=== PATIENT | female | born 1950 | race Caucasian/White ===

== ENCOUNTER 2021-12-13 21:08 | Inpatient (IN) | payer OTHER, MEDICARE, SELFPAY ==
[2021-12-13 21:09] VITALS: BP 164/67; PULSE 117; RESP 18; TEMP 37.2; O2SAT 86; BMI 24.5
--- NOTE | 2021-12-13 21:17 | EKG12_ITS ---
Test Reason : DYSRHYTHMIA Blood Pressure : / mmHG Vent. Rate : 117 BPM Atrial Rate : 117 BPM P-R Int : 158 ms QRS Dur : 088 ms QT Int : 328 ms P-R-T Axes : 016 066 080 degrees QTc Int : 457 ms Sinus tachycardia Nonspecific ST abnormality Abnormal ECG Confirmed by GERSON MORRIS, HAYLEE ([id number]), purchase request editor KALYAN MATHEW ([id number]) on 12/16/2021 1:06:00 PM Referred By: VERNA Confirmed By:HAYLEE NIETO MD
--- NOTE | 2021-12-13 21:21 | EDS_ITS ---
HPI History of Present Illness Chief Complaint: Shortness of Breath Detail of Chief Complaint: Shortness of breath the past several days with productive cough Informant: patient and spouse/S.O. Onset/Context/Timing Onset: Days Context: gradual Timing: Continuous and Waxes and wanes Quality: Positive for Dyspnea on exertion and Wheezing; Negative for Orthopnea and PND Current Severity: Moderate Maximum Severity: Severe Worsened by: Exertion and Coughing Relieved by: Nothing Associated Symptoms cough, post nasal drip, yellow sputum and green sputum; Negative for ear pain, fever, sore throat, subjective, chills or sweats Chest Pain: Positive for None Narrative Narrative: Patient is a 71-year-old unvaccinated elderly woman with history of COPD. She smokes 1/2 to 1 pack/day. She smokes since she was a teenager. She denies history of pneumonia. She denies fever or chills. She denies headache. She denies ocular, visual or auditory symptoms. She states she has chronic nasal congestion. She denies sore throat. Denies change in voice. She denies difficulty swallowing or problems with speech. She denies chest discomfort. She states she has shortness of breath walking across the room, which is new the past 24 to 48 hours. She denies history of VTE. She has no risk factors for VTE. She denies leg pain, swelling or discoloration. She denies GI symptoms. She denies symptoms. PE Risk Factors: Negative for Cancer, OCP + Smoking + > 35, Prior DVT or PE, Recent immobilization, Recent surgery and Recent travel Prior similar symptoms: No Recent Illness/Hospitalization: No PFSH PFSH Medical History no medical history Home Medications NK 12/13/21 [History Last Taken Unknown] Allergy/AdvReac Type Severity Reaction Status Date / Time nitrofurantoin Allergy PT UNSURE Verified 12/13/21 21:14 [From Macrodantin] OF REACTION Surgical History no surgical history Social History (Updated 12/13/21 @ 21:[address] Angel León MD) household members: spouse Smoking Status: Heavy Smoker (>10/day) substance use type: does not use ROS ROS ED Constitutional Constitutional ED: Denies chills, fever(s), sweats or weight loss Eyes Eyes: Denies blurry vision, change in vision or diplopia ENT ENT ED: Denies ear pain, rhinorrhea or sore throat Cardiovascular Cardiovascular: Reports racing heartbeat; Denies chest pain, orthopnea, palpitations or paroxysmal nocturnal dyspnea Respiratory/Chest Respiratory/Chest: Reports cough, dyspnea, dyspnea on exertion and sputum; Denies orthopnea or paroxysmal nocturnal dyspnea Gastrointestinal Gastrointestinal: Denies abdominal pain, constipation, diarrhea, melena, nausea or vomiting Genitourinary Genitourinary ED: Denies dysuria, hematuria or urinary frequency Musculoskeletal Musculoskeletal: Denies arthralgias, back pain, myalgias or neck pain Integumentary Denies Abrasions or rash Neurologic Neurologic: Denies headache(s), paresthesias or weakness Psychiatric Psychiatric: Reports anxiety; Denies depression or suicidal thoughts Endocrine Endocrinology: Denies polydipsia, polyphagia or polyuria Hematologic/Lymphatic Hematologic/Lymphatic: Denies anemia, easy bleeding or easy bruising EXAM Physical Exam Const Vital Signs: 12/13/21 21:09 12/13/21 21:22 12/13/21 21:24 Temperature 99.0 F Temperature Source Temporal Pulse Rate 117 H 115 H Respiratory Rate 18 28 H Respiratory Effort Short of Breath Labored Respiratory Depth Shallow Respiratory Pattern Tachypnea Blood Pressure 164/67 H Blood Pressure Mean 99 Pulse Ox 86 90 95 Oxygen Delivery Method Room Air Nasal Cannula Nasal Cannula Oxygen Flow Rate (L/min) 2 3 Positive well nourished, well developed and cachectic General Appearance ED: well developed, cachectic and other Patient is in respiratory distress with use of accessory muscles and mild retractions. She is able to say 1 word before gasping for breath. ; Negative for NAD Nutritional Appearance: cachectic HEENT Reports TM's clear and moist mucous membranes HEENT Narrative: Nares patent. Ears normal. Posterior pharynx out erythema or exudate. atraumatic; Negative for trauma or tenderness Tympanic Membrane ED: Yes TM's clear Eyes PERRL and EOMs intact bilaterally General Eye ED: Negative for pale conjunctiva or scleral icterus Neck no lymphadenopathy, supple, no meningeal signs and no JVD Neck Narrative: Trachea is midline. There is no inspiratory or expiratory wheezing/stridor noted. Resp No normal respiratory effort and No clear to auscultation bilaterally Effort and Inspection: Negative for pain with movement Auscultation: wheezes expiratory wheezes and scattered wheezes and diminished lung sounds Cardio regular rhythm, S1 normal heart sound, S2 normal heart sound and no murmurs Rate: tachycardic GI non-tender, non-distended and no masses Auscultation: normoactive bowel sounds Palpation: soft Back/Spine no CVA tenderness and normal to inspection Extremity normal to inspection Extremity Narrative: There is no asymmetry, swelling, discoloration, leg vein distention, palpable cords or tenderness along the distribution of the deep venous system. General Extremety ED: Negative for edema or tenderness General Extremity: Negative for edema Neuro oriented x3, CN's II-XII intact bilaterally and no sensory deficits noted Koppel Coma Scale: document GCS findings Spontaneous Obeys Commands Oriented 15 Sensorium / Orientation: alert Motor Exam: strength 5/5 throughout Psych mental status grossly normal Thought Process: normal thought process Skin no wounds and skin turgor normal Lesions: no lesions Rashes: no rashes Trauma: other Acrocyanosis MDM MDM MDM Narrative Medical decision making narrative: Pain sent during exam coughed thick green- yellow sputum. She has scattered wheezing and abnormal breath sounds bilateral but diminished breath sounds. Concerned she has pneumonia versus exacerbation of COPD. She was treated with DuoNeb and albuterol. Will receive dose of Solu- Medrol as well as antibiotics. Chest x-ray was obtained to evaluate for pneu monia. EKG to rule out cardiac ischemia. Appropriate blood work to assess white count, evaluate for anemia, evidence of endorgan dysfunction as well as renal status. I did review radiology report and radiologist raises concern for bilateral lower pneumonia. ABG reveals a normal pH and CO2 however patient is tachypneic and would indicate that patient has chronic CO2 retention. Lab Data Attestation: I reviewed the patient's lab results. Lab results narrative: Lactate is normal. Labs: Laboratory Results - last 24 hr 12/13/21 12/13/21 12/13/21 21:22 21:22 21:22 WBC 16.1 H RBC 5.38 Hgb 14.7 Hct 47.0 MCV 87.4 MCH 27.3 MCHC 31.3 L RDW Std Deviation 43.9 RDW Coeff of Mariama 13.7 Plt Count 278 MPV 10.8 Immature Gran % (Auto) 0.400 Neut % (Auto) 82.8 H Lymph % (Auto) 10.3 L [place] % (Auto) 6.3 Eos % (Auto) 0.0 Baso % (Auto) 0.2 Absolute Neuts (auto) 13.4 H Absolute Lymphs (auto) 1.66 Nucleated RBC % 0 Sodium 135 L Potassium 3.6 Chloride 102 Carbon Dioxide 25.0 Anion Gap 8 BUN 16 Creatinine 0.95 Estim Creat Clear Calc 40.99 Est GFR (MDRD) Af Amer 75 Est GFR (MDRD) Non-Af 62 BUN/Creatinine Ratio 16.8 Glucose 206 H Lactic Acid 1.3 Calcium 9.6 Total Bilirubin 0.70 AST 25 ALT 25 Alkaline Phosphatase 118 H Total Protein 8.2 Albumin 3.6 Globulin 4.6 H Albumin/Globulin Ratio 0.8 L ABG Data ABG results: ABG 12/13/21 21:48 Specimen Type ART Sample Site L Radial pH 7.41 Bicarbonate Actual 25.5 Total CO2 27 Base Excess 1 O2 Saturation 96 ABG pCO2 40.1 ABG pO2 78 Rajesh Test Positive O2 Delivery Device Cannula Liter Flow 3.0 Radiography Chest X-Ray - ED: 1 View, Read by ED Physician (View portable chest x-ray is independently interpreted by ia at 2147 as negative for any acute pathology. There is minor chronic changes. Cardiac silhouette and size normal. Perihilar regions unremarkable. Osseous structures are unremarkable.) and - (Reviewing chest x-ray on monitor versus the portable machine reveals increased interstitial markings right lower lobe which may represent an early infiltrate.) Diagnostic Testing: Clinical Impression(s) from Imaging Studies Chest X-Ray 12/13/21 21:43 IMPRESSION: Subtle ill-defined heterogeneous opacities involving the lower lungs bilaterally. Consider pneumonia in the appropriate clinical setting. Electronically Signed: Jacinto Conley MD at 22:00 EDT , EKG Initial EKG: Attestation: I personally reviewed and interpreted this EKG as follows: Interpretation: Sinus Tachycardia (Sinus tachycardia with a ventricular rate of 117. ND interval 258 ms. QS duration 88 ms. QT duration 228 ms. Maria Stein is normal. There is artifact which computer is reading is nonspecific ST-T wave changes.) Discharge Plan Dx/Rx/DC Orders Clinical Impression: Acute respiratory failure with hypoxia, Pneumonia of both lower lobes, Acute exacerbation of chronic obstructive pulmonary disease, Sinus tachycardia Disposition Disposition: Acute Care Hospital [facility]
[2021-12-13 21:22] VITALS: O2SAT 90
[2021-12-13 21:24] VITALS: PULSE 115; RESP 24; RESP 28; O2SAT 95
[2021-12-13] MEDS: Ipratropium/Albuterol Sulfate 3 ML AMPUL.NEB INHALATION (21:24)
[2021-12-13 21:42] LABS: Absolute Lymphocyte Count 1.66 X10^3/uL (0.83-4.51); Absolute Neutrophil Count 13.4 X10^3/uL (2.0-7.7); Basophil# 0.03 X10^3/uL; Basophil% 0.2 % (0-1); Hemoglobin 14.7 g/dL (12.0-15.0); Lymphocyte # 1.66 X10^3/ul (0.83-4.51); Lymphocyte % 10.3 % (19-41); Mean Corp Hgb Conc 31.3 g/dL (32-36); Mean Corpuscular Hgb 27.3 pg (27.0-32.0); Mean Corpuscular Volume 87.4 fL (81-99); Mean Platelet Vol. 10.8 fl (6.2-12.0); Monocyte# 1.01 X10^3/uL; Monocyte% 6.3 % (0-10); NRBC Flagged by Analyzer 0 % (0-5); Neutrophil # 13.35 X10^3/uL (2.7-7.7); Neutrophil % 82.8 % (47-70); Platelet Count 278 K/mm3 (150-450); RBC Distribution Width CV 13.7 % (11.6-14.6); RBC Distribution Width SD 43.9 fl (35.1-43.9); Red Blood Count 5.38 M/mm3 (4.2-5.4); White Blood Count 16.1 K/mm3 (4.4-11.0)
--- NOTE | 2021-12-13 21:43 | RAD_ITS ---
EXAM: XR CHEST, 1 VIEW CLINICAL INDICATION: Dyspnea, GONCALVES, productive cough TECHNIQUE: Frontal view of the chest. This report was created using [employer] report generation technology. COMPARISON: None. FINDINGS: LUNGS AND PLEURAL SPACES: Emphysema suspected at the upper lobes where there is oligemia and increased lucency. Small right pleural effusion. Interstitial thickening involving the mid to lower lungs. Differential may include interstitial pulmonary edema. Subtle ill-defined heterogeneous opacities involving the lower lungs bilaterally. No pneumothorax. HEART: Unremarkable. Cardiac silhouette not enlarged. MEDIASTINUM: Central airways and mediastinal contour are unremarkable. BONES/JOINTS: Degenerative changes of the spine and acromioclavicular joints. SOFT TISSUES: Unremarkable. RAD/Chest 1 View (Portable) IMPRESSION: Subtle ill-defined heterogeneous opacities involving the lower lungs bilaterally. Consider pneumonia in the appropriate clinical setting. Electronically Signed: Jacinto Conley MD at 22:00 EDT ,
[2021-12-13] MEDS: MethylPREDNISolone 125 MG/2 ML Vial 60 MG IV (21:49)
[2021-12-13] MEDS: 0.9% Normal Saline 1,000 ML 150 ML IV (21:50)
[2021-12-13] MEDS: levoFLOXacin IV 750 MG/150 ML BAG 100 MG IV (21:53)
[2021-12-13 21:55] LABS: Allen Test Positive; Base Excess 1 mmol/L (-2 to +2); Bicarbonate 25.5 mmol/L (22-26); Blood Gas Specimen Type ART; O2 Delivery Device Cannula; PO2 78 mmHG (75-100); SITE L Radial; SO2 96 % (95-99); Total Carbon Dioxide 27 mmol/L; pCO2 40.1 mmHg (35-45); pH 7.41 (7.35-7.45)
[2021-12-13 22:00] LABS: ALB/GLOB Ratio 0.8 RATIO (0.9-2.4); AST(SGOT) 25 U/L (15-37); Alanine Aminotransfer ALT/SGPT 25 U/L (13-56); Albumin, Serum 3.6 g/dL (3.2-5.0); Alkaline Phosphatase 118 U/L (45-117); Anion Gap 8 (5-15); BUN 16 mg/dL (7-18); BUN/Creat Ratio 16.8 RATIO (10-20); Calcium,Total 9.6 mg/dL (8.5-10.1); Chloride 102 mmol/L (98-107); Creatinine, Serum 0.95 mg/dL (0.55-1.02); EST Glomerular Filtration Rate 62 mL/min (>60); Est Glom Filt Rate - Afr Amer 75 mL/min (>60); Estimated Creatinine Clearance 40.99 ml/min; Globulin 4.6 g/dL (2.2-4.2); Glucose 206 mg/dL (74-106); Potassium 3.6 mmol/L (3.5-5.1); Protein, Total 8.2 g/dL (6.4-8.2); Sodium Level 135 mmol/L (136-145)
[2021-12-13 22:09] LABS: Lactic Acid 1.3 mmol/L (0.4-1.9)
--- NOTE | 2021-12-13 22:29 | HP.PCM.HOS_ITS ---
HPI - General General Date of Admission: 12/13/21 Date of Service: 12/13/21 Chief Complaint: Dyspnea, productive cough. HPI Narrative The patient is a 71 y/o F w/ PMHx: COPD, Tobacco use on no current treatments who presents to the [facility] ED on 12/13/21 with history of 2 days of significantly worsening fatigue, malaise, productive cough of green thick sputum as well as significant cough that is been intractable with wheezing not improving with rest with no specific fevers or chills prompting ED evaluation. Patient has not seen a vocational aide nor has she ever had any pulmonary function testing performed. She has continued to smoke 2 pack/day since she was in her early teens. In the ED she does note some mild improvement following aerosol treatments. Work-up in the ED included T 99, heart rate initially 117, BP 164/67, respiratory rate 18, 86% on room air with improvement to 95% on 3 L nasal cannula however patient had significant work of breathing accessory muscle usage per discussion with ED physician and upon evaluation initially, CBC with WC 16.1, hemoglobin 14.7, platelet 278 with left shift, ABG not marked appearing, CMP with sodium 135, glucose 206, lactic acid 1.3, alk phos 118 otherwise not marked appearing, chest x-ray with subtle ill-defined heterogeneous opacities in both bilateral lungs concerning for pneumonia, blood culture x2 pending per ED, pending COVID rapid antigen per ED. In the ED patient ministered Solu-Medrol, Levaquin, DuoNeb therapy and normal saline. [facility] Medical History COPD (chronic obstructive pulmonary disease) Smoker Medical History no medical history Home Medications NK 12/13/21 [History Last Taken Unknown] Allergy/AdvReac Type Severity Reaction Status Date / Time nitrofurantoin Allergy PT UNSURE Verified 12/13/21 21:14 [From Macrodantin] OF REACTION Family History (Updated 12/13/21 @ 23:[address] Freida Dior MD) Mother Heart disease Dementia Father Lung cancer Underlying tobacco use history concurrently. Surgical History (Updated 12/13/21 @ 23:[address] Freida Dior MD) History of bilateral tubal ligation Hx of hernia repair Surgical History no surgical history Social History (Updated 12/13/21 @ 23:[address] Freida Dior MD) household members: spouse Smoking Status: Current every day smoker tobacco type: cigarettes Smoking packs per day: 2 Smoking cigarettes per day: 40.0 Years smoked: 55 Smoking pack-years: 110.00 alcohol intake: never substance use type: does not use ROS ROS Narrative Admission Review of Systems: CONSTITUTIONAL: No weight loss, fever, chills, + weakness or fatigue. HEENT: Eyes: No visual loss, blurred vision, double vision or yellow sclerae. Ears, Nose, Throat: No hearing loss, sneezing, congestion, runny nose or sore throat. SKIN: No rash or itching, lesions, wounds. CARDIOVASCULAR: No chest pain, chest pressure or chest discomfort, palpitations, edema, orthopnea, syncopal events. RESPIRATORY: + Shortness of breath, cough with productive sputum, wheezing, No hemoptysis. GASTROINTESTINAL: No anorexia, nausea, vomiting or diarrhea, abdominal pain, melena, BRBPR. GENITOURINARY: No dysuria, frequency, urgency or retention. NEUROLOGICAL: No headache, dizziness, syncope, paralysis, ataxia, numbness or tingling in the extremities, focal weakness, change in bowel or bladder control, seizure. MUSCULOSKELETAL: + muscle, back pain, joint pain or stiffness. HEMATOLOGIC: No anemia, bleeding or bruising. LYMPHATICS: No enlarged nodes. No history of splenectomy. PSYCHIATRIC: No history of depression or anxiety. ENDOCRINOLOGIC: No reports of sweating, cold or heat intolerance. No polyuria or polydipsia. ALLERGIES: + rhinitis. Vital Signs Vital Signs Vital Signs: 12/13/21 21:09 12/13/21 21:22 12/13/21 21:24 Temperature 99.0 F Temperature Source Temporal Pulse Rate 117 H 115 H Respiratory Rate 18 28 H Respiratory Effort Short of Breath Labored Respiratory Depth Shallow Respiratory Pattern Tachypnea Blood Pressure 164/67 H Blood Pressure Mean 99 Pulse Ox 86 90 95 Oxygen Delivery Method Room Air Nasal Cannula Nasal Cannula Oxygen Flow Rate (L/min) 2 3 Weight Weight: 130 lb Body Mass Index (BMI) 24.5 Physical Exam Narrative Physical Examination: General: Awake, alert, oriented x 3 and cooperative, seated upright in the ED bed, fatigued, increased work of breathing and some accessory muscle usage, improved significantly since initial ED presentation. Skin: Normal color, normal turgor, no icterus, no cyanosis. HEENT: AT/NC, EOMI, PERRLA, mildly dry MM, no carotid bruits or JVD noted. Lungs: Diffusely diminished, greater bases, extremely tight, currently no wheezi ng but not moving air well, increased work of breathing accessory muscle usage although improved since initial ED presentation, respiratory distress is lessening. Heart: Mildly tachycardic with regular rhythm; no gallop, rub audible. Abdomen: Soft, NTTP, ND, distant normal BS, no HSM. Extremities: No cyanosis, clubbing, or edema. Neurological: Patient awake, alert, oriented as noted, cognitive function appears baseline intact; pupils equally reactive to light and accommodation, cranial nerves II-XII grossly normal, moving all 4 extremities, no focal deficits, strength severely globally Lara secondary to acute presentation. Psychiatric: Affect appears fatigued, respiratory distress is improving, no acute evidence of depressive or anxiety feelings. Results Lab / Micro Data Result Diagrams: 12/13/21 21:22 12/13/21 21:22 Labs: Laboratory Results - last 24 hr 12/13/21 21:22: WBC 16.1 H, RBC 5.38, Hgb 14.7, Hct 47.0, MCV 87.4, MCH 27.3, MCHC 31.3 L, RDW Std Deviation 43.9, RDW Coeff of Mariama 13.7, Plt Count 278, MPV 10.8, Immature Gran % (Auto) 0.400, Neut % (Auto) 82.8 H, Lymph % (Auto) 10.3 L, [place] % (Auto) 6.3, Eos % (Auto) 0.0, Baso % (Auto) 0.2, Absolute Neuts (auto) 13.4 H, Absolute Lymphs (auto) 1.66, Nucleated RBC % 0 12/13/21 21:22: Sodium 135 L, Potassium 3.6, Chloride 102, Carbon Dioxide 25.0, Anion Gap 8, BUN 16, Creatinine 0.95, Estim Creat Clear Calc 40.99, Est GFR (MDRD) Af Amer 75, Est GFR (MDRD) Non-Af 62, BUN/Creatinine Ratio 16.8, Glucose 206 H, Calcium 9.6, Total Bilirubin 0.70, AST 25, ALT 25, Alkaline Phosphatase 118 H, Total Protein 8.2, Albumin 3.6, Globulin 4.6 H, Albumin/Globulin Ratio 0.8 L 12/13/21 21:22: Lactic Acid 1.3 ABG Data ABG results: ABG 12/13/21 21:48 Specimen Type ART Sample Site L Radial pH 7.41 Bicarbonate Actual 25.5 Total CO2 27 Base Excess 1 O2 Saturation 96 ABG pCO2 40.1 ABG pO2 78 Rajesh Test Positive O2 Delivery Device Cannula Liter Flow 3.0 Radiology Impression Chest X-Ray 12/13/21 21:43 IMPRESSION: Subtle ill-defined heterogeneous opacities involving the lower lungs bilaterally. Consider pneumonia in the appropriate clinical setting. Electronically Signed: Jacinto Conley MD at 22:00 EDT , Assessment & Plan Assessment/Plan (1) COPD (chronic obstructive pulmonary disease): QUALIFIERS: COPD type: COPD with acute exacerbation Qualified Code(s): J44.1 - Chronic obstructive pulmonary disease with (acute) exacerbation (2) Pneumonia of both lower lobes: QUALIFIERS: Pneumonia type: due to unspecified organism Qualified Code(s): J18.9 - Pneumonia, unspecified organism (3) Acute respiratory failure with hypoxia: PLAN: The patient is a 71 y/o F w/ PMHx: COPD, Tobacco use on no current treatments who presents to the [facility] ED on 12/13/21 with history of 2 days of significantly worsening fatigue, malaise, productive cough of green thick sputum as well as significant cough that is been intractable with wheezing not improving with rest with no specific fevers or chills prompting ED evaluation. #1. Acute Hypoxic Respiratory Failure secondary to Acute COPD Exacerbation and CAP Pneumonia: Will admit to [facility] given patient's clinically improved since initial ED presentation, respiratory distress is lessening, maintain on oxygen with wean as tolerated to room air, continue ATC duonebs, PRN albuterol, maintained on IV Rocephin and Azithromycin, HOB, IS parameters w/ pending sputum cultures, respiratory viral panel and urine antigens. Bld cx x 2 obtained in the ED. strongly encouraged following completion of this therapy and discharge the patient would benefit from follow-up with pulmonary medicine, pulmonary function testing and potentially imaging given the fact that she is smoked nearly 2 pack/day for 55 years. #2. Elevated BP without hypertensive diagnosis: Certainly could be secondary to #1, continue to closely monitor and add regimen orally if appropriate, as needed IV hydralazine in interim. #3. Hyperglycemia: Possibly stress response, admission glucose 206, hemoglobin A1c has been requested and if consistent with diabetes with transition to ADA diet with Accu-Cheks with insulin sliding scale and nutrition consultation for education and teaching. #4. Tobacco Abuse: Encouraged cessation, inpatient consultation per RT, NR if desired. #5. DVT prophylaxis: SCDs, Lovenox Charges/Coding Visit Charges Inpatient E&M: 01924 Init Hosp L3
[2021-12-13 23:00] VITALS: RESP 17
[2021-12-13] MEDS: LORazepam 0.5 MG Tablet PO (23:00)
[2021-12-13 23:01] VITALS: BP 151/85; PULSE 85; RESP 15; TEMP 37.2; O2SAT 98
[2021-12-13 23:29] VITALS: BMI 25.6
[2021-12-13 23:34] VITALS: BP 144/79; PULSE 104; RESP 24; TEMP 37.1; O2SAT 95
[2021-12-14] VITALS (10 sets, daily range): BP systolic 107–146; BP diastolic 63–86; PULSE 89–100; RESP 18–20; TEMP 36.6–36.8; O2SAT 92–97
--- NOTE | 2021-12-14 00:16 | NURSING ---
pt refusing scd's
--- NOTE | 2021-12-14 00:21 | NURSING ---
Patient very reluctant to care on admission. Refusing iv fluids through the night as patient is tired of pump beeping. Also does not want woke up through the shift. Dr. Dior aware that patient is refusing vitals being taken as the VSA recommends.
--- NOTE | 2021-12-14 00:25 | NURSING ---
pt refusing fluids. pt vsa q 1-2 hr vitals. pt states you are not going to wake me up. pt requesting that she not be woken up until 9am. notifyuliet
[2021-12-14] MEDS: 0.9% Saline Lock 10 ML Syringe IV ×2 (06:05→21:16)
--- NOTE | 2021-12-14 07:02 | PCM.PN.HOSP ---
Subjective Subjective Patient is a 71-year-old female with history of COPD, tobacco dependence presented with progressive shortness of breath. Checks x-ray obtained in the ED demonstrated ill-defined heterogeneous opacities involving the lower lungs bilaterally. Admitted to regular nursing floor for further management Objective Data Objective Data Vital Signs: Vital Signs Temp Pulse Resp BP Pulse Ox 98.3 F 92 20 H 146/63 H 92 12/14/21 06:08 12/14/21 06:08 12/14/21 06:08 12/14/21 06:08 12/14/21 06:08 Oxygen Flow Rate (L/min) 2 Oxygen Delivery Method Nasal Cannula Weight: 63.4 kg Body Mass Index (BMI) 25.6 Intake & Output: Intake and Output for Last 24 Hours 12/12/21 12/13/21 12/14/21 23:59 23:59 23:59 Intake Total 427.5 / 427.5 271.67 / 271.67 Balance 427.5 / 427.5 271.67 / 271.67 Lab / Micro Data Result Diagrams: 12/13/21 21:22 12/13/21 21:22 Labs: Laboratory Results - last 24 hr 12/13/21 21:22: WBC 16.1 H, RBC 5.38, Hgb 14.7, Hct 47.0, MCV 87.4, MCH 27.3, MCHC 31.3 L, RDW Std Deviation 43.9, RDW Coeff of Mariama 13.7, Plt Count 278, MPV 10.8, Immature Gran % (Auto) 0.400, Neut % (Auto) 82.8 H, Lymph % (Auto) 10.3 L, [place] % (Auto) 6.3, Eos % (Auto) 0.0, Baso % (Auto) 0.2, Absolute Neuts (auto) 13.4 H, Absolute Lymphs (auto) 1.66, Nucleated RBC % 0 12/13/21 21:22: Sodium 135 L, Potassium 3.6, Chloride 102, Carbon Dioxide 25.0, Anion Gap 8, BUN 16, Creatinine 0.95, Estim Creat Clear Calc 40.99, Est GFR (MDRD) Af Amer 75, Est GFR (MDRD) Non-Af 62, BUN/Creatinine Ratio 16.8, Glucose 206 H, Calcium 9.6, Total Bilirubin 0.70, AST 25, ALT 25, Alkaline Phosphatase 118 H, Total Protein 8.2, Albumin 3.6, Globulin 4.6 H, Albumin/Globulin Ratio 0.8 L 12/13/21 21:22: Lactic Acid 1.3 Micro: Microbiology 12/13/21 23:35 Mucosa - Nasopharyngeal Respiratory Panel (PCR) - Final 12/13/21 21:22 Nasal Secretion SARS-CoV-2 & FLU Antigen (Rapid) - Final ABG Data ABG results: ABG 12/13/21 21:48 Specimen Type ART Sample Site L Radial pH 7.41 Bicarbonate Actual 25.5 Total CO2 27 Base Excess 1 O2 Saturation 96 ABG pCO2 40.1 ABG pO2 78 Rajesh Test Positive O2 Delivery Device Cannula Liter Flow 3.0 Radiography Diagnostic Testing: Radiology Impression Chest X-Ray 12/13/21 21:43 IMPRESSION: Subtle ill-defined heterogeneous opacities involving the lower lungs bilaterally. Consider pneumonia in the appropriate clinical setting. Electronically Signed: Jacinto Conley MD at 22:00 EDT , Physical Exam Narrative GENERAL: cooperative HEENT: Atraumatic; EYES; Anicteric, Normal Conjunctiva NECK; supple, normal thyroid, RESPIRATORY: Diminished to auscultation CARDIOVASCULAR: Regular S1 S2, GI: soft, normoactive bowel sounds, : No Renal angle tenderness; EXTREMITIES: No edema, no clubbing, MUSCULOSKELETAL: no muscle wasting NEURO: Awake; no lateralizing signs. SKIN: No Rash PSYCH; Flat affect Assessment & Plan Assessment/Plan (1) COPD (chronic obstructive pulmonary disease): QUALIFIERS: COPD type: COPD with acute exacerbation Qualified Code(s): J44.1 - Chronic obstructive pulmonary disease with (acute) exacerbation (2) Pneumonia of both lower lobes: QUALIFIERS: Pneumonia type: due to unspecified organism Qualified Code(s): J18.9 - Pneumonia, unspecified organism PLAN: Patient is a 71-year-old female with history of COPD, tobacco dependence presented with progressive shortness of breath. Checks x-ray obtained in the ED demonstrated ill-defined heterogeneous opacities involving the lower lungs bilaterally. Admitted to regular nursing floor for further management 1. Acute hypoxic respiratory failure ruled out 2. Pneumonia - Suspected to be secondary to streptococcal pneumonia, Blood and sputum cultures sent. Patient placed on Rocephin and Zithromax and placed on oxygen titrated to keep Pulse Ox greater than 90 3. COPD with acute exacerbation ? Managed with bronchodilator regimen systemic steroids and antibiotics 4. Elevated blood pressure ? Monitoring with every shift vital 5. Elevated glucose levels ? Hemoglobin A1c ordered to rule out diabetes 6. Tobacco dependence - Counseled on cessation, offered nicotine patch for tobacco cravings 7. DVT prophylaxis ? Lovenox Charges/Coding Visit Charges Inpatient E&M: 24710 Subs Hosp L2
[2021-12-14] MEDS: Albuterol 2.5 MG/3 ML VIAL.NEB. INHALATION ×2 (08:24→20:16)
[2021-12-14 09:17] LABS: Absolute Lymphocyte Count 1.09 X10^3/uL (0.83-4.51); Absolute Neutrophil Count 9.6 X10^3/uL (2.0-7.7); Basophil# 0.01 X10^3/uL; Basophil% 0.1 % (0-1); Hematocrit 45.7 % (37-47); Hemoglobin 13.9 g/dL (12.0-15.0); Lymphocyte # 1.09 X10^3/ul (0.83-4.51); Lymphocyte % 10.1 % (19-41); Mean Corp Hgb Conc 30.4 g/dL (32-36); Mean Corpuscular Hgb 26.6 pg (27.0-32.0); Mean Corpuscular Volume 87.5 fL (81-99); Monocyte# 0.09 X10^3/uL; Monocyte% 0.8 % (0-10); NRBC Flagged by Analyzer 0 % (0-5); Neutrophil # 9.55 X10^3/uL (2.7-7.7); Neutrophil % 88.8 % (47-70); Platelet Count 296 K/mm3 (150-450); RBC Distribution Width CV 13.4 % (11.6-14.6); RBC Distribution Width SD 43.4 fl (35.1-43.9); Red Blood Count 5.22 M/mm3 (4.2-5.4); White Blood Count 10.8 K/mm3 (4.4-11.0)
[2021-12-14 09:37] LABS: ALB/GLOB Ratio 0.8 RATIO (0.9-2.4); AST(SGOT) 22 U/L (15-37); Alanine Aminotransfer ALT/SGPT 25 U/L (13-56); Albumin, Serum 3.3 g/dL (3.2-5.0); Alkaline Phosphatase 115 U/L (45-117); Anion Gap 8 (5-15); BUN 18 mg/dL (7-18); BUN/Creat Ratio 19.3 RATIO (10-20); Calcium,Total 9.4 mg/dL (8.5-10.1); Chloride 100 mmol/L (98-107); Creatinine, Serum 0.93 mg/dL (0.55-1.02); EST Glomerular Filtration Rate 63 mL/min (>60); Est Glom Filt Rate - Afr Amer 76 mL/min (>60); Estimated Creatinine Clearance 41.87 ml/min; Globulin 4.4 g/dL (2.2-4.2); Glucose 177 mg/dL (74-106); Potassium 3.2 mmol/L (3.5-5.1); Protein, Total 7.7 g/dL (6.4-8.2); Sodium Level 137 mmol/L (136-145)
[2021-12-14] MEDS: Ceftriaxone 1 GM/50 ML BAG IV (09:43)
[2021-12-14] MEDS: Enoxaparin 40 MG/0.4 ML Syringe SC (09:44)
[2021-12-14 09:47] LABS: Hemoglobin A1c 6.1 % (3.8-5.6)
--- NOTE | 2021-12-14 11:20 | CASEMGMT ---
ROLA PAINTER assessment: Face to Face with patient for initial transition planning/care coordination assessment. ROLA PAINTER introduced self and role at [facility], pt voices understanding and consents to assessment. Pt is sitting up on side of bed on 2L nc in no distress. Pt is A/Ox4 and answers all questions appropriately, but is very short and annoyed with questions being asked. Pt is also upset that she can't just ambulate freely around room and pt's RN updated. Pt's daughter is at bedside during assessment. Care providers, pharmacy, and demographics verified. Presentation: Pt c/o SOB that started yesterday and is getting worse Admitting dx: Resp failure, COPD exac, pna PCP: Pt states no current PCP Specialists: None [facility]erred [facility]acy: [facility] Insurance: Cigna/MCR A Prescription Benefit: Yes Living Will/HPOA: Pt does not have LW/HPOA and declines AD info. LNOK: Christos Vasquez, Living Arrangements: Pt lives with in mobile home with railed steps in and states no concerns at home. Pt is independent with ADL's. Transportation: Pt drives and states no transportation concerns. DME/HHC: Pt states no current DME or need for any DME. Pt states she would absolutely not be going home with oxygen at discharge. Pt states no hx of HHC or SNF. Pt states no concerns with going home at time of discharge. Pt is retired. Pt states smokes 1.5 pack/day but does not drink ETOH. Pt voices no further concerns/needs. CM to follow for any further discharge planning/needs. Advised pt to ask for CM if any further questions/concerns/needs arise, voices understanding. Pt Goal: Home Plan[place] [facility]
[2021-12-14] MEDS: Ipratropium/Albuterol Sulfate 3 ML AMPUL.NEB INHALATION (15:02)
[2021-12-14] MEDS: Sodium Chloride 0.65% 1 SPRAY SPRAY.BTL NASAL (21:17)
[2021-12-15] VITALS (10 sets, daily range): BP systolic 128–145; BP diastolic 62–79; PULSE 76–95; RESP 18–20; TEMP 36.4–36.7; O2SAT 84–96
[2021-12-15] MEDS: 0.9% Saline Lock 10 ML Syringe IV ×2 (05:37→21:27)
[2021-12-15 05:54] LABS: Absolute Lymphocyte Count 1.26 X10^3/uL (0.83-4.51); Basophil# 0.02 X10^3/uL; Basophil% 0.1 % (0-1); Hematocrit 43.9 % (37-47); Hemoglobin 13.4 g/dL (12.0-15.0); Lymphocyte # 1.26 X10^3/ul (0.83-4.51); Lymphocyte % 9.2 % (19-41); Mean Corp Hgb Conc 30.5 g/dL (32-36); Mean Corpuscular Hgb 27.1 pg (27.0-32.0); Mean Corpuscular Volume 88.9 fL (81-99); Mean Platelet Vol. 10.4 fl (6.2-12.0); Monocyte# 0.42 X10^3/uL; Monocyte% 3.1 % (0-10); NRBC Flagged by Analyzer 0 % (0-5); Neutrophil # 11.99 X10^3/uL (2.7-7.7); Neutrophil % 87.2 % (47-70); Platelet Count 341 K/mm3 (150-450); RBC Distribution Width CV 13.4 % (11.6-14.6); RBC Distribution Width SD 43.9 fl (35.1-43.9); Red Blood Count 4.94 M/mm3 (4.2-5.4); White Blood Count 13.8 K/mm3 (4.4-11.0)
[2021-12-15 06:55] LABS: Anion Gap 5 (5-15); BUN 23 mg/dL (7-18); BUN/Creat Ratio 25.1 RATIO (10-20); Calcium,Total 9.4 mg/dL (8.5-10.1); Chloride 101 mmol/L (98-107); Creatinine, Serum 0.92 mg/dL (0.55-1.02); EST Glomerular Filtration Rate 64 mL/min (>60); Est Glom Filt Rate - Afr Amer 78 mL/min (>60); Estimated Creatinine Clearance 42.32 ml/min; Glucose 155 mg/dL (74-106); Magnesium 2.6 mg/dL (1.6-2.6); Potassium 3.6 mmol/L (3.5-5.1); Sodium Level 137 mmol/L (136-145)
[2021-12-15] MEDS: Ipratropium/Albuterol Sulfate 3 ML AMPUL.NEB INHALATION ×3 (07:25→19:22)
--- NOTE | 2021-12-15 07:27 | PCM.PN.HOSP ---
Subjective Subjective Seen complains of persistent cough which is productive. Per nursing staff she desaturated easily once oxygen is weaned off. She was apparently reluctant to be discharged home on oxygen she did states she will consider it if needed Objective Data Objective Data Vital Signs: Vital Signs Temp Pulse Resp BP Pulse Ox 97.6 F L 83 18 139/62 H 96 12/15/21 06:04 12/15/21 06:04 12/15/21 06:04 12/15/21 06:04 12/15/21 06:04 Oxygen Flow Rate (L/min) 2 Oxygen Delivery Method Nasal Cannula Weight: 63 kg Body Mass Index (BMI) 25.6 Intake & Output: Intake and Output for Last 24 Hours 12/13/21 12/14/21 12/15/21 23:59 23:59 23:59 Intake Total 427.5 / 427.5 1659.67 / 1659.67 Balance 427.5 / 427.5 1659.67 / 1659.67 Lab / Micro Data Result Diagrams: 12/15/21 05:19 12/15/21 05:19 Labs: Laboratory Results - last 24 hr 12/14/21 09:06: WBC 10.8, RBC 5.22, Hgb 13.9, Hct 45.7, MCV 87.5, MCH 26.6 L, MCHC 30.4 L, RDW Std Deviation 43.4, RDW Coeff of Mariama 13.4, Plt Count 296, MPV 10.0, Immature Gran % (Auto) 0.200, Neut % (Auto) 88.8 H, Lymph % (Auto) 10.1 L, [place] % (Auto) 0.8, Eos % (Auto) 0.0, Baso % (Auto) 0.1, Absolute Neuts (auto) 9.6 H, Absolute Lymphs (auto) 1.09, Nucleated RBC % 0 12/14/21 09:06: Sodium 137, Potassium 3.2 L, Chloride 100, Carbon Dioxide 29.0, Anion Gap 8, BUN 18, Creatinine 0.93, Estim Creat Clear Calc 41.87, Est GFR (MDRD) Af Amer 76, Est GFR (MDRD) Non-Af 63, BUN/Creatinine Ratio 19.3, Glucose 177 H, Calcium 9.4, Total Bilirubin 0.40, AST 22, ALT 25, Alkaline Phosphatase 115, Total Protein 7.7, Albumin 3.3, Globulin 4.4 H, Albumin/Globulin Ratio 0.8 L 12/14/21 09:06: Hemoglobin A1c 6.1 H 12/15/21 05:19: WBC 13.8 H, RBC 4.94, Hgb 13.4, Hct 43.9, MCV 88.9, MCH 27.1, MCHC 30.5 L, RDW Std Deviation 43.9, RDW Coeff of Mariama 13.4, Plt Count 341, MPV 10.4, Immature Gran % (Auto) 0.400, Neut % (Auto) 87.2 H, Lymph % (Auto) 9.2 L, [place] % (Auto) 3.1, Eos % (Auto) 0.0, Baso % (Auto) 0.1, Absolute Neuts (auto) 12.0 H, Absolute Lymphs (auto) 1.26, Nucleated RBC % 0 12/15/21 05:19: Sodium 137, Potassium 3.6, Chloride 101, Carbon Dioxide 31.0, Anion Gap 5, BUN 23 H, Creatinine 0.92, Estim Creat Clear Calc 42.32, Est GFR (MDRD) Af Amer 78, Est GFR (MDRD) Non-Af 64, BUN/Creatinine Ratio 25.1 H, Glucose 155 H, Calcium 9.4, Magnesium 2.6 Micro: Microbiology 12/14/21 08:25 Sputum, Expectorated/Coughed Gram Stain - Final 12/14/21 06:45 Urine, Clean Catch Legionella Antigen - Final 12/14/21 06:45 Urine, Random Streptococcus pneumoniae Antigen (M - Final 12/13/21 23:35 Mucosa - Nasopharyngeal Respiratory Panel (PCR) - Final 12/13/21 21:22 Nasal Secretion SARS-CoV-2 & FLU Antigen (Rapid) - Final Physical Exam Narrative GENERAL: cooperative HEENT: Atraumatic; EYES; Anicteric, Normal Conjunctiva NECK; supple, normal thyroid, RESPIRATORY: Diminished to auscultation CARDIOVASCULAR: Regular S1 S2, GI: soft, normoactive bowel sounds, : No Renal angle tenderness; EXTREMITIES: No edema, no clubbing, MUSCULOSKELETAL: no muscle wasting NEURO: Awake; no lateralizing signs. SKIN: No Rash PSYCH; Flat affect Assessment & Plan Assessment/Plan (1) COPD (chronic obstructive pulmonary disease): QUALIFIERS: COPD type: COPD with acute exacerbation Qualified Code(s): J44.1 - Chronic obstructive pulmonary disease with (acute) exacerbation (2) Pneumonia of both lower lobes: QUALIFIERS: Pneumonia type: due to unspecified organism Qualified Code(s): J18.9 - Pneumonia, unspecified organism PLAN: Patient is a 71-year-old female with history of COPD, tobacco dependence presented with progressive shortness of breath. Chest x-ray obtained in the ED demonstrated ill-defined heterogeneous opacities involving the lower lungs bilaterally. Admitted to regular nursing floor for further management 1. Acute hypoxic respiratory failure ruled out 2. Pneumonia - Suspected to be secondary to streptococcal pneumonia, Blood and sputum cultures sent. Patient placed on Rocephin and Zithromax and placed on oxygen titrated to keep Pulse Ox greater than 90 ? 12/15/2021; patient still has productive cough and remains on supplemental oxygen 3. COPD with acute exacerbation ? Managed with bronchodilator regimen systemic steroids and antibiotics 4. Elevated blood pressure ? Monitoring with every shift vital 5. Elevated glucose levels ? Hemoglobin A1c ordered to rule out diabetes 6. Tobacco dependence - Counseled on cessation, offered nicotine patch for tobacco cravings 7. DVT prophylaxis ? Lovenox Charges/Coding Visit Charges Inpatient E&M: 81709 Subs Hosp L2
[2021-12-15] MEDS: Ceftriaxone 1 GM/50 ML BAG IV (09:29)
[2021-12-15] MEDS: Mag Hydrox/Al Hydrox/Simeth 30 ML UDC PO (21:32)
[2021-12-16] MEDS: 0.9% Saline Lock 10 ML Syringe IV (06:09)
[2021-12-16 06:11] LABS: Absolute Neutrophil Count 11.1 X10^3/uL (2.0-7.7); Basophil# 0.01 X10^3/uL; Basophil% 0.1 % (0-1); Hematocrit 42.2 % (37-47); Hemoglobin 12.9 g/dL (12.0-15.0); Lymphocyte % 9.4 % (19-41); Mean Corp Hgb Conc 30.6 g/dL (32-36); Mean Corpuscular Hgb 26.9 pg (27.0-32.0); Mean Corpuscular Volume 87.9 fL (81-99); Mean Platelet Vol. 10.1 fl (6.2-12.0); Monocyte# 0.33 X10^3/uL; Monocyte% 2.6 % (0-10); NRBC Flagged by Analyzer 0 % (0-5); Neutrophil # 11.13 X10^3/uL (2.7-7.7); Neutrophil % 87.2 % (47-70); Platelet Count 343 K/mm3 (150-450); RBC Distribution Width CV 13.4 % (11.6-14.6); RBC Distribution Width SD 43.9 fl (35.1-43.9); White Blood Count 12.8 K/mm3 (4.4-11.0)
[2021-12-16 06:42] LABS: Anion Gap 3 (5-15); BUN 26 mg/dL (7-18); BUN/Creat Ratio 34.5 RATIO (10-20); Calcium,Total 8.9 mg/dL (8.5-10.1); Chloride 104 mmol/L (98-107); Creatinine, Serum 0.75 mg/dL (0.55-1.02); EST Glomerular Filtration Rate 81 mL/min (>60); Est Glom Filt Rate - Afr Amer 98 mL/min (>60); Estimated Creatinine Clearance 38.94 ml/min; Glucose 185 mg/dL (74-106); Sodium Level 140 mmol/L (136-145)
[2021-12-16 07:39] VITALS: PULSE 88; RESP 18; O2SAT 92
[2021-12-16] MEDS: Ipratropium/Albuterol Sulfate 3 ML AMPUL.NEB INHALATION ×2 (07:39→11:44)
--- NOTE | 2021-12-16 08:17 | PN.HOSP_ITS ---
Subjective Subjective b reathing better.wants to go home. Objective Data Objective Data Vital Signs: Vital Signs Temp Pulse Resp BP Pulse Ox 36.5 C L 94 18 145/77 H 95 12/15/21 20:42 12/15/21 20:42 12/15/21 20:42 12/15/21 20:42 12/15/21 20:42 Oxygen Flow Rate (L/min) [ 2 AMBULATING with Oxygen #1] Oxygen Flow Rate (L/min) 2 Oxygen Delivery Method Nasal Cannula Weight: 62.8 kg Body Mass Index (BMI) 25.6 Intake & Output: Intake and Output for Last 24 Hours 12/14/21 12/15/21 12/16/21 23:59 23:59 23:59 Intake Total 1659.67 / 1659.67 1255 / 1255 Balance 1659.67 / 1659.67 1255 / 1255 Lab / Micro Data Result Diagrams: 12/16/21 05:26 12/16/21 05:26 Labs: Laboratory Results - last 24 hr 12/16/21 05:26: WBC 12.8 H, RBC 4.80, Hgb 12.9, Hct 42.2, MCV 87.9, MCH 26.9 L, MCHC 30.6 L, RDW Std Deviation 43.9, RDW Coeff of Mariama 13.4, Plt Count 343, MPV 10.1, Immature Gran % (Auto) 0.700, Neut % (Auto) 87.2 H, Lymph % (Auto) 9.4 L, [place] % (Auto) 2.6, Eos % (Auto) 0.0, Baso % (Auto) 0.1, Absolute Neuts (auto) 11.1 H, Absolute Lymphs (auto) 1.20, Nucleated RBC % 0 12/16/21 05:26: Sodium 140, Potassium 4.0, Chloride 104, Carbon Dioxide 33.0 H, Anion Gap 3 L, BUN 26 H, Creatinine 0.75, Estim Creat Clear Calc 38.94, Est GFR (MDRD) Af Amer 98, Est GFR (MDRD) Non-Af 81, BUN/Creatinine Ratio 34.5 H, Glucose 185 H, Calcium 8.9 Micro: Microbiology 12/14/21 08:25 Sputum, Expectorated/Coughed Gram Stain - Final 12/14/21 08:25 Sputum, Expectorated/Coughed Respiratory Culture - Preliminary Appears to be normal respiratory [place]. Further studies to follow. 12/14/21 06:45 Urine, Clean Catch Legionella Antigen - Final 12/14/21 06:45 Urine, Random Streptococcus pneumoniae Antigen (M - Final 12/13/21 23:35 Mucosa - Nasopharyngeal Respiratory Panel (PCR) - Final 12/13/21 21:22 Nasal Secretion SARS-CoV-2 & FLU Antigen (Rapid) - Final Physical Exam Const Constitutional Narrative: anxious Resp normal respiratory effort, no retractions, no use of accessory muscles and clear to auscultation bilaterally Cardio regular rate, regular rhythm, S1 normal heart sound and S2 normal heart sound GI normal to inspection, nondistended, normoactive bowel sounds, soft to palpation, non-tender and non-distended Assessment & Plan Assessment/Plan (1) COPD (chronic obstructive pulmonary disease): QUALIFIERS: COPD type: COPD with acute exacerbation Qualified Code(s): J44.1 - Chronic obstructive pulmonary disease with (acute) exacerbation (2) Pneumonia of both lower lobes: QUALIFIERS: Pneumonia type: due to unspecified organism Qualified Code(s): J18.9 - Pneumonia, unspecified organism PLAN: 1. Acute hypoxic respiratory failure ruled out 2. Pneumonia * Suspected to be secondary to streptococcal pneumonia * Patient placed on Rocephin and Zithromax and placed on oxygen titrated to keep Pulse Ox greater than 90 * SCX thus far negative. Strep and Legionella antigen negative. No clear infiltrate on CXR, * 12/15/2021; patient still has productive cough and remains on supplemental oxy gen * 12/16: infectious work up negative. dc with Augmentin for 3 more days 3. COPD with acute exacerbation * Managed with bronchodilator regimen systemic steroids and antibiotics * prednisone * follow up w pulm as outpt 4. Elevated blood pressure * Monitoring with every shift vital 5. Elevated glucose levels * Hemoglobin A1c 6.1 * exacerbated by steroids 6. Tobacco dependence * Counseled on cessation, offered nicotine patch for tobacco cravings 7. DVT prophylaxis * Lovenox 8. Anxiety * complicates care and recovery.
[2021-12-16 09:15] VITALS: BP 157/69; PULSE 84; RESP 18; TEMP 36.8; O2SAT 95
[2021-12-16] MEDS: Ceftriaxone 1 GM/50 ML BAG IV (09:24)
[2021-12-16 09:30] VITALS: RESP 18
[2021-12-16 10:31] VITALS: O2SAT 85; O2SAT 92; O2SAT 93
[2021-12-16 11:45] VITALS: PULSE 86; RESP 20
--- NOTE | 2021-12-16 12:49 | DCINST_ITS ---
Discharge Instructions Diet Discharge Diet: No restrictions Activity Discharge Activity: Return to Normal Activity Dressing / Incision Call your doctor if you observe: Shortness of breath Follow Up Care Test Results: Test results from this visit will be discussed in further detail at your follow-up appointment, if applicable. Discharge Plan Admission Admit Date/Time: 12/13/21 22:45 Primary Reason for Your Visit: COPD exacerbation. Pneumonia Attending Provider: Ace Biggs Primary Care Provider: Care Physician,No Primary Consulting Providers: Freida Dior ; Dixon Avila Discharge Orders/Prescriptions Prescriptions: New prednisone 20 mg tablet 40 mg PO DAILY 5 Days Qty: 10 RF: 0 albuterol sulfate 90 mcg/actuation HFA aerosol inhaler 2 puff inhalation Q6H PRN (Reason: shortness of breath or wheezing) Qty: 8.5 RF: 0 amoxicillin-pot clavulanate 875-125 mg tablet 1 tab PO Q12H Qty: 6 RF: 0 No Action NK RF: 0 Referrals / Follow Up: [facility] [Provider Group] - Within 1 Month Care Physician,No Primary [Primary Care Provider] - Within 2 Weeks (establish with a PCP) Disposition Disposition (needs filled in before D/C Order can be placed): Home, Self Care
--- NOTE | 2021-12-16 12:53 | PCM.DC.SUM ---
Providers Date of Admission: 12/13/21 Primary Care Physician: No Primary Care Phys Reason For Visit: RESP FAILURE, COPD EXAC, PNA Diagnosis Discharge Diagnosis (1) COPD (chronic obstructive pulmonary disease): Status: Chronic Code(s): J44.9 - Chronic obstructive pulmonary disease, unspecified Qualifiers: COPD type: COPD with acute exacerbation Qualified Code(s): J44.1 - Chronic obstructive pulmonary disease with (acute) exacerbation (2) Pneumonia of both lower lobes: Status: Acute Code(s): J18.9 - Pneumonia, unspecified organism Qualifiers: Pneumonia type: due to unspecified organism Qualified Code(s): J18.9 - Pneumonia, unspecified organism Medications at Discharge Home Medications NK 12/13/21 albuterol sulfate 2 puff INHALATION Q6H PRN #8.5 g 12/16/21 amoxicillin-pot clavulanate 1 tab PO Q12H #6 tab 12/16/21 prednisone 40 mg PO DAILY 5 Days #10 tab 12/16/21 Hospital Course Operations None Procedures None Summary of Care Provided Minutes Spent on Discharge: 35 Hospital Course: This is a 71-year-old female presents with 2-day history of worsening fatigue, malaise, productive cough and shortness of breath. Patient diagnosed with acute exacerbation of COPD as well as possible pneumonia. Patient underwent infectious work-up for pneumonia which came back not showing any acute process but there was some subtle changes on the chest x-rays and patient will continue with antibiotics upon discharge. For antibiotic while she is in the hospital she was on ceftriaxone as well as azithromycin, on discharge, patient will be on Augmentin. Saw the patient today for the first time myself and patient was very anxious kept on asking when she was going home. I told her I could not give her specific time and that she would assess in questioning and told her a few hours which she asked me again and continue to radiate a few hours. Then she jumped to conclusion that she is staying here till tomorrow but I clearly told her that she was being discharged today. Patient became very tearful. Patient did apologize afterwards but told her that we would need to get her oxygen set up. Patient will need to have oxygen with activity. Patient require 2 L of oxygen with activity but she is 92% on room air at rest and therefore will not require oxygen at rest. Patient did initially state that she was not going to use the oxygen. I told her if that is the case then there is no point in getting the insurance to cover it. She then stated that I will tell you that I will use it. This provider is uncertain if the patient will actually use the oxygen or not. Though I did tell her I do anticipate that she will be able to come off of oxygen hopefully in the next 1 to 2 weeks. Weight / BMI Weight Weight: 62.8 kg Body Mass Index (BMI) 25.6 ABG / Lab / Microbiology Data Result Diagrams: 12/16/21 05:26 12/16/21 05:26 Laboratory: Laboratory Results - last 24 hr 12/16/21 05:26: WBC 12.8 H, RBC 4.80, Hgb 12.9, Hct 42.2, MCV 87.9, MCH 26.9 L, MCHC 30.6 L, RDW Std Deviation 43.9, RDW Coeff of Mariama 13.4, Plt Count 343, MPV 10.1, Immature Gran % (Auto) 0.700, Neut % (Auto) 87.2 H, Lymph % (Auto) 9.4 L, [place] % (Auto) 2.6, Eos % (Auto) 0.0, Baso % (Auto) 0.1, Absolute Neuts (auto) 11.1 H, Absolute Lymphs (auto) 1.20, Nucleated RBC % 0 12/16/21 05:26: Sodium 140, Potassium 4.0, Chloride 104, Carbon Dioxide 33.0 H, Anion Gap 3 L, BUN 26 H, Creatinine 0.75, Estim Creat Clear Calc 38.94, Est GFR (MDRD) Af Amer 98, Est GFR (MDRD) Non-Af 81, BUN/Creatinine Ratio 34.5 H, Glucose 185 H, Calcium 8.9 Microbiology: Microbiology 12/13/21 21:55 Blood Culture (Wb) - Anticubital Right Blood Culture - Preliminary No growth in 48 hours. 12/13/21 21:22 Blood Culture (Wb) - Anticubital Left Blood Culture - Preliminary No growth in 48 hours. 12/14/21 08:25 Sputum, Expectorated/Coughed Gram Stain - Final 12/14/21 08:25 Sputum, Expectorated/Coughed Respiratory Culture - Final 12/14/21 06:45 Urine, Clean Catch Legionella Antigen - Final 12/14/21 06:45 Urine, Random Streptococcus pneumoniae Antigen (M - Final 12/13/21 23:35 Mucosa - Nasopharyngeal Respiratory Panel (PCR) - Final 12/13/21 21:22 Nasal Secretion SARS-CoV-2 & FLU Antigen (Rapid) - Final D/C Instructions Discharge Diet: No restrictions Call your doctor if you observe: Shortness of breath Meaningful Use Info Meaningful Use Diagnoses (Choose all that apply): None applicable Discharge Plan Admission Admit Date/Time: 12/13/21 22:45 Primary Reason for Your Visit: COPD exacerbation. Pneumonia Attending Provider: Ace Biggs Primary Care Provider: Care Physician,No Primary Consulting Providers: Freida Dior ; Dixon Avila Discharge Orders/Prescriptions Prescriptions: New prednisone 20 mg tablet 40 mg PO DAILY 5 Days Qty: 10 RF: 0 albuterol sulfate 90 mcg/actuation HFA aerosol inhaler 2 puff inhalation Q6H PRN (Reason: shortness of breath or wheezing) Qty: 8.5 RF: 0 amoxicillin-pot clavulanate 875-125 mg tablet 1 tab PO Q12H Qty: 6 RF: 0 No Action NK RF: 0 Referrals / Follow Up: [facility] [Provider Group] - Within 1 Month Care Physician,No Primary [Primary Care Provider] - Within 2 Weeks (establish with a PCP) Disposition Disposition (needs filled in before D/C Order can be placed): Home, Self Care Charges/Coding Visit Charges Inpatient E&M: 83165 Disch Hosp
--- NOTE | 2021-12-16 12:57 | CASEMGMT ---
RN MADINA updated that patient will need home oxygen at discharge. Script received. RN CM in to discuss with patient, list of DME provided and patient agreeable to [employer]. ROLA PAINTER called and faxed referral to [employer]. Portable tank provided to nurse to educate patient. Patient had no further questions or concerns at this time.
[2021-12-16 13:25] VITALS: BP 153/82; PULSE 95; RESP 18; TEMP 37.2; O2SAT 92
== END 2021-12-16 13:53 | disposition home or self-care (01) | DRG 190 ==
LOC: ED 22:10 → MS3 23:03
PROVIDERS: Internal Medicine; Admitting Provider Family Medicine; Emergency Provider Emergency Medicine
DX: J44.1 Chronic obstructive pulmonary disease with (acute) exacerbation (principal); J15.4 Pneumonia due to other streptococci; J44.0 Chronic obstructive pulmonary disease with (acute) lower respiratory infection; F17.210 Nicotine dependence, cigarettes, uncomplicated; Z20.822 Contact with and (suspected) exposure to COVID-19; R03.0 Elevated blood-pressure reading, without diagnosis of hypertension; R73.9 Hyperglycemia, unspecified
CPT/HCPCS: 36415; 36600; 71045; 80048; 80053; 82803; 83036; 83605; 83735; 85025; 87040; 87070; 87205; 87428; 87449; 87633; 93005; 94640; 99251; 99285; J7030; A4216; G0463

== ENCOUNTER 2023-07-15 17:48 | Emergency (ER) | payer OTHER, SELFPAY ==
[2023-07-15 17:49] VITALS: BP 198/72; PULSE 98; RESP 22; TEMP 37.1; O2SAT 86; BMI 28.5
[2023-07-15 17:57] VITALS: O2SAT 95
[2023-07-15] MEDS: predniSONE 20 MG Tablet 60 MG PO (18:37)
[2023-07-15 18:45] VITALS: PULSE 98; RESP 20
[2023-07-15] MEDS: Ipratropium/Albuterol Sulfate 3 ML AMPUL.NEB INHALATION (18:47)
[2023-07-15 18:52] LABS: Absolute Lymphocyte Count 1.65 X10^3/uL (0.83-4.51); Absolute Neutrophil Count 10.4 X10^3/uL (2.0-7.7); Basophil# 0.03 X10^3/uL; Basophil% 0.2 % (0-1); Eosinophil# 0.02 X10^3/uL; Eosinophils% 0.2 % (0-5); Hematocrit 46.6 % (37-47); Hemoglobin 14.4 g/dL (12.0-15.0); Lymphocyte # 1.65 X10^3/ul (0.83-4.51); Lymphocyte % 12.8 % (19-41); Mean Corp Hgb Conc 30.9 g/dL (32-36); Mean Corpuscular Hgb 27.3 pg (27.0-32.0); Mean Corpuscular Volume 88.4 fL (81-99); Mean Platelet Vol. 10.4 fl (6.2-12.0); Monocyte# 0.75 X10^3/uL; Monocyte% 5.8 % (0-10); NRBC Flagged by Analyzer 0 % (0-5); Neutrophil % 80.4 % (47-70); Platelet Count 209 K/mm3 (150-450); RBC Distribution Width CV 13.8 % (11.6-14.6); RBC Distribution Width SD 44.8 fl (35.1-43.9); Red Blood Count 5.27 M/mm3 (4.2-5.4); White Blood Count 12.9 K/mm3 (4.4-11.0)
[2023-07-15] MEDS: Albuterol 2.5 MG/3 ML VIAL.NEB. INHALATION ×3 (19:01)
[2023-07-15 19:06] LABS: Anion Gap 3 (5-15); BUN 10 mg/dL (7-18); BUN/Creat Ratio 15.3 RATIO (10-20); Calcium,Total 9.2 mg/dL (8.5-10.1); Chloride 103 mmol/L (98-107); Creatinine, Serum 0.66 mg/dL (0.55-1.02); EST Glomerular Filtration Rate 94 mL/min (>60); Est Glom Filt Rate - Afr Amer 114 mL/min (>60); Estimated Creatinine Clearance 38.37 ml/min; Glucose 138 mg/dL (74-106); Potassium 3.4 mmol/L (3.5-5.1); Sodium Level 137 mmol/L (136-145)
--- NOTE | 2023-07-15 19:20 | RAD_ITS ---
INDICATION: Productive cough, bilateral wheezing, rales right EXAMINATION/TECHNIQUE: X-RAY - XR Chest 2 Views COMPARISON: 12/13/2021 FINDINGS: LIFE-SUPPORT AND LINES: 1. None HEART AND VESSELS: The cardiac silhouette, pulmonary vasculature have normal appearance. No evidence of congestive failure. LUNGS AND PLEURAL SPACES: Subtle interstitial infiltrate lung bases with mild worsening particularly at the RIGHT lung base. No consolidation, no effusion. No pulmonary mass is noted. MEDIASTINUM AND HILAR REGIONS: No masses adenopathy noted. No areas of calcification. Visualized upper airway is normal in position. BONY ELEMENTS: No acute bony changes noted. RAD/Chest PA and Lateral IMPRESSION: 1. Persistent bibasilar interstitial prominence/infiltrate greater on the RIGHT than LEFT. There has been mild worsening at the RIGHT base. 2. No congestive failure. No consolidation Electronically Signed: Christos Salas MD at 19:42 EST ,
--- NOTE | 2023-07-15 20:03 | EX.ED.VIS.UR ---
HPI HPI - URI History of Present Illness Chief Complaint: Shortness of Breath Detail of Chief Complaint: Shortness of breath, cough, dyspnea, wheezing. As needed use of O2. Informant: patient and spouse/S.O. Onset/Context/Timing Onset: Days (Onset of illness approximately 5 to 7 days ago.) Context: Sudden Onset Timing: Continuous Quality: Dyspnea, [place] exertion, cough and wheezing. Current Severity: Mild Maximum Severity: Moderate Worsened by: - (Dyspnea on exertion); Not Worsened By Swallowing, Eating Solids or Drinking Liquids Relieved by: Not Relieved By Tylenol or NSAIDs Associated Symptoms Associated Symptoms: Positive for Nasal Congestion, Myalgias, Nausea, Shortness of Breath and Productive Cough; Negative for Headache, Sinus Pressure, Vomiting, Diarrhea, Chest Pain or Nonproductive cough Narrative Narrative: Patient is a 72-year-old woman with history of lung disease on oxygen as needed. She has been wearing oxygen for the last 3 days. She does have a cough. The cough is productive of colored sputum. She states she normally does not produce sputum. She denies fever or chills. She denies night sweats. She does endorse congestion and slight sore throat. She also endorses myalgias. She reports nausea without vomiting or diarrhea. She denies history of PE or DVT. She denies leg pain, swelling or discoloration. She states her voice is hoarse.'s been hoarse for the past 3 days. Prior similar symptoms: No Recent Illness/Hospitalization: No ROS ROS ED Constitutional Constitutional ED: Denies chills, fever(s) or sweats Eyes Eyes: Denies blurry vision or change in vision ENT ENT ED: Reports rhinorrhea; Denies ear pain Cardiovascular Cardiovascular: Denies chest pain, orthopnea, palpitations or paroxysmal nocturnal dyspnea Respiratory/Chest Respiratory/Chest: Reports cough, dyspnea, dyspnea on exertion and sputum; Denies orthopnea or paroxysmal nocturnal dyspnea Gastrointestinal Gastrointestinal: Denies abdominal pain, nausea or vomiting Genitourinary Genitourinary ED: Denies dysuria, hematuria or urinary frequency Musculoskeletal Musculoskeletal: Reports arthralgias and myalgias; Denies back pain or neck pain Integumentary Denies rash Neurologic Neurologic: Reports weakness; Denies headache(s) or paresthesias Psychiatric Psychiatric: Denies anxiety Endocrine Endocrinology: Denies cold intolerance or heat intolerance Hematologic/Lymphatic Hematologic/Lymphatic: Denies easy bleeding or easy bruising PFSH PFSH Medical History COPD (chronic obstructive pulmonary disease) COPD (chronic obstructive pulmonary disease) Smoker Home Medications NK 12/13/21 [History Last Taken Unknown] albuterol sulfate 90 mcg/actuation aerosol inhaler 2 puff inhalation Q6H PRN shortness of breath or wheezing #8.5 grams 12/16/21 [Rx Last Taken Unknown] amoxicillin 875 mg-potassium clavulanate 125 mg tablet 1 tab PO Q12H #6 tabs 12/16/21 [Rx Last Taken Unknown] prednisone 20 mg tablet 40 mg (2 x 20 mg) PO DAILY 5 days #10 tabs 12/16/21 [Rx Last Taken Unknown] albuterol sulfate 2.5 mg/3 mL (0.083 %) solution for nebulization 2.5 mg (3 mL) inhalation Q4H PRN #25 vials 07/15/23 [Rx Last Taken Unknown] doxycycline monohydrate 100 mg capsule 100 mg PO BID #10 CAPSULES 07/15/23 [Rx Last Taken Unknown] prednisone 20 mg tablet 60 mg (3 x 20 mg) PO DAILY #12 TABLETS 07/15/23 [Rx Last Taken Unknown] Allergy/AdvReac Type Severity Reaction Status Date / Time nitrofurantoin Allergy PT UNSURE Verified 07/15/23 17:49 [From Macrodantin] OF REACTION Family History Mother Heart disease Dementia Father Lung cancer Underlying tobacco use history concurrently. Surgical History History of bilateral tubal ligation Hx of hernia repair Social History household members: spouse Smoking Status: Heavy Smoker (>10/day) alcohol intake: never substance use type: does not use EXAM Physical Exam Const Vital Signs: 07/15/23 17:49 07/15/23 17:57 07/15/23 18:00 Temperature 98.7 F Temperature Source Oral Pulse Rate 98 Respiratory Rate 22 H Respiratory Effort Short of Breath Respiratory Pattern Tachypnea Blood Pressure 198/72 H Blood Pressure Mean 114 Pulse Ox 86 95 Oxygen Delivery Method Room Air Nasal Cannula Nasal Cannula Oxygen Flow Rate (L/min) 2 07/15/23 18:45 Temperature Temperature Source Pulse Rate 98 Respiratory Rate 20 H Respiratory Effort Respiratory Pattern Blood Pressure Blood Pressure Mean Pulse Ox Oxygen Delivery Method Oxygen Flow Rate (L/min) Positive well nourished, well developed and obese Constitutional Narrative: Patient's voice is hoarse. She was hypoxic on room air. She is not hypoxic on oxygen. General Appearance ED: well developed and NAD; Negative for cyanotic, diaphoretic or pallor Nutritional Appearance: obese HEENT Reports moist mucous membranes normocephalic and atraumatic Face and Sinus: Negative for sinus tenderness Throat: posterior oropharynx normal Eyes PERRL and EOMs intact bilaterally Neck no lymphadenopathy, supple and no meningeal signs Neck Narrative: Trachea is midline. There is no inspiratory expiratory stridor. Resp normal respiratory effort and No clear to auscultation bilaterally Auscultation: rales bilateral base and wheezes expiratory wheezes, scattered wheezes and throughout Cardio S1 normal heart sound, S2 normal heart sound and no murmurs Rate: regular rate GI non-tender, non-distended and no masses Auscultation: normoactive bowel sounds Palpation: soft Back/Spine no CVA tenderness Extremity normal to inspection and full ROM Extremity Narrative: There is no clubbing. General Extremety ED: Negative for cyanosis or tenderness General Extremity: Negative for cyanosis Neuro oriented x3, CN's II-XII intact bilaterally and no sensory deficits noted Sensorium / Orientation: alert Motor Exam: strength 5/5 throughout Psych mental status grossly normal Skin General Skin Exam: Negative for jaundice or pallor Lesions: no lesions Rashes: no rashes MDM MDM MDM Narrative Medical decision making narrative: Differential diagnosis is pneumonia versus viral upper respiratory infection. With patient complaint of myalgias arthralgias cough concerned she may have influenza. Respiratory panel for RSV, influenza COVID were ordered. She has been with her grandkids as past holiday and many of them had viral-like symptoms. Chest x-rays obtained to assess for pneumonia. CBC was obtained to assess white count as well as rule out anemia. BMP to assess renal function and electrolytes. Also to assess for endorgan dysfunction in the event that the chest x-ray reveals evidence of pneumonia. Lab Data Attestation: I reviewed the patient's lab results. Lab results narrative: White count is slightly elevated with shift. There is no bandemia. H&H is normal. Basic metabolic panel reveals a glucose of 138 with a normal CO2 and anion gap. Labs: Laboratory Results - last 24 hr 07/15/23 18:17 WBC 12.9 H RBC 5.27 Hgb 14.4 Hct 46.6 MCV 88.4 MCH 27.3 MCHC 30.9 L RDW Std Deviation 44.8 H RDW Coeff of Mariama 13.8 Plt Count 209 MPV 10.4 Immature Gran % (Auto) 0.600 Neut % (Auto) 80.4 H Lymph % (Auto) 12.8 L [place] % (Auto) 5.8 Eos % (Auto) 0.2 Baso % (Auto) 0.2 Absolute Neuts (auto) 10.4 H Absolute Lymphs (auto) 1.65 Nucleated RBC % 0 Sodium 137 Potassium 3.4 L Chloride 103 Carbon Dioxide 31.0 Anion Gap 3 L BUN 10 Creatinine 0.66 Estim Creat Clear Calc 38.37 Est GFR (MDRD) Af Amer 114 Est GFR (MDRD) Non-Af 94 BUN/Creatinine Ratio 15.3 Glucose 138 H Calcium 9.2 Radiography Chest X-Ray - ED: Read by ED Physician (Patient has abnormal interstitial changes noted that are greater on the right than left. This was noted on prior chest x-ray 1 year ago. There is no cardiomegaly. There is no cephalization or curly B-lines noted. There is no evidence of pneumothorax. Osseous structures are unremarkable. This w) Diagnostic Testing: Clinical Impression(s) from Imaging Studies Chest X-Ray 07/15/23 19:20 IMPRESSION: 1. Persistent bibasilar interstitial prominence/infiltrate greater on the RIGHT than LEFT. There has been mild worsening at the RIGHT base. 2. No congestive failure. No consolidation Electronically Signed: Christos Salas MD at 19:42 EST , Treatment and Re-Evaluation Narrative: Patient was treated with albuterol and DuoNeb as well as p.o. prednisone. Patient has a nebulizer at home. She states she needs more solution. She also was given a prescription for prednisone and doxycycline. Discharge Plan Triage Chief Complaint: Shortness of Breath ED Provider: Angel León Dx/Rx/DC Orders Clinical Impression: Type B influenza, Acute bronchospasm, Hypoxia, Acute exacerbation of chronic obstructive pulmonary disease Instructions: ED COPD Flare, ED Influenza (Adult) Prescriptions: New prednisone 20 mg tablet 60 mg PO DAILY Qty: 12 0RF doxycycline monohydrate 100 mg capsule 100 mg PO BID Qty: 10 0RF albuterol sulfate 2.5 mg /3 mL (0.083 %) solution for nebulization 2.5 mg inhalation Q4H PRN Qty: 25 0RF Rx Instructions: Use q4 hours and PRN for wheezing No Action NK prednisone 20 mg tablet 40 mg PO DAILY 5 Days Qty: 10 0RF albuterol sulfate 90 mcg/actuation HFA aerosol inhaler 2 puff inhalation Q6H PRN (Reason: shortness of breath or wheezing) Qty: 8.5 0RF amoxicillin-pot clavulanate 875-125 mg tablet 1 tab PO Q12H Qty: 6 0RF Primary Care Provider: Care Physician,No Primary Referrals: Salvatore Booker MD [Med Staff - Active Staff] - 5-7 Days Care Physician,No Primary [Primary Care Provider] - Disposition Disposition: Home, Self Care
[2023-07-15 20:27] VITALS: RESP 22
--- OUTSIDE RECORDS SUMMARY | 2023-07-15 21:51 | XMS RPT_ITS | CCD ---
Author Name Unknown Address [address] [place] [address] Organization [facility] Results Test Name Value Interpretation Reference Range Facil ity Summary Purpose Family History No Family History Records Found Advance Directives No Advanced Directives Records Found Additional Source Comments INFORMATION SOURCE (unrecogn ized section and content) FOR RECORDS PERTAINING TO PATIENTS WHO ARE OR HAVE BEEN ENROLLED IN A CHEMICAL DEPENDENCY/SUBSTANCEABUSE PROGRAM, SOME INFORMATION MAY BE OMITTED. This clinical summary was aggregated from multiple sources. Caution should be exercised in using it in the provision of clinical care. This summary normalizes information from multiple sources, and as a consequence, information in this document may materially change the coding, format and clinical context of patient data. In addition, data may be omitted in some cases. CLINICAL DECISIONS SHOULD BE BASED ON THE PRIMARY CLINICAL RECORDS. [facility]. provides no warranty or guarantee of the accuracy or completeness of information in this document.
== END 2023-07-15 20:28 | disposition home or self-care (01) ==
PROVIDERS: Emergency Provider Emergency Medicine; Visit Provider Emergency Medicine
DX: J10.1 Influenza due to other identified influenza virus with other respiratory manifestations (principal); J44.1 Chronic obstructive pulmonary disease with (acute) exacerbation; F17.200 Nicotine dependence, unspecified, uncomplicated; J98.01 Acute bronchospasm; R09.02 Hypoxemia; Z98.51 Tubal ligation status
CPT/HCPCS: 71046; 80048; 85025; 87631; 94640; 99284

== ENCOUNTER 2023-08-19 13:04 | Inpatient (IN) | payer OTHER, MEDICARE, SELFPAY ==
[2023-08-19] VITALS (12 sets, daily range): BP systolic 97–188; BP diastolic 56–114; PULSE 90–110; RESP 16–27; TEMP 36–36.9; O2SAT 87–97; BMI 26.9; BMI 23.9
--- NOTE | 2023-08-19 13:29 | RAD_ITS ---
INDICATION: Shortness of breath EXAMINATION/TECHNIQUE: X-RAY - XR Chest 1 View COMPARISON: Prior study dated: 07/15/2023 FINDINGS: LINES/DEVICES: None. LUNGS: No consolidation, edema or effusion. No pneumothorax. MEDIASTINUM AND CARDIOVASCULAR STRUCTURES: Cardiac silhouette not enlarged. Central airways and mediastinal contour are unremarkable. BONES AND SOFT TISSUES: Unchanged. RAD/Chest 1 View (Portable) IMPRESSION: No radiographic evidence of acute cardiopulmonary disease. Electronically Signed: Jeffery Boyd MD at 13:47 EST ,
[2023-08-19 13:35] LABS: Absolute Neutrophil Count 18.4 X10^3/uL (2.0-7.7); Basophil# 0.05 X10^3/uL; Basophil% 0.2 % (0-1); Hematocrit 46.9 % (37-47); Hemoglobin 14.6 g/dL (12.0-15.0); Lymphocyte % 6.2 % (19-41); Mean Corp Hgb Conc 31.1 g/dL (32-36); Mean Corpuscular Hgb 26.6 pg (27.0-32.0); Mean Corpuscular Volume 85.6 fL (81-99); Mean Platelet Vol. 10.1 fl (6.2-12.0); Monocyte# 1.25 X10^3/uL; Monocyte% 5.9 % (0-10); NRBC Flagged by Analyzer 0 % (0-5); Neutrophil # 18.42 X10^3/uL (2.7-7.7); Neutrophil % 87.2 % (47-70); Platelet Count 224 K/mm3 (150-450); RBC Distribution Width CV 14.1 % (11.6-14.6); RBC Distribution Width SD 44.2 fl (35.1-43.9); Red Blood Count 5.48 M/mm3 (4.2-5.4); White Blood Count 21.1 K/mm3 (4.4-11.0)
[2023-08-19] MEDS: MethylPREDNISolone 125 MG/2 ML Vial IV (13:36)
[2023-08-19 13:39] LABS: International Normalized Ratio 1.1; Prothrombin Time (Protime)PT. 13.8 SECONDS (11.7-14.9)
[2023-08-19 13:40] LABS: Partial Thromboplast Time 29.6 Seconds (24.1-36.2)
[2023-08-19] MEDS: Albuterol 2.5 MG/3 ML VIAL.NEB. INHALATION ×3 (13:41)
[2023-08-19 13:57] LABS: ALB/GLOB Ratio 0.8 RATIO (0.9-2.4); AST(SGOT) 14 U/L (15-37); Alanine Aminotransfer ALT/SGPT 16 U/L (13-56); Albumin, Serum 3.2 g/dL (3.2-5.0); Alkaline Phosphatase 99 U/L (45-117); Anion Gap 5 (5-15); BUN 14 mg/dL (7-18); BUN/Creat Ratio 13.6 RATIO (10-20); Calcium,Total 9.2 mg/dL (8.5-10.1); Chloride 98 mmol/L (98-107); Creatinine, Serum 1.03 mg/dL (0.55-1.02); EST Glomerular Filtration Rate 56 mL/min (>60); Est Glom Filt Rate - Afr Amer 68 mL/min (>60); Estimated Creatinine Clearance 42.52 ml/min; Globulin 3.9 g/dL (2.2-4.2); Glucose 185 mg/dL (74-106); Potassium 3.8 mmol/L (3.5-5.1); Protein, Total 7.1 g/dL (6.4-8.2); Sodium Level 131 mmol/L (136-145); Troponin-I HS 12 pg/mL (3.0-54.0)
[2023-08-19 13:58] LABS: Lactic Acid 1.5 mmol/L (0.4-1.9)
--- NOTE | 2023-08-19 14:01 | ED.RN ---
RN talked with pt daughter, Alis, with pt permission, informed RN of past medical history. Daughter states pt is poor historian and does not seek medical care for anything. Daughter informed with plan of care.
[2023-08-19 14:17] LABS: Blood Gas Specimen Type VEN; O2 Delivery Device Not entered; SITE Not entered; VBG BASE EXCESS 1 mmol/L (-1.0-3.5); VBG Bicarbonate 25 mmol/L (22-26); VBG PO2 54 mmHg (25-40); VBG SO2 88 % (50-70); VBG TCO2 26 mmol/L (23-33); VBG pCO2 38.3 mmHg (41-51); VBG pH 7.43 (7.32-7.42)
[2023-08-19 15:11] LABS: Mucous, Urine 0 SEEN /hpf (<or=2+); Squamous Epithelial Cells - UA 0 SEEN /hpf (5-10)
--- NOTE | 2023-08-19 15:17 | EX.ED.DYSGE1 ---
HPI <Elizabeth Kearns RN - Last Filed: 08/19/23 16:04> History of Present Illness Chief Complaint: Shortness of Breath Onset/Context/Timing Onset: Days (2) Context: Sudden Onset Timing: Continuous Current Severity: Moderate Maximum Severity: Moderate Associated Symptoms Associated Symptoms: Increase shortness of breath Narrative Narrative: Patient to ED for nausea, vomiting, and diarrhea x 2 days. Patient also with increased shortness of breath. Patient reports unable to take p.o. x 2 days. O2 sats 87% on room air upon arrival to ED. Patient dusky with cyanosis noted to lips and fingers. Prior similar symptoms: Yes Recent Illness/Hospitalization: No PFSH <Elizabeth Kearns RN - Last Filed: 08/19/23 16:04> PFSH Medical History COPD (chronic obstructive pulmonary disease) COPD (chronic obstructive pulmonary disease) Smoker Home Medications [id number]-qacrjpnabvfju-[id number] 250 mg-250 mg-65 mg tablet (Excedrin Migraine) 1 tab PO DAILY PRN headache 08/19/23 [History Last Taken 08/18/23] ibuprofen 200 mg capsule 600 mg PO TID PRN pain 08/19/23 [History Last Taken 08/18/23] Allergy/AdvReac Type Severity Reaction Status Date / Time nitrofurantoin Allergy PT UNSURE Verified 08/19/23 13:10 [From Macrodantin] OF REACTION Family History Mother Heart disease Dementia Father Lung cancer Underlying tobacco use history concurrently. Surgical History History of bilateral tubal ligation Hx of hernia repair Social History household members: spouse Smoking Status: Heavy Smoker (>10/day) alcohol intake: never substance use type: does not use ROS <Elizabeth Kearns RN - Last Filed: 08/19/23 16:04> ROS ED Constitutional Constitutional ED: Denies chills, fever(s), sweats or weight loss ENT ENT ED: Denies ear pain, rhinorrhea or sore throat Cardiovascular Cardiovascular: Denies chest pain Respiratory/Chest Respiratory/Chest: Reports cough and dyspnea Gastrointestinal Gastrointestinal: Reports diarrhea, nausea and vomiting; Denies abdominal pain Genitourinary Genitourinary ED: Denies dysuria or hematuria Musculoskeletal Musculoskeletal: Denies arthralgias or myalgias Integumentary Denies rash Neurologic Neurologic: Reports weakness; Denies headache(s) Psychiatric Psychiatric: Denies anxiety EXAM <Elizabeth Kearns RN - Last Filed: 08/19/23 16:04> Physical Exam Const Vital Signs: 08/19/23 13:05 08/19/23 13:08 08/19/23 13:08 Temperature 98.4 F 98.4 F 98.4 F Temperature Source Oral Oral Oral Pulse Rate 107 H 101 H 103 H Respiratory Rate 20 H 24 H 24 H Respiratory Effort Respiratory Depth Respiratory Pattern Blood Pressure 188/74 H 188/74 H 188/74 H Blood Pressure Mean 112 112 112 Pulse Ox 87 93 93 Oxygen Delivery Method Room Air Nasal Cannula Nasal Cannula Oxygen Flow Rate (L/min) 3 3 08/19/23 13:12 08/19/23 13:31 08/19/23 13:44 Temperature Temperature Source Pulse Rate 110 H Respiratory Rate 24 H Respiratory Effort Short of Breath Respiratory Depth Shallow Respiratory Pattern Tachypnea Tachypnea Blood Pressure Blood Pressure Mean Pulse Ox 92 Oxygen Delivery Method Nasal Cannula Room Air Oxygen Flow Rate (L/min) 3 08/19/23 13:44 08/19/23 14:01 Temperature Temperature Source Pulse Rate 106 H Respiratory Rate 27 H Respiratory Effort Respiratory Depth Respiratory Pattern Blood Pressure 149/71 H Blood Pressure Mean 97 Pulse Ox 94 93 Oxygen Delivery Method Nasal Cannula Nasal Cannula Oxygen Flow Rate (L/min) 3 3 Positive well nourished and well developed Constitutional Narrative: Cyanosis noted to lips and fingers General Appearance ED: well developed and cyanotic HEENT Reports dry mucous membranes Mouth ED: Yes dry mucous membranes Mouth: dry mucous membranes Eyes PERRL Neck no lymphadenopathy Chest Wall inspection of chest normal and palpation of chest normal Resp normal respiratory effort Resp Narrative: Lungs diminished throughout. Auscultation: diminished lung sounds Cardio regular rhythm, S1 normal heart sound and S2 normal heart sound Rate: tachycardic GI normal to inspection, nondistended, normoactive bowel sounds and non-tender Palpation: soft Back/Spine no CVA tenderness Extremity Extremity Narrative: Cyanosis to fingers General Extremety ED: Negative for edema General Extremity: Negative for edema Neuro oriented x3 Sensorium / Orientation: alert Motor Exam: general weakness Psych mental status grossly normal Skin no rashes or lesions noted <Dr. Angel León MD - Last Filed: 08/19/23 17:04> Physical Exam Const Vital Signs: 08/19/23 13:05 08/19/23 13:08 08/19/23 13:08 Temperature 98.4 F 98.4 F 98.4 F Temperature Source Oral Oral Oral Pulse Rate 107 H 101 H 103 H Respiratory Rate 20 H 24 H 24 H Respiratory Effort Respiratory Depth Respiratory Pattern Blood Pressure 188/74 H 188/74 H 188/74 H Blood Pressure Mean 112 112 112 Pulse Ox 87 93 93 Oxygen Delivery Method Room Air Nasal Cannula Nasal Cannula Oxygen Flow Rate (L/min) 3 3 08/19/23 13:12 08/19/23 13:31 08/19/23 13:44 Temperature Temperature Source Pulse Rate 110 H Respiratory Rate 24 H Respiratory Effort Short of Breath Respiratory Depth Shallow Respiratory Pattern Tachypnea Tachypnea Blood Pressure Blood Pressure Mean Pulse Ox 92 Oxygen Delivery Method Nasal Cannula Room Air Oxygen Flow Rate (L/min) 3 08/19/23 13:44 08/19/23 14:01 Temperature Temperature Source Pulse Rate 106 H Respiratory Rate 27 H Respiratory Effort Respiratory Depth Respiratory Pattern Blood Pressure 149/71 H Blood Pressure Mean 97 Pulse Ox 94 93 Oxygen Delivery Method Nasal Cannula Nasal Cannula Oxygen Flow Rate (L/min) 3 3 MDM <Elizabeth Kearns RN - Last Filed: 08/19/23 16:04> MDM MDM Narrative Medical decision making narrative: Patient placed on court recording monitor. IV line initiated. Labwork obtained to evaluate for leukocytosis, anemia, and electrolyte derangement. Chest x-ray obtained to evaluate for acute lung pathology, cardiac size, or mediastinal abnormality. EKG obtained to evaluate for cardiac arrhythmia/ischemia. History & Record Review Discussion w/independent historian: Patient and Family Lab Data Attestation: I reviewed the patient's lab results. Labs: Laboratory Results - last 24 hr 08/19/23 08/19/23 13:17 15:01 WBC 21.1 H RBC 5.48 H Hgb 14.6 Hct 46.9 MCV 85.6 MCH 26.6 L MCHC 31.1 L RDW Std Deviation 44.2 H RDW Coeff of Mariama 14.1 Plt Count 224 MPV 10.1 Immature Gran % (Auto) 0.500 Neut % (Auto) 87.2 H Lymph % (Auto) 6.2 L [place] % (Auto) 5.9 Eos % (Auto) 0.0 Baso % (Auto) 0.2 Absolute Neuts (auto) 18.4 H Absolute Lymphs (auto) 1.30 Nucleated RBC % 0 PT 13.8 INR 1.1 APTT 29.6 Sodium 131 L Potassium 3.8 Chloride 98 Carbon Dioxide 28.0 Anion Gap 5 BUN 14 Creatinine 1.03 H Estim Creat Clear Calc 42.52 Est GFR (MDRD) Af Amer 68 Est GFR (MDRD) Non-Af 56 L BUN/Creatinine Ratio 13.6 Glucose 185 H Lactic Acid 1.5 Calcium 9.2 Total Bilirubin 1.30 H AST 14 L ALT 16 Alkaline Phosphatase 99 Troponin I High Sens 12 Total Protein 7.1 Albumin 3.2 Globulin 3.9 Albumin/Globulin Ratio 0.8 L Urine Color Yellow Urine Clarity Cloudy Urine pH 6.0 Ur Specific [place] 1.015 Urine Protein 100 H Urine Glucose (UA) Normal Urine Ketones 15 H Urine Occult Blood 150 H Urine Nitrite Negative Urine Bilirubin Negative Urine Urobilinogen 1 H Ur Leukocyte Esterase 500 H Urine RBC 10-25 SEEN Urine WBC >100 SEEN Ur Squamous Epith Cells 0 SEEN Urine Bacteria 4+ Urine Mucus 0 SEEN ABG Data ABG results: ABG 08/19/23 14:13 Specimen Type GENA Sample Site Not entered VBG pH 7.43 H VBG pO2 54 H VBG HCO3 25 VBG Total CO2 26 VBG O2 Sat (Calc) 88 H VBG Base Excess 1 POC Mix VBG pCO2 Pt Tmp 38.3 L O2 Delivery Device Not entered Radiography Chest X-Ray - ED: 1 View Diagnostic Testing: Clinical Impression(s) from Imaging Studies Chest X-Ray 08/19/23 13:29 IMPRESSION: No radiographic evidence of acute cardiopulmonary disease. Electronically Signed: Jeffery Boyd MD at 13:47 EST , EKG Initial EKG: Attestation: I personally reviewed and interpreted this EKG as follows: Interpretation: Sinus Rhythm Comments: Reviewed with Dr. León. Prior EKG tracings: not available for review Differential Diagnosis Chest pain/SOB: pulmonary embolism, ACS and pneumonia Abdominal Pain: Bowel obstruction Management Discussion w/another healthcare provider: Other (Dr León, ED provider) Treatment and Re-Evaluation :: CBC showed an elevated white blood cell count of 21.1 with neutrophils 87.2 for which patient will receive doxycycline p.o. Venous blood gas revealed a pH 7.43 O2 of 54 and CO2 of 38.3 all within normal limits. Chemistries revealed slightly decreased sodium at 131. Glucose elevated at 185. Total bilirubin elevated at 1.3. Troponin negative. Urine positive for protein of 100, ketones 15, occult blood. Patient to be admitted for COPD exacerbation. plan discussed with patient. Patient agreeable <Dr. Angel León MD - Last Filed: 08/19/23 17:04> [facility] MDM Narrative Medical decision making narrative: Patient placed on court recording monitor. IV line initiated. Labwork obtained to evaluate for leukocytosis, anemia, and electrolyte derangement. Chest x-ray obtained to evaluate for acute lung pathology, cardiac size, or mediastinal abnormality. EKG obtained to evaluate for cardiac arrhythmia/ischemia. I have personally performed a face to face assessment of the patient and have reviewed the NIRMALA Note. I performed a substantive portion of the visit including all aspects of the following. My bo findings include: History is remarkable for nausea, vomiting diarrhea and respiratory symptoms. Patient does have a cough. Her cough is slightly productive. She denies hemoptysis. Denies pleuritic chest pain. She denies rhinorrhea, congestion postnasal drainage. She denies auditory symptoms. She denies cardiac symptoms. Denies orthopnea or PND. She denies symptoms. She does report nausea, vomit diarrhea. Denies hematemesis or melena. She denies hematochezia. Exam is patient is in respiratory distress with use of accessory muscles. She is cyanotic. She is on oxygen which she is chronically on. She initially said she is not on oxygen. This raises concern for hypercapnia. HEENT exam is unremarkable. Patient has minimal air movement. With forced expiration there are is minimal high-pitched wheezing noted throughout. Heart is rapid and regular. There is no murmur, gallop or rub abdomen soft nontender. Patient has minimal edema of the lower extremities. Cranials 2 through 12 intact. Motor or sensory intact. Medical Decision Making patient may have a viral infection and with diarrhea respiratory symptoms this may represent COVID. Will obtain rapid antigen. Chest x-ray to rule out pneumonia. This may also be exacerbation of COPD from 1 of numerous viral infections. CBC was obtained to assess white count as well as rule out anemia. Blood work is as far as [facility]ass metabolic panel and lactate were obtained to assess for endorgan dysfunction. Other additions or changes: [None] Lab Data Lab results narrative: White count is elevated with shift. Basic metabolic panel is slight elevation of creatinine of 1.03. Total bili slightly up to 1.30. Creatinine is elevated for patient. Urinalysis reveals evidence of urinary tract infection. This was not back at the time of admission. She will require treatment. Labs: Laboratory Results - last 24 hr 08/19/23 08/19/23 13:17 15:01 WBC 21.1 H RBC 5.48 H Hgb 14.6 Hct 46.9 MCV 85.6 MCH 26.6 L MCHC 31.1 L RDW Std Deviation 44.2 H RDW Coeff of Mariama 14.1 Plt Count 224 MPV 10.1 Immature Gran % (Auto) 0.500 Neut % (Auto) 87.2 H Lymph % (Auto) 6.2 L [place] % (Auto) 5.9 Eos % (Auto) 0.0 Baso % (Auto) 0.2 Absolute Neuts (auto) 18.4 H Absolute Lymphs (auto) 1.30 Nucleated RBC % 0 PT 13.8 INR 1.1 APTT 29.6 Sodium 131 L Potassium 3.8 Chloride 98 Carbon Dioxide 28.0 Anion Gap 5 BUN 14 Creatinine 1.03 H Estim Creat Clear Calc 42.52 Est GFR (MDRD) Af Amer 68 Est GFR (MDRD) Non-Af 56 L BUN/Creatinine Ratio 13.6 Glucose 185 H Lactic Acid 1.5 Calcium 9.2 Total Bilirubin 1.30 H AST 14 L ALT 16 Alkaline Phosphatase 99 Troponin I High Sens 12 Total Protein 7.1 Albumin 3.2 Globulin 3.9 Albumin/Globulin Ratio 0.8 L Urine Color Yellow Urine Clarity Cloudy Urine pH 6.0 Ur Specific [place] 1.015 Urine Protein 100 H Urine Glucose (UA) Normal Urine Ketones 15 H Urine Occult Blood 150 H Urine Nitrite Negative Urine Bilirubin Negative Urine Urobilinogen 1 H Ur Leukocyte Esterase 500 H Urine RBC 10-25 SEEN Urine WBC >100 SEEN Ur Squamous Epith Cells 0 SEEN Urine Bacteria 4+ Urine Mucus 0 SEEN ABG Data ABG results: ABG 08/19/23 14:13 Specimen Type GENA Sample Site Not entered VBG pH 7.43 H VBG pO2 54 H VBG HCO3 25 VBG Total CO2 26 VBG O2 Sat (Calc) 88 H VBG Base Excess 1 POC Mix VBG pCO2 Pt Tmp 38.3 L O2 Delivery Device Not entered Radiography Diagnostic Testing: Clinical Impression(s) from Imaging Studies Chest X-Ray 08/19/23 13:29 IMPRESSION: No radiographic evidence of acute cardiopulmonary disease. Electronically Signed: Jeffery Boyd MD at 13:47 EST , Management Discussion w/another healthcare provider: Hospitalist (Informed hospitalist that she was here for GI symptoms and respiratory symptoms. She was told she was given doxycycline for exacerbation COPD. Her white count is probably due to her UTI and will need antibiotics for UTI.) Discharge Plan Dx/Rx/DC Orders Clinical Impression: Diarrhea, Acute exacerbation of chronic obstructive pulmonary disease (COPD), Nausea & vomiting, Urinary tract infection, Acute and chronic respiratory failure with hypoxia, SIRS (systemic inflammatory response syndrome) Disposition Disposition: Acute Care Hospital [facility] Discharge Date/Time: 08/19/23 16:06
[2023-08-19 15:21] LABS: Color, Urine Yellow (Yellow); Glucose, Dipstick Normal (Normal); Ketone-Dipstick 15 mg/dl (Negative); Leukocyte Esterase-Dipstick 500 /ul (Negative); Nitrite-Dipstick Negative (Negative); Occult Blood-Urine 150 /ul (Negative); Protein-Dipstick 100 mg/dl (Negative); Specific Gravity, Urine 1.015 (1.002-1.030); Urine Bilirubin Dipstick Negative (Negative); Urine Clarity Cloudy (Clear); Urine Urobilinogen 1 mg/dl (Normal)
[2023-08-19 15:31] LABS: Bacteria 4+ /hpf (None Seen); White Blood Cells >100 SEEN /hpf (0-5)
[2023-08-19 15:32] LABS: Red Blood Cells-Urine 10-25 SEEN /hpf (0-5)
--- NOTE | 2023-08-19 15:39 | HP.PCM.HOS_ITS ---
HPI - General General Date of Admission: 08/19/23 Date of Service: 08/19/23 Chief Complaint: SOB, n/d HPI Narrative SHILA NICOLE, is a 72-year-old female history of COPD and tobacco use presented to [facility] ED 08/19/2023 for shortness of breath, nausea, vomiting, diarrhea for several days. Patient was 86% on room air for squad. Patient found to have white blood cell count of 21.1, creatinine 1.03 with baseline 0.6-0.7 and sodium of 131. Additionally 87% on room air on arrival with sats in low 90s on 3 L of O2 and patient tachypneic. Chest x-ray no evidence of acute disease. Patient given albuterol, Doxy, Methylpred and hospitalist contacted for admission for COPD exacerbation as patient still tachypneic and tachycardic with increased respiratory distress. Patient seen in ED with at bedside, patient very uncooperative and upset about having answer any questions, ultimately sounds as though patient had some nausea and diarrhea over the weekend and on Thursday also began to have some shortness of annika ath with cough. Does endorse some pain with urination and increased frequency as well as chills and has been concerned she had a UTI and thinks that is why she has had the nausea and diarrhea. Patient denies any swelling or other complaints. PFSH Medical History COPD (chronic obstructive pulmonary disease) COPD (chronic obstructive pulmonary disease) Smoker Home Medications gdwqcpk-abkeffkpzihwj-wefjfwur 250 mg-250 mg-65 mg tablet (Excedrin Migraine) 1 tab PO DAILY PRN headache 08/19/23 [History Last Taken 08/18/23] ibuprofen 200 mg capsule 600 mg PO TID PRN pain 08/19/23 [History Last Taken 08/18/23] Allergy/AdvReac Type Severity Reaction Status Date / Time nitrofurantoin Allergy PT UNSURE Verified 08/19/23 13:10 [From Macrodantin] OF REACTION Family History Mother Heart disease Dementia Father Lung cancer Underlying tobacco use history concurrently. Surgical History History of bilateral tubal ligation Hx of hernia repair Social History household members: spouse Smoking Status: Heavy Smoker (>10/day) alcohol intake: never substance use type: does not use ROS ROS Narrative General: Reports some chills HENT: Denies headache, denies stuffy nose, denies sore throat EYES: Denies changes in vision Resp: Has some cough and increased shortness of breath Cardiac: Denies chest pain GI: Denies abdominal pain, nausea with no vomiting, diarrhea with no blood : Pain on urination and urinary frequency Extremity: Denies swelling MSK: Denies weakness Neuro: Denies any numbness/tingling Heme: Denies any bleeding or bruising Skin: Denies rashes Psychiatric: No complaints voiced Vital Signs Vital Signs Vital Signs: 08/19/23 13:05 08/19/23 13:08 08/19/23 13:08 Temperature 98.4 F 98.4 F 98.4 F Temperature Source Oral Oral Oral Pulse Rate 107 H 101 H 103 H Respiratory Rate 20 H 24 H 24 H Respiratory Effort Respiratory Depth Respiratory Pattern Blood Pressure 188/74 H 188/74 H 188/74 H Blood Pressure Mean 112 112 112 Pulse Ox 87 93 93 Oxygen Delivery Method Room Air Nasal Cannula Nasal Cannula Oxygen Flow Rate (L/min) 3 3 08/19/23 13:12 08/19/23 13:31 08/19/23 13:44 Temperature Temperature Source Pulse Rate 110 H Respiratory Rate 24 H Respiratory Effort Short of Breath Respiratory Depth Shallow Respiratory Pattern Tachypnea Tachypnea Blood Pressure Blood Pressure Mean Pulse Ox 92 Oxygen Delivery Method Nasal Cannula Room Air Oxygen Flow Rate (L/min) 3 08/19/23 13:44 08/19/23 14:01 Temperature Temperature Source Pulse Rate 106 H Respiratory Rate 27 H Respiratory Effort Respiratory Depth Respiratory Pattern Blood Pressure 149/71 H Blood Pressure Mean 97 Pulse Ox 94 93 Oxygen Delivery Method Nasal Cannula Nasal Cannula Oxygen Flow Rate (L/min) 3 3 Weight Weight: 64.7 kg Body Mass Index (BMI) 26.9 Physical Exam Narrative General: Alert, oriented HEENT: Atraumatic, normocephalic Eyes: Anicteric, normal conjunctiva, extraocular movements grossly intact Neck: Supple Respiratory: Increased respiratory effort and diminished breath sounds bilaterally/poor air movement Cardiovascular: Mildly tachycardic GI: Soft, nontender, nondistended Extremities: No edema Musculoskeletal: Moving all extremities Neuro: No overt focal neurological deficits Skin: No rashes appreciated Psych: Patient irritable and reluctant to cooperate Results Lab / Micro Data 08/19/23 13:17 08/19/23 13:17 Labs: Laboratory Results - last 24 hr 08/19/23 13:17: WBC 21.1 H, RBC 5.48 H, Hgb 14.6, Hct 46.9, MCV 85.6, MCH 26.6 L , MCHC 31.1 L, RDW Std Deviation 44.2 H, RDW Coeff of Mariama 14.1, Plt Count 224, MPV 10.1, Immature Gran % (Auto) 0.500, Neut % (Auto) 87.2 H, Lymph % (Auto) 6.2 L, [place] % (Auto) 5.9, Eos % (Auto) 0.0, Baso % (Auto) 0.2, Absolute Neuts (auto) 18.4 H, Absolute Lymphs (auto) 1.30, Nucleated RBC % 0, PT 13.8, INR 1.1, APTT 29.6, Sodium 131 L, Potassium 3.8, Chloride 98, Carbon Dioxide 28.0, Anion Gap 5, BUN 14, Creatinine 1.03 H, Estim Creat Clear Calc 42.52, Est GFR (MDRD) Af Amer 68, Est GFR (MDRD) Non-Af 56 L, BUN/Creatinine Ratio 13.6, Glucose 185 H, Lactic Acid 1.5, Calcium 9.2, Total Bilirubin 1.30 H, AST 14 L, ALT 16, Alkaline Phosphatase 99, Troponin I High Sens 12, Total Protein 7.1, Albumin 3.2, Globulin 3.9, Albumin/Globulin Ratio 0.8 L 08/19/23 15:01: Urine Color Yellow, Urine Clarity Cloudy, Urine pH 6.0, Ur Spe cific [place] 1.015, Urine Protein 100 H, Urine Glucose (UA) Normal, Urine Ketones 15 H, Urine Occult Blood 150 H, Urine Nitrite Negative, Urine Bilirubin Negative, Urine Urobilinogen 1 H, Ur Leukocyte Esterase 500 H, Urine RBC 10-25 SEEN, Urine WBC >100 SEEN, Ur Squamous Epith Cells 0 SEEN, Urine Bacteria 4+, Urine Mucus 0 SEEN Micro: Microbiology 08/19/23 13:25 Mucosa - Nose SARS-CoV-2, Influenza & RSV (PCR) - Final ABG Data ABG results: ABG 08/19/23 14:13 Specimen Type GENA Sample Site Not entered VBG pH 7.43 H VBG pO2 54 H VBG HCO3 25 VBG Total CO2 26 VBG O2 Sat (Calc) 88 H VBG Base Excess 1 POC Mix VBG pCO2 Pt Tmp 38.3 L O2 Delivery Device Not entered Imaging Radiology Impression Chest X-Ray 08/19/23 13:29 IMPRESSION: No radiographic evidence of acute cardiopulmonary disease. Electronically Signed: Jeffery Boyd MD at 13:47 EST , Assessment & Plan Assessment/Plan (1) Acute exacerbation of chronic obstructive pulmonary disease (COPD): (2) UTI (urinary tract infection): PLAN: Plan #Acute hypoxia secondary to acute exacerbation of chronic COPD -87% on room air on arrival -Admit to floor, continuous O2 monitoring -Given steroids, nebs, placed on O2 -Chest x-ray no evidence of acute disease -Blood culture sent, ucx -Does have elevated WBC count but no infiltrate, suspect increase wbc d/t UTI -Influenza, COVID, RSV negative -We will obtain respiratory panel, sputum culture if able -O2 in place, wean as tolerated -IV methylprednisone -Scheduled DuoNebs -Antibiotics: levaquin as it covers both respiratory and urinary sources -Incentive spirometer -Mucinex #UTI -Urinary symptoms and UA suggestive of UTI -Urine culture ordered and pending -Patient on Levaquin as this covers respiratory and urinary source #N/D -Will check resp panel -Check stool studies -IVF # KARLY -Likely 2/2 poor PO and n/v/d -IVF -If not improving with fluids can consider further workup # Hyponatremia -Sodium 131, baseline appears to be within normal limits -Likely secondary to volume depletion -Will give IVF -If not improving or worsening can obtain further studies #Tobacco use -Advise cessation -Nicotine replacement available if desired #DVT ppx: heparin subq Rosalind August MD Time spent in the patient's overall evaluation,decision-making process, review of diagnostic data, adjustment of management, discussion with other providers, nursing nursing and ancillary staff involved in patient's care documentation, 55 Minutes Charges/Coding Visit Charges Inpatient E&M: 81554 Init Hosp L2
[2023-08-19] MEDS: Doxycycline 100 MG CAPSULE PO (15:56)
[2023-08-19] MEDS: 0.9% Normal Saline (1000mL) 1,000 ML 75 ML IV (16:58)
[2023-08-19] MEDS: levoFLOXacin 750 MG Tablet PO (18:03)
--- OUTSIDE RECORDS SUMMARY | 2023-08-19 18:11 | XMS RPT_ITS | CCD ---
Author Name Unknown Address [address] [place] [address] Organization [facility] Results Test Name Value Interpretation [...] BE BASED ON THE PRIMARY CLINICAL RECORDS. [facility]. provides no warranty or guarantee of the accuracy or completeness of information in this document.
--- OUTSIDE RECORDS SUMMARY | 2023-08-19 19:12 | XMS RPT_ITS | CCD ---
Author Name Unknown Address [address] [place] [address] Organization [facility] Results Test Name Value Interpretation [...] CLINICAL RECORDS. [facility]. provides no warranty or guarantee of the accuracy or completeness of information in this document.
[2023-08-19] MEDS: Ipratropium/Albuterol Sulfate 3 ML AMPUL.NEB INHALATION (19:19)
--- NOTE | 2023-08-19 19:22 | CPS ---
Pt was not attentive and wanted to make a phone call. Tx stopped. RN aware
[2023-08-19] MEDS: Pantoprazole Sodium 40 MG Tablet PO (20:29)
[2023-08-19] MEDS: 0.9% Saline Lock 10 ML Syringe IV (20:33)
--- NOTE | 2023-08-19 23:20 | CPS ---
Pt did not want woke up for aerosol txs. RN aware.
[2023-08-20] VITALS (8 sets, daily range): BP systolic 100–152; BP diastolic 49–60; PULSE 77–88; RESP 16–22; TEMP 36.2–37.1; O2SAT 94–98
[2023-08-20] MEDS: metroNIDAZOLE 500 MG Tablet PO ×4 (02:00→21:49)
--- NOTE | 2023-08-20 07:57 | PN.HOSP_ITS ---
Reason for Visit Reason for Visit: Diagnoses Chronic obstructive pulmonary disease with (acute) exacerbation (08/19/23) Urinary tract infection, site not specified (08/19/23) Subjective Subjective Patient is a 72-year-old F admitted with progressive shortness of breath and assessment of COPD with acute exacerbation made admitted to regular nursing floor for further management Objective Data Objective Data Vital Signs: Vital Signs Temp Pulse Resp BP Pulse Ox O2 Del Method O2 Flow Rate 97.7 F L 82 16 120/60 96 Nasal Cannula 3 08/20/23 02:05 08/20/23 02:05 08/20/23 02:05 08/20/23 02:05 08/20/23 02:05 08/20/23 02:32 08/20/23 02:32 Oxygen Flow Rate (L/min) 3 Oxygen Delivery Method Nasal Cannula Weight: 57.5 kg Body Mass Index (BMI) 23.9 Intake & Output: Intake and Output for Last 24 Hours 08/18/23 08/19/23 08/20/23 23:59 23:59 23:59 Intake Total 1000 / 1000 Balance 1000 / 1000 Lab / Micro Data 08/20/23 07:25 08/20/23 10:42 Labs: Laboratory Results - last 24 hr 08/19/23 13:17: WBC 21.1 H, RBC 5.48 H, Hgb 14.6, Hct 46.9, MCV 85.6, MCH 26.6 L , MCHC 31.1 L, RDW Std Deviation 44.2 H, RDW Coeff of Mariama 14.1, Plt Count 224, MPV 10.1, Immature Gran % (Auto) 0.500, Neut % (Auto) 87.2 H, Lymph % (Auto) 6.2 L, [place] % (Auto) 5.9, Eos % (Auto) 0.0, Baso % (Auto) 0.2, Absolute Neuts (auto) 18.4 H, Absolute Lymphs (auto) 1.30, Nucleated RBC % 0, PT 13.8, INR 1.1, APTT 29.6, Sodium 131 L, Potassium 3.8, Chloride 98, Carbon Dioxide 28.0, Anion Gap 5, BUN 14, Creatinine 1.03 H, Estim Creat Clear Calc 42.52, Est GFR (MDRD) Af Amer 68, Est GFR (MDRD) Non-Af 56 L, BUN/Creatinine Ratio 13.6, Glucose 185 H, Lactic Acid 1.5, Calcium 9.2, Total Bilirubin 1.30 H, AST 14 L, ALT 16, Alkaline Phosphatase 99, Troponin I High Sens 12, Total Protein 7.1, Albumin 3.2, Globulin 3.9, Albumin/Globulin Ratio 0.8 L 08/19/23 15:01: Urine Color Yellow, Urine Clarity Cloudy, Urine pH 6.0, Ur Specific [place] 1.015, Urine Protein 100 H, Urine Glucose (UA) Normal, Urine Ketones 15 H, Urine Occult Blood 150 H, Urine Nitrite Negative, Urine Bilirubin Negative, Urine Urobilinogen 1 H, Ur Leukocyte Esterase 500 H, Urine RBC 10-25 SEEN, Urine WBC >100 SEEN, Ur Squamous Epith Cells 0 SEEN, Urine Bacteria 4+, Urine Mucus 0 SEEN Micro: Microbiology 08/19/23 13:17 Blood Culture (Wb) - Anticubital Right Blood Culture - Preliminary 08/19/23 13:46 Blood Culture (Wb) - Venous Blood Culture - Preliminary 08/19/23 20:20 Stool Enteric Bacteriology - Final 08/19/23 20:20 Stool Clostridioides difficile (PCR) - Final 08/19/23 16:40 Mucosa - Nose Respiratory Panel (PCR) - Final 08/19/23 13:25 Mucosa - Nose SARS-CoV-2, Influenza & RSV (PCR) - Final ABG Data ABG results: ABG 08/19/23 14:13 Specimen Type GENA Sample Site Not entered VBG pH 7.43 H VBG pO2 54 H VBG HCO3 25 VBG Total CO2 26 VBG O2 Sat (Calc) 88 H VBG Base Excess 1 POC Mix VBG pCO2 Pt Tmp 38.3 L O2 Delivery Device Not entered Radiography Diagnostic Testing: Radiology Impression Chest X-Ray 08/19/23 13:29 IMPRESSION: No radiographic evidence of acute cardiopulmonary disease. Electronically Signed: Jeffery Boyd MD at 13:47 EST , Physical Exam Narrative GENERAL: cooperative but appears dyspneic at rest HEENT: Atraumatic; normocephalic EYES; Anicteric, Normal Conjunctiva NECK; supple, normal thyroid, RESPIRATORY: Diminished to auscultation CARDIOVASCULAR: Regular S1 S2, GI: soft, normoactive bowel sounds, : No Renal angle tenderness; EXTREMITIES: No edema, no clubbing, MUSCULOSKELETAL: no muscle wasting NEURO: Awake; no lateralizing signs. SKIN: No Rash PSYCH; Flat affect Assessment & Plan Assessment/Plan (1) Acute exacerbation of chronic obstructive pulmonary disease (COPD): (2) UTI (urinary tract infection): PLAN: Plan Patient is a 72-year-old F admitted with progressive shortness of breath and assessment of COPD with acute exacerbation made admitted to regular nursing floor for further management 1. Acute hypoxia ? Secondary to COPD with acute exacerbation. Initial viral respiratory panel came back negative. Admitted to regular nursing floor managed with systemic steroid antibiotic therapy bronchodilator treatment and supplemental oxygen titrated to keep saturation greater than 90 2. Acute kidney injury ? Suspected to be secondary to dehydration baseline creatinine 0.66 creatinine as of 08/20/2023 was 1.33 discontinued IV fluid with subsequent monitoring of electrolyte 3. Acute cystitis ? Patient is on antibiotic therapy pending culture result 4. Hyponatremia ? Secondary to hypovolemic hyponatremia on saline with subsequent monitoring of electrolyte 5. Tobacco dependence - Counseled on cessation, offered nicotine patch for tobacco cravings 6. DVT prophylaxis - On heparin Time spent in the patient's overall evaluation,decision-making process, review of diagnostic data, adjustment of management, discussion with other providers, nursing nursing and ancillary staff involved in patient's care documentation, 50 Minutes Charges/Coding Visit Charges Inpatient E&M: 71230 [facility] L3
[2023-08-20 08:15] LABS: Absolute Lymphocyte Count 0.79 X10^3/uL (0.83-4.51); Absolute Neutrophil Count 21.7 X10^3/uL (2.0-7.7); Basophil# 0.08 X10^3/uL; Basophil% 0.3 % (0-1); Eosinophil# 0.13 X10^3/uL; Eosinophils% 0.6 % (0-5); Hematocrit 42.7 % (37-47); Hemoglobin 12.9 g/dL (12.0-15.0); Lymphocyte # 0.79 X10^3/ul (0.83-4.51); Lymphocyte % 3.4 % (19-41); Mean Corp Hgb Conc 30.2 g/dL (32-36); Mean Corpuscular Volume 89.3 fL (81-99); Mean Platelet Vol. 11.5 fl (6.2-12.0); Monocyte# 0.67 X10^3/uL; Monocyte% 2.8 % (0-10); NRBC Flagged by Analyzer 0 % (0-5); Neutrophil # 21.74 X10^3/uL (2.7-7.7); Neutrophil % 92.2 % (47-70); POSITIVE COUNT YES; POSITIVE DIFFERENTIAL YES; Platelet Count 142 K/mm3 (150-450); RBC Distribution Width CV 14.2 % (11.6-14.6); RBC Distribution Width SD 45.9 fl (35.1-43.9); Red Blood Count 4.78 M/mm3 (4.2-5.4); White Blood Count 23.6 K/mm3 (4.4-11.0)
[2023-08-20] MEDS: Pantoprazole Sodium 40 MG Tablet PO (09:36)
[2023-08-20 11:06] LABS: Differential Indicated SCAN CRITERIA MET
[2023-08-20] MEDS: Ipratropium/Albuterol Sulfate 3 ML AMPUL.NEB INHALATION (11:06)
[2023-08-20 11:30] LABS: ALB/GLOB Ratio 0.8 RATIO (0.9-2.4); AST(SGOT) 15 U/L (15-37); Alanine Aminotransfer ALT/SGPT 17 U/L (13-56); Albumin, Serum 2.7 g/dL (3.2-5.0); Alkaline Phosphatase 79 U/L (45-117); Anion Gap 4 (5-15); BUN 29 mg/dL (7-18); BUN/Creat Ratio 21.8 RATIO (10-20); Calcium,Total 9.2 mg/dL (8.5-10.1); Chloride 102 mmol/L (98-107); Creatinine, Serum 1.33 mg/dL (0.55-1.02); EST Glomerular Filtration Rate 42 mL/min (>60); Est Glom Filt Rate - Afr Amer 50 mL/min (>60); Estimated Creatinine Clearance 31.19 ml/min; Globulin 3.6 g/dL (2.2-4.2); Glucose 228 mg/dL (74-106); Potassium 4.2 mmol/L (3.5-5.1); Protein, Total 6.3 g/dL (6.4-8.2); Sodium Level 134 mmol/L (136-145); Thyroid Stim Hormone (TSH) 0.17 uIU/mL (0.358-3.74)
--- NOTE | 2023-08-20 12:15 | CASEMGMT ---
ROLA PAINTER DC Planning Assessment: Face to Face with patient for initial transition planning/care coordination assessment. ROLA PAINTER introduced self and role at [facility], pt voices understanding. Pt alert and expressed frustration with repeated visits and states she was unable to sleep well so c/o being very tired. Pt agreeable to answering this ROLA PAINTER's questions with daughter at bedside. Care providers, pharmacy, and demographics verified. Admitting Dx: COPD exac LACE Stratification: 2 PCP: Pt does not have a PCP. PCP list provided to pt and this ROLA PAINTER encouraged pt to establish with PCP for f/u post hospitalization. Specialists: none Preferred Pharmacy: [facility] Insurance: [employer], MCR A only Prescription Benefit: yes LNOK: spouse Christos Living Arrangements: Pt lives with her spouse in a mobile home. Pt states she is independent with ADLs and IADLs. Pt's spouse is able to assist if needed. Transportation: Pt's spouse drives DME: cane, walker, nebulizer w/medication, home O@ 2l/min PRN from [employer] w/portability. Discussed need for pt to have portable tank brought into the hospital to have O2 at DC. Pt states she only has 4 tanks at home and would prefer to be provided one from [facility]. Pt states she had a PO but it broke and she cannot afford to purchase a new one. Will provide pt a PO upon discharge. SNF/HHC: pt denies previous providers. Pt's goal/plan: Pt plans to return home with support of spouse and denies any DC needs at this time. Pt declines a need for HH at discharge. Will continue to monitor and assist with further DC as determined. Yolanda Wise RN ACM
[2023-08-20] MEDS: 0.9% Saline Lock 10 ML Syringe IV ×2 (14:11→21:49)
--- NOTE | 2023-08-20 22:14 | NURSING ---
pt frustrated and mad w/ RN being bothered with her watching live video. RN attempts to explain the routine of care, pt disagree and refused with POC. Pt noncompliant, RN encouraged pt to call for assistance if needed. Pt states that she is going home tomorrow and doesn't need to be bother anymore. Pt refused some meds, and requested to not be bothered at all anymore tonight.
[2023-08-21 05:14] VITALS: BP 148/60; PULSE 77; RESP 17; TEMP 36; O2SAT 97
[2023-08-21] MEDS: metroNIDAZOLE 500 MG Tablet PO (05:19)
[2023-08-21] MEDS: 0.9% Saline Lock 10 ML Syringe IV (05:19)
[2023-08-21] MEDS: levoFLOXacin 750 MG Tablet PO (05:50)
[2023-08-21 06:42] LABS: Absolute Lymphocyte Count 0.74 X10^3/uL (0.83-4.51); Absolute Neutrophil Count 17.9 X10^3/uL (2.0-7.7); Basophil# 0.02 X10^3/uL; Basophil% 0.1 % (0-1); Hematocrit 42.6 % (37-47); Hemoglobin 13.3 g/dL (12.0-15.0); Lymphocyte # 0.74 X10^3/ul (0.83-4.51); Lymphocyte % 3.9 % (19-41); Mean Corp Hgb Conc 31.2 g/dL (32-36); Mean Corpuscular Hgb 27.3 pg (27.0-32.0); Mean Corpuscular Volume 87.5 fL (81-99); Mean Platelet Vol. 10.1 fl (6.2-12.0); Monocyte# 0.49 X10^3/uL; Monocyte% 2.5 % (0-10); NRBC Flagged by Analyzer 0 % (0-5); Neutrophil # 17.88 X10^3/uL (2.7-7.7); Platelet Count 249 K/mm3 (150-450); RBC Distribution Width CV 13.8 % (11.6-14.6); RBC Distribution Width SD 44.6 fl (35.1-43.9); Red Blood Count 4.87 M/mm3 (4.2-5.4); White Blood Count 19.2 K/mm3 (4.4-11.0)
[2023-08-21 07:13] LABS: Anion Gap 4 (5-15); BUN 36 mg/dL (7-18); BUN/Creat Ratio 35.3 RATIO (10-20); Calcium,Total 9.3 mg/dL (8.5-10.1); Chloride 106 mmol/L (98-107); Creatinine, Serum 1.02 mg/dL (0.55-1.02); EST Glomerular Filtration Rate 57 mL/min (>60); Est Glom Filt Rate - Afr Amer 68 mL/min (>60); Estimated Creatinine Clearance 40.67 ml/min; Glucose 171 mg/dL (74-106); Magnesium 2.7 mg/dL (1.6-2.6); Potassium 4.4 mmol/L (3.5-5.1); Sodium Level 139 mmol/L (136-145)
--- NOTE | 2023-08-21 08:17 | PN.HOSP_ITS ---
Reason for Visit Reason for Visit: Diagnoses Chronic obstructive pulmonary disease with (acute) exacerbation (08/19/23) Urinary tract infection, site not specified (08/19/23) Subjective Subjective Patient seen clinical condition significantly improved Objective Data Objective Data Vital Signs: Vital Signs Temp Pulse Resp BP Pulse Ox O2 Del Method O2 Flow Rate 96.8 F L 77 17 148/60 H 97 Nasal Cannula 2 08/21/23 05:14 08/21/23 05:14 08/21/23 05:14 08/21/23 05:14 08/21/23 05:14 08/21/23 05:27 08/21/23 05:27 Oxygen Flow Rate (L/min) 2 Oxygen Delivery Method Nasal Cannula Weight: 57.5 kg Body Mass Index (BMI) 23.9 Intake & Output: Intake and Output for Last 24 Hours 08/19/23 08/20/23 08/21/23 23:59 23:59 23:59 Intake Total 1954 / 2174 220 / 220 Balance 1954 220 / 220 Lab / Micro Data 08/21/23 06:25 08/21/23 06:25 Labs: Laboratory Results - last 24 hr 08/20/23 07:25: WBC 23.6 H, RBC 4.78, Hgb 12.9, Hct 42.7, MCV 89.3, MCH 27.0, MCHC 30.2 L, RDW Std Deviation 45.9 H, RDW Coeff of Mariama 14.2, Plt Count 142 L, MPV 11.5, Immature Gran % (Auto) 0.700, Neut % (Auto) 92.2 H, Lymph % (Auto) 3.4 L, [place] % (Auto) 2.8, Eos % (Auto) 0.6, Baso % (Auto) 0.3, Absolute Neuts (auto) 21.7 H, Absolute Lymphs (auto) 0.79 L, Nucleated RBC % 0, Sodium Cancelled, Potassium Cancelled, Chloride Cancelled, Carbon Dioxide Cancelled, Anion Gap Cancelled, BUN Cancelled, Creatinine Cancelled, Estim Creat Clear Calc Cancelled, Est GFR (MDRD) Af Amer Cancelled, Est GFR (MDRD) Non-Af Cancelled, BUN/Creatinine Ratio Cancelled, Glucose Cancelled, Calcium Cancelled, Total Bilirubin Cancelled, AST Cancelled, ALT Cancelled, Alkaline Phosphatase Cancelled, Total Protein Cancelled, Albumin Cancelled, Globulin Cancelled, Albumin/Globulin Ratio Cancelled, TSH Cancelled 08/20/23 10:42: Sodium 134 L, Potassium 4.2, Chloride 102, Carbon Dioxide 28.0, Anion Gap 4 L, BUN 29 H, Creatinine 1.33 H, Estim Creat Clear Calc 31.19, Est GFR (MDRD) Af Amer 50 L, Est GFR (MDRD) Non-Af 42 L, BUN/Creatinine Ratio 21.8 H , Glucose 228 H, Calcium 9.2, Total Bilirubin 0.30, AST 15, ALT 17, Alkaline Phosphatase 79, Total Protein 6.3 L, Albumin 2.7 L, Globulin 3.6, Albumin/Globulin Ratio 0.8 L, TSH 0.17 L 08/21/23 06:25: WBC 19.2 H, RBC 4.87, Hgb 13.3, Hct 42.6, MCV 87.5, MCH 27.3, MCHC 31.2 L, RDW Std Deviation 44.6 H, RDW Coeff of Mariama 13.8, Plt Count 249, MPV 10.1, Immature Gran % (Auto) 0.500, Neut % (Auto) 93.0 H, Lymph % (Auto) 3.9 L, Leslie % (Auto) 2.5, Eos % (Auto) 0.0, Baso % (Auto) 0.1, Absolute Neuts (auto) 17.9 H, Absolute Lymphs (auto) 0.74 L, Nucleated RBC % 0, Sodium 139, Potassium 4.4, Chloride 106, Carbon Dioxide 29.0, Anion Gap 4 L, BUN 36 H, Creatinine 1.02, Estim Creat Clear Calc 40.67, Est GFR (MDRD) Af Amer 68, Est GFR (MDRD) Non-Af 57 L, BUN/Creatinine Ratio 35.3 H, Glucose 171 H, Calcium 9.3, Phosphorus 3.0, Magnesium 2.7 H Micro: Microbiology 08/19/23 13:46 Blood Culture (Wb) - Venous Blood Culture - Preliminary GNR lactose research and evaluation analyst 08/19/23 13:17 Blood Culture (Wb) - Anticubital Right Blood Culture - Preliminary GNR lactose research and evaluation analyst 08/19/23 15:01 Urine, Clean Catch Urine Culture - Preliminary Presumptive E. coli 08/19/23 20:20 Stool Enteric Bacteriology - Final 08/19/23 20:20 Stool Clostridioides difficile (PCR) - Final 08/19/23 16:40 Mucosa - Nose Respiratory Panel (PCR) - Final 08/19/23 13:25 Mucosa - Nose SARS-CoV-2, Influenza & RSV (PCR) - Final Physical Exam Narrative GENERAL: cooperative but appears dyspneic at rest HEENT: Atraumatic; normocephalic EYES; Anicteric, Normal Conjunctiva NECK; supple, normal thyroid, RESPIRATORY: Diminished to auscultation CARDIOVASCULAR: Regular S1 S2, GI: soft, normoactive bowel sounds, : No Renal angle tenderness; EXTREMITIES: No edema, no clubbing, MUSCULOSKELETAL: no muscle wasting NEURO: Awake; no lateralizing signs. SKIN: No Rash PSYCH; Flat affect Assessment & Plan Assessment/Plan (1) Acute exacerbation of chronic obstructive pulmonary disease (COPD): (2) UTI (urinary tract infection): PLAN: Plan Patient is a 72-year-old F admitted with progressive shortness of breath and assessment of COPD with acute exacerbation made admitted to regular nursing floor for further management 1. Acute hypoxia ? Secondary to COPD with acute exacerbation. Initial viral respiratory panel came back negative. Admitted to regular nursing floor managed with systemic steroid antibiotic therapy bronchodilator treatment and supplemental oxygen titrated to keep saturation greater than 90 ? 08/21/2019 patient clinical condition improved back to baseline plan is for patient to be discharged home 2. Acute kidney injury ? Suspected to be secondary to dehydration baseline creatinine 0.66 creatinine as of 08/20/2023 was 1.33 discontinued IV fluid with subsequent monitoring of electrolyte 3. Acute cystitis with E. coli ? Patient is on antibiotic therapy pending culture result ? Sensitivities reviewed patient will be discharged on cefdinir 4. Hyponatremia ? Secondary to hypovolemic hyponatremia on saline with subsequent monitoring of electrolyte 5. Tobacco dependence - Counseled on cessation, offered nicotine patch for tobacco cravings 6. DVT prophylaxis - On heparin Time spent in the patient's overall evaluation,decision-making process, review of diagnostic data, adjustment of management, discussion with other providers, nursing nursing and ancillary staff involved in patient's care documentation, 35 Minutes
[2023-08-21 10:00] VITALS: BP 148/65; PULSE 83; RESP 17; TEMP 36.6; O2SAT 95
--- NOTE | 2023-08-21 11:30 | CASEMGMT ---
Pt states that she has 3 portable O2 tanks at home and denies bringing a tank into the hospital prior to DC. TC to Celestina from [facility] and Celestina states that I can give the pt another Portable O2 tank prior to DC. Per the pt RN, pt is refusing an O2 qualification test. Portable O2 tank given to the pt at this time and pt denies needing education. Pt states that she feels safe going home today and denies further needs.
--- NOTE | 2023-08-21 11:30 | PCM.DC.SUM ---
Providers Date of Admission: 08/19/23 Date of Discharge: 08/21/23 Primary Care Physician: No Primary Care Phys Reason For Visit: EXACERBATION COPD/ACUTE BRONCHOSPASM Diagnosis Discharge Diagnosis (1) Acute exacerbation of chronic obstructive pulmonary disease (COPD): Status: Chronic Code(s): J44.1 - Chronic obstructive pulmonary disease with (acute) exacerbation (2) UTI (urinary tract infection): Status: Acute Code(s): N39.0 - Urinary tract infection, site not specified Plan Patient is a 72-year-old F admitted with progressive shortness of breath and assessment of COPD with acute exacerbation made admitted to regular nursing floor for further management 1. Acute hypoxia ? Secondary to COPD with acute exacerbation. Initial viral respiratory panel came back negative. Admitted to regular nursing floor managed with systemic steroid antibiotic therapy bronchodilator treatment and supplemental oxygen titrated to keep saturation greater than 90 ? 08/21/2019 patient clinical condition improved back to baseline plan is for patient to be discharged home 2. Acute kidney injury ? Suspected to be secondary to dehydration baseline creatinine 0.66 creatinine as of 08/20/2023 was 1.33 discontinued IV fluid with subsequent monitoring of electrolyte 3. Acute cystitis with E. coli ? Patient is on antibiotic therapy pending culture result ? Sensitivities reviewed patient will be discharged on cefdinir 4. Hyponatremia ? Secondary to hypovolemic hyponatremia on saline with subsequent monitoring of electrolyte 5. Tobacco dependence - Counseled on cessation, offered nicotine patch for tobacco cravings 6. DVT prophylaxis - On heparin Time spent in the patient's overall evaluation,decision-making process, review of diagnostic data, adjustment of management, discussion with other providers, nursing nursing and ancillary staff involved in patient's care documentation, 35 Minutes Medications at Discharge Home Medications xssywqy-vxznvlvxhitov-vohdczfz 250 mg-250 mg-65 mg tablet (Excedrin Migraine) 1 tab PO DAILY PRN headache 08/19/23 ibuprofen 200 mg capsule 600 mg PO TID PRN pain 08/19/23 albuterol sulfate 90 mcg/actuation aerosol inhaler 2 inh inhalation Q4H PRN shortness of breath or wheezing #8.5 grams 08/21/23 budesonide-formoterol HFA 80 mcg-4.5 mcg/actuation aerosol inhaler (Breyna) 1 inh inhalation BID #10.2 grams 08/21/23 cefdinir 300 mg capsule 300 mg PO BID #10 caps 08/21/23 prednisone 20 mg tablet 20 mg PO BID #10 tabs 08/21/23 Physical Exam Narrative GENERAL: cooperative HEENT: Atraumatic; normocephalic EYES; Anicteric, Normal Conjunctiva NECK; supple, normal thyroid, RESPIRATORY: Diminished to auscultation CARDIOVASCULAR: Regular S1 S2, GI: soft, normoactive bowel sounds, : No Renal angle tenderness; EXTREMITIES: No edema, no clubbing, MUSCULOSKELETAL: no muscle wasting NEURO: Awake; no lateralizing signs. SKIN: No Rash PSYCH; Flat affect Weight / BMI Weight Weight: 57.5 kg Body Mass Index (BMI) 23.9 ABG / Lab / Microbiology Data 08/21/23 06:25 08/21/23 06:25 Laboratory: Laboratory Results - last 24 hr 08/20/23 10:42: Sodium 134 L, Potassium 4.2, Chloride 102, Carbon Dioxide 28.0, Anion Gap 4 L, BUN 29 H, Creatinine 1.33 H, Estim Creat Clear Calc 31.19, Est GFR (MDRD) Af Amer 50 L, Est GFR (MDRD) Non-Af 42 L, BUN/Creatinine Ratio 21.8 H, Glucose 228 H, Calcium 9.2, Total Bilirubin 0.30, AST 15, ALT 17, Alkaline Phosphatase 79, Total Protein 6.3 L, Albumin 2.7 L, Globulin 3.6, Albumin/Globulin Ratio 0.8 L, TSH 0.17 L 08/21/23 06:25: WBC 19.2 H, RBC 4.87, Hgb 13.3, Hct 42.6, MCV 87.5, MCH 27.3, MCHC 31.2 L, RDW Std Deviation 44.6 H, RDW Coeff of Mariama 13.8, Plt Count 249, MPV 10.1, Immature Gran % (Auto) 0.500, Neut % (Auto) 93.0 H, Lymph % (Auto) 3.9 L, [place] % (Auto) 2.5, Eos % (Auto) 0.0, Baso % (Auto) 0.1, Absolute Neuts (auto) 17.9 H, Absolute Lymphs (auto) 0.74 L, Nucleated RBC % 0, Sodium 139, Potassium 4.4, Chloride 106, Carbon Dioxide 29.0, Anion Gap 4 L, BUN 36 H, Creatinine 1.02, Estim Creat Clear Calc 40.67, Est GFR (MDRD) Af Amer 68, Est GFR (MDRD) Non-Af 57 L, BUN/Creatinine Ratio 35.3 H, Glucose 171 H, Calcium 9.3, Phosphorus 3.0, Magnesium 2.7 H Microbiology: Microbiology 08/19/23 15:01 Urine, Clean Catch Urine Culture - Final Presumptive E. coli 08/19/23 13:46 Blood Culture (Wb) - Venous Blood Culture - Preliminary GNR lactose commercial credit reviewer 08/19/23 13:17 Blood Culture (Wb) - Anticubital Right Blood Culture - Preliminary GNR lactose commercial credit reviewer 08/19/23 20:20 Stool Enteric Bacteriology - Final 08/19/23 20:20 Stool Clostridioides difficile (PCR) - Final 08/19/23 16:40 Mucosa - Nose Respiratory Panel (PCR) - Final 08/19/23 13:25 Mucosa - Nose SARS-CoV-2, Influenza & RSV (PCR) - Final D/C Instructions Discharge Diet: No restrictions Discharge Activity: Return to Normal Activity Call your doctor if you observe: Fever of 101 or Higher, Shortness of breath, Fainting spells and Chest pain Meaningful Use Info Meaningful Use Diagnoses (Choose all that apply): None applicable Discharge Plan Admission Admit Date/Time: 08/19/23 15:42 Attending Provider: Dixon Avial Primary Care Provider: Care Physician,Florence Primary Consulting Providers: Rosalind August Discharge Orders/Prescriptions Prescriptions: New prednisone 20 mg tablet 20 mg PO BID Qty: 10 0RF cefdinir 300 mg capsule 300 mg PO BID Qty: 10 0RF albuterol sulfate 90 mcg/actuation HFA aerosol inhaler 2 inh inhalation Q4H PRN (Reason: shortness of breath or wheezing) Qty: 8.5 0RF budesonide-formoterol [Breyna] 80-4.5 mcg/actuation HFA aerosol inhaler 1 inh inhalation BID Qty: 10.2 0RF Continued Excedrin Migraine 250-250-65 mg tablet 1 tab PO DAILY PRN (Reason: headache) ibuprofen 200 mg capsule 600 mg PO TID PRN (Reason: pain) Referrals / Follow Up: Care Physician,No Primary [Primary Care Provider] - Disposition Disposition (needs filled in before D/C Order can be placed): Home, Self Care Charges/Coding Visit Charges Inpatient E&M: 91600 Disch Hosp >30min
--- NOTE | 2023-08-21 11:48 | NURSING ---
Pt refused home oxygen testing.
== END 2023-08-21 13:29 | disposition home or self-care (01) | DRG 191 ==
LOC: ED 15:18 → PCU 15:52
PROVIDERS: Admitting Provider Internal Medicine; Emergency Provider Emergency Medicine; Visit Provider Internal Medicine
DX: J44.1 Chronic obstructive pulmonary disease with (acute) exacerbation (principal); N17.9 Acute kidney failure, unspecified; E87.1 Hypo-osmolality and hyponatremia; N30.00 Acute cystitis without hematuria; R19.7 Diarrhea, unspecified; R11.2 Nausea with vomiting, unspecified; F17.200 Nicotine dependence, unspecified, uncomplicated; E86.0 Dehydration; B96.20 Unspecified Escherichia coli [E. coli] as the cause of diseases classified elsewhere; Z98.51 Tubal ligation status; R09.02 Hypoxemia
CPT/HCPCS: 36415; 71045; 80048; 80053; 81001; 82803; 83605; 83735; 84100; 84443; 84484; 85025; 85610; 85730; 87040; 87077; 87086; 87088; 87186; 87493; 87506; 87631; 87633; 93005; 94640; 97802; 99252; 99285; 99406; J7030; A4216; G0463

== ENCOUNTER 2023-09-12 20:41 | Emergency (ER) | payer OTHER, SELFPAY ==
[2023-09-12 20:46] VITALS: BP 170/105; PULSE 102; RESP 24; TEMP 36.4; O2SAT 93; BMI 26.6
[2023-09-12 20:49] VITALS: O2SAT 94
[2023-09-12 20:50] VITALS: O2SAT 93
--- NOTE | 2023-09-12 20:56 | EKG12_ITS ---
Test Reason : DYSRHYTHMIA Blood Pressure : / mmHG Vent. Rate : 102 BPM Atrial Rate : 102 BPM P-R Int : 154 ms QRS Dur : 088 ms QT Int : 366 ms P-R-T Axes : 051 021 087 degrees QTc Int : 477 ms Sinus tachycardia Possible Inferior infarct (cited on or before 19-AUG-2023) Abnormal ECG Confirmed by Koko Virea ([id number]), web editor [facility] ([id number]) on 09/14/2023 10:30:42 AM Referred By: Confirmed By:Koko Viera
--- NOTE | 2023-09-12 21:09 | EX.ED.DYSGE1 ---
HPI <ASHLEY Romero - Last Filed: 09/12/23 22:01> History of Present Illness Chief Complaint: Shortness of Breath Narrative Narrative: Patient is a 72-year-old female with history of COPD, hypertension, who still smokes 1 pack/day, has oxygen at home that she wears as needed. Patient presents to the emergency department for cough, worsening shortness of breath as well as nausea. Patient was recently admitted here 2 weeks ago, she had a UTI as well as a COPD exacerbation she is currently not on any antibiotics or prednisone. Today, she states that she felt more short of breath, she felt sick to her stomach and is here for reevaluation. PFSH <ASHLEY Romero - Last Filed: 09/12/23 22:01> PFSH Medical History COPD (chronic obstructive pulmonary disease) COPD (chronic obstructive pulmonary disease) Smoker Home Medications arhrtxf-xhcyvykqhxwlp-rylwdivn 250 mg-250 mg-65 mg tablet (Excedrin Migraine) 1 tab PO DAILY PRN headache 08/19/23 [History Last Taken 08/18/23] ibuprofen 200 mg capsule 600 mg PO TID PRN pain 08/19/23 [History Last Taken 08/18/23] albuterol sulfate 2.5 mg/0.5 mL solution for nebulization 2.5 mg (0.5 mL) inhalation Q4H PRN shortness of breath or wheezing #30 ea 08/21/23 [Rx Last Taken Unknown] budesonide-formoterol HFA 80 mcg-4.5 mcg/actuation aerosol inhaler (Breyna) 1 inh inhalation BID #10.2 grams 08/21/23 [Rx Last Taken Unknown] albuterol sulfate 2.5 mg/3 mL (0.083 %) solution for nebulization 2.5 mg (3 mL) inhalation Q4H PRN #25 vials 09/12/23 [Rx Last Taken Unknown] prednisone 20 mg tablet 40 mg (2 x 20 mg) PO DAILY 7 days #14 tabs 09/12/23 [Rx Last Taken Unknown] Allergy/AdvReac Type Severity Reaction Status Date / Time nitrofurantoin Allergy PT UNSURE Verified 09/12/23 20:45 [From Macrodantin] OF REACTION Family History Mother Heart disease Dementia Father Lung cancer Underlying tobacco use history concurrently. Surgical History History of bilateral tubal ligation Hx of hernia repair Social History household members: spouse Smoking Status: Heavy Smoker (>10/day) alcohol intake: never substance use type: does not use ROS <ASHLEY Romero - Last Filed: 09/12/23 22:01> ROS ED ROS Narrative Constitutional: Negative for fever, weight loss, weakness. Positive for chills Eyes: Negative for vision loss, vision change, double vision ENT: Negative for any sore throat, ear pain, congestion Cardiovascular: Negative for any chest pain, tightness, palpitations Respiratory: Negative for any sputum production, hemoptysis. Positive for cough dyspnea, dyspnea on exertion, orthopnea Gastrointestinal: Negative for any abdominal pain, vomiting, diarrhea, constipation, blood in stool, blood in vomit. Positive for nausea : Negative for any urinary frequency, dysuria, retention, blood in urine Muscle skeletal: Negative for any neck pain, back pain Neurological: Negative for any headache, syncope, dizziness Skin: Negative for any rashes, itching, abrasions, lacerations Psychiatric: Negative for any depression, anxiety, stress, suicidal ideation, homicidal ideation Hematologic: Negative for any excessive bruising, easy bleeding EXAM <ASHLEY Romero - Last Filed: 09/12/23 22:01> Physical Exam Narrative Exam Narrative: Vital signs reviewed. Patient is on 2 L nasal cannula with pulse oxygenation 97%. Patient is a low-grade temperature HEET: Head normocephalic atraumatic, TMs clear bilaterally. Posterior pharynx is clear, dry mucous membranes. Nares clear bilaterally. Neck: Supple with no lymphadenopathy or tenderness. No signs of meningismus. Cardiac: Regular rate and rhythm no murmurs gallops or rubs, equal peripheral pulses bilaterally. Respiratory: Patient has diminished lung sounds in the bases, slight expiratory wheezes to bilateral upper lungs. No chest tenderness. Abdomen: Soft, nontender, nondistended. No abdominal bruit or pulsatile masses. No hepatosplenomegaly Extremities: No peripheral edema, no signs of gross trauma or deformity. Active full range of motion of all extremities. Pain with flexion extension of the right hip Neuro: Cranial nerves II through XII intact, no focal neurological deficits. Skin: Clean dry and intact with no rash, purpura, petechiae, vesicles or pustules. Backs/flank: No CVA tenderness, no midline spinal tenderness, no deformity. Psych: Normal mood and affect. No SI, HI or acute psychosis. Const Vital Signs: 09/12/23 20:46 09/12/23 20:49 09/12/23 20:50 Temperature 97.5 F L Temperature Source Temporal Pulse Rate 102 H Respiratory Rate 24 H Respiratory Effort Short of Breath Labored Pursed Lip Respiratory Depth Normal Respiratory Pattern Normal Blood Pressure 170/105 H Blood Pressure Mean 126 Pulse Ox 93 94 Oxygen Delivery Method Nasal Cannula Nasal Cannula Nasal Cannula Oxygen Flow Rate (L/min) 2 2 09/12/23 21:15 09/12/23 21:49 Temperature 98.7 F Temperature Source Oral Pulse Rate 100 100 Respiratory Rate 20 H 21 H Respiratory Effort Respiratory Depth Respiratory Pattern Normal Blood Pressure 163/63 H Blood Pressure Mean 96 Pulse Ox 94 Oxygen Delivery Method Room Air Oxygen Flow Rate (L/min) <Dr. Estiven Graham MD - Last Filed: 09/12/23 22:47> Physical Exam Const Vital Signs: 09/12/23 20:46 09/12/23 20:49 09/12/23 20:50 Temperature 97.5 F L Temperature Source Temporal Pulse Rate 102 H Respiratory Rate 24 H Respiratory Effort Short of Breath Labored Pursed Lip Respiratory Depth Normal Respiratory Pattern Normal Blood Pressure 170/105 H Blood Pressure Mean 126 Pulse Ox 93 94 Oxygen Delivery Method Nasal Cannula Nasal Cannula Nasal Cannula Oxygen Flow Rate (L/min) 2 2 09/12/23 21:15 09/12/23 21:49 Temperature 98.7 F Temperature Source Oral Pulse Rate 100 100 Respiratory Rate 20 H 21 H Respiratory Effort Respiratory Depth Respiratory Pattern Normal Blood Pressure 163/63 H Blood Pressure Mean 96 Pulse Ox 94 Oxygen Delivery Method Room Air Oxygen Flow Rate (L/min) MDM <ASHLEY Romero - Last Filed: 09/12/23 22:01> MDM Lab Data Labs: Laboratory Results - last 24 hr 09/12/23 21:15 WBC 12.2 H RBC 5.27 Hgb 14.4 Hct 45.3 MCV 86.0 MCH 27.3 MCHC 31.8 L RDW Std Deviation 45.8 H RDW Coeff of Mariama 14.5 Plt Count 200 MPV 10.4 Immature Gran % (Auto) 0.400 Neut % (Auto) 85.2 H Lymph % (Auto) 9.2 L [place] % (Auto) 4.8 Eos % (Auto) 0.2 Baso % (Auto) 0.2 Absolute Neuts (auto) 10.4 H Absolute Lymphs (auto) 1.12 Nucleated RBC % 0 Sodium 137 Potassium 3.6 Chloride 103 Carbon Dioxide 28.0 Anion Gap 6 BUN 11 Creatinine 0.94 Estim Creat Clear Calc 46.39 Est GFR (MDRD) Af Amer 76 Est GFR (MDRD) Non-Af 62 BUN/Creatinine Ratio 11.8 Glucose 154 H Calcium 8.9 Total Bilirubin 0.60 AST 17 ALT 17 Alkaline Phosphatase 94 Troponin I High Sens 24 Total Protein 7.2 Albumin 3.5 Globulin 3.7 Albumin/Globulin Ratio 0.9 Lipase 36 Treatment and Re-Evaluation :: Differential diagnosis includes however is not limited to: COPD exacerbation, ACS, NE, community-acquired pneumonia, viral-like illness such as influenza, COVID-19, RSV. X-ray of the right hip may show possible fracture, stress fracture, pelvic fracture, arthritis. Patient appears to be in no obvious distress, patient does get irritated when asking questions regarding her care. Per the son, patient does have poor follow-up. Patient still continues to smoke 1/2 pack to 1 pack/day. Patient will receive a full workup including chest x-ray, viral panel. Patient was given breathing treatments, IV steroids as well as IV Zofran. All radiologic examinations were read, reviewed by the emergency department attending. From these reads, a plan of care will be put in place. Patient's laboratory values showed a leukocytosis with a white blood count of 12.2, this is an improvement, on 21 August, the white blood count was 19.2. Patient's chemistries were unremarkable, blood sugar was 254 which is baseline. Patient received x-rays of the chest as well as a hip x-ray. Patient does have some relief with treatments as well as IV Zofran. <Dr. Estiven Graham MD - Last Filed: 09/12/23 22:47> [facility] Narrative Medical decision making narrative: I have personally performed a face to face assessment of the patient and have reviewed the NIRMALA Note. I performed a substantive portion of the visit including all aspects of the following. My bo findings include: History is [72-year-old female history of COPD on home oxygen. Has a nebulizer. Complaining of shortness of breath and wheezing. Patient still smokes. She was admitted to the hospital about 3 to 4 weeks ago with UTI and COPD flare. She is no longer on any antibiotics. She is no longer on prednisone. She denies any chest pain. No hemoptysis. No leg pain or swelling.] Exam is [70-year-old female vital signs stable. On her 2 L she is 93%. She is chronically on O2 at home. HEENT exam moist mucous membranes. Pupils round react light. Neck nontender. No JVD. Lungs expiratory expiratory wheezes. Prolonged expiratory phase. No rales or rhonchi. Heart regular rhythm rate about 100 no murmur. Chest wall nontender. Abdomen soft nontender. Back nontender. Moving all 4 extremities. Chronic changes to her nails with clubbing. Changes of the skin. Calves are nontender without edema or cords. Neurologically she is awake and alert no focal motor deficits.] Medical Decision Making [72-year-old with COPD flare. Treated with aerosols and Solu-Medrol IV. Cardiac respiratory workup.] Other additions or changes: [None] Repeat exam patient is doing well at 10:35 PM. Breathing is much improved. She is comfortable being discharged home. She has home oxygen at home. She will be given prescription for prednisone 40 mg/day for the next 7 days. Albuterol for her nebulizer at home. She does not have a primary care physician she will be referred to Dr. Dwight Musa. She does not have a pot annealer she will be referred to Dr. Neely of pulmonology. She does not have an orthopedic surgeon show referred to Dr. Parsons for her severe right hip arthritis. She has been counseled on stopping smoking. History & Record Review Discussion w/independent historian: Patient Additional record(s) reviewed:: Prior inpatient record, Prior outpatient record, Prior ED visit, Prior labs and No prior records Lab Data Attestation: I reviewed the patient's lab results. Lab results narrative: CBC shows a white count of 12. H&H 14 and 45. Platelets 200. Electrolytes show gap 6 normal BUN and creatinine. Glucose 154. Liver enzymes normal. Chest x-ray chronic changes no acute process no pneumothorax. No infiltrate. Right hip x-ray shows severe arthritis of her right hip. No fracture. No dislocation. Labs: Laboratory Results - last 24 hr 09/12/23 21:15 WBC 12.2 H RBC 5.27 Hgb 14.4 Hct 45.3 MCV 86.0 MCH 27.3 MCHC 31.8 L RDW Std Deviation 45.8 H RDW Coeff of Mariama 14.5 Plt Count 200 MPV 10.4 Immature Gran % (Auto) 0.400 Neut % (Auto) 85.2 H Lymph % (Auto) 9.2 L [place] % (Auto) 4.8 Eos % (Auto) 0.2 Baso % (Auto) 0.2 Absolute Neuts (auto) 10.4 H Absolute Lymphs (auto) 1.12 Nucleated RBC % 0 Sodium 137 Potassium 3.6 Chloride 103 Carbon Dioxide 28.0 Anion Gap 6 BUN 11 Creatinine 0.94 Estim Creat Clear Calc 46.39 Est GFR (MDRD) Af Amer 76 Est GFR (MDRD) Non-Af 62 BUN/Creatinine Ratio 11.8 Glucose 154 H Calcium 8.9 Total Bilirubin 0.60 AST 17 ALT 17 Alkaline Phosphatase 94 Troponin I High Sens 24 Total Protein 7.2 Albumin 3.5 Globulin 3.7 Albumin/Globulin Ratio 0.9 Lipase 36 Radiography Chest X-Ray - ED: 1 View, Read by ED Physician, Normal, Heart, Lungs, Mediastinum, Bony Structures, No Acute Disease and Chronic Changes Diagnostic Testing: Chest x-ray portable, single view, interpreted by myself shows no acute abnormality. Normal cardiac silhouette. Normal lung combs. Chronic changes consistent with COPD. No infiltrate. No pneumothorax. No effusions. Right hip x-ray with pelvis shows no acute fracture or dislocation. Severe arthritis of the right hip. Degenerative arthritis. Rhythm Strip Rhythm Strip: Sinus Tach Rate: 102 Ectopy: None EKG Initial EKG: Attestation: I personally reviewed and interpreted this EKG as follows: Interpretation: No Acute Injury Pattern and Sinus Tachycardia Comments: Sinus tachycardia rate of 102 no acute signs of NE or ischemia. No S1Q3T3. No dysrhythmia. Discharge Plan Triage Chief Complaint: Shortness of Breath ED Midlevel Provider: Torey Rosales ED Provider: Estiven Graham Dx/Rx/DC Orders Clinical Impression: Acute exacerbation of chronic obstructive pulmonary disease, Arthritis of right hip Instructions: ED COPD Flare, Osteoarthritis (OA) Prescriptions: New prednisone 20 mg tablet 40 mg PO DAILY 7 Days Qty: 14 0RF albuterol sulfate 2.5 mg /3 mL (0.083 %) solution for nebulization 2.5 mg inhalation Q4H PRN Qty: 25 0RF Rx Instructions: Use q4 hours and PRN for wheezing No Action Excedrin Migraine 250-250-65 mg tablet 1 tab PO DAILY PRN (Reason: headache) ibuprofen 200 mg capsule 600 mg PO TID PRN (Reason: pain) budesonide-formoterol [Breyna] 80-4.5 mcg/actuation HFA aerosol inhaler 1 inh inhalation BID Qty: 10.2 0RF albuterol sulfate 2.5 mg/0.5 mL solution for nebulization 2.5 mg inhalation Q4H PRN (Reason: shortness of breath or wheezing) Qty: 30 0RF Primary Care Provider: Care Physician,No Primary Referrals: Bar Neely DO [Med Staff - Active Staff] - As soon as possible Dwight Musa MD [Med Staff - Machine Sweeper Brush Maker] - As soon as possible Malcom Parsons DO [Med Staff - Active Staff] - As soon as possible Care Physician,No Primary [Primary Care Provider] - Activity Restrictions/Additional Instructions: Absolutely positively need to stop smoking. For the next 4 days use your oxygen all the time. Prednisone daily for the next 7 days starting tomorrow. 40 mg/day. Once a day. Usual nebulizer as needed. I wrote you for additional albuterol for your nebulizer. Call and follow-up with a local primary care physician I referred you to Dr. Dwight Musa. Follow-up with a local pot annealer a lung specialist Dr. Neely. For your right hip follow-up with a local orthopedic physician Dr. Malcom parsons Disposition Disposition: Home, Self Care
[2023-09-12] MEDS: Ondansetron 4 MG/2 ML Vial IV (21:12)
[2023-09-12] MEDS: MethylPREDNISolone 125 MG/2 ML Vial IV (21:12)
[2023-09-12 21:15] VITALS: PULSE 100; RESP 20
[2023-09-12] MEDS: Albuterol 2.5 MG/3 ML VIAL.NEB. INHALATION (21:15)
[2023-09-12] MEDS: Ipratropium/Albuterol Sulfate 3 ML AMPUL.NEB INHALATION (21:15)
[2023-09-12 21:26] LABS: Absolute Lymphocyte Count 1.12 X10^3/uL (0.83-4.51); Absolute Neutrophil Count 10.4 X10^3/uL (2.0-7.7); Basophil# 0.03 X10^3/uL; Basophil% 0.2 % (0-1); Eosinophil# 0.02 X10^3/uL; Eosinophils% 0.2 % (0-5); Hematocrit 45.3 % (37-47); Hemoglobin 14.4 g/dL (12.0-15.0); Lymphocyte # 1.12 X10^3/ul (0.83-4.51); Lymphocyte % 9.2 % (19-41); Mean Corp Hgb Conc 31.8 g/dL (32-36); Mean Corpuscular Hgb 27.3 pg (27.0-32.0); Mean Platelet Vol. 10.4 fl (6.2-12.0); Monocyte# 0.59 X10^3/uL; Monocyte% 4.8 % (0-10); NRBC Flagged by Analyzer 0 % (0-5); Neutrophil # 10.41 X10^3/uL (2.7-7.7); Neutrophil % 85.2 % (47-70); Platelet Count 200 K/mm3 (150-450); RBC Distribution Width CV 14.5 % (11.6-14.6); RBC Distribution Width SD 45.8 fl (35.1-43.9); Red Blood Count 5.27 M/mm3 (4.2-5.4); White Blood Count 12.2 K/mm3 (4.4-11.0)
--- OUTSIDE RECORDS SUMMARY | 2023-09-12 21:32 | XMS RPT_ITS | CCD ---
Author Name Unknown Address [address] [place] [address] Organization [facility] Results Test Name Value Interpretation [...] BE BASED ON THE PRIMARY CLINICAL RECORDS. [facility] [employer] [facility]. provides no warranty or guarantee of the accuracy or completeness of information in this document.
--- NOTE | 2023-09-12 21:39 | CPS ---
x1 Albuterol given to pt. in ER as well
[2023-09-12 21:45] LABS: ALB/GLOB Ratio 0.9 RATIO (0.9-2.4); AST(SGOT) 17 U/L (15-37); Alanine Aminotransfer ALT/SGPT 17 U/L (13-56); Albumin, Serum 3.5 g/dL (3.2-5.0); Alkaline Phosphatase 94 U/L (45-117); Anion Gap 6 (5-15); BUN 11 mg/dL (7-18); BUN/Creat Ratio 11.8 RATIO (10-20); Calcium,Total 8.9 mg/dL (8.5-10.1); Chloride 103 mmol/L (98-107); Creatinine, Serum 0.94 mg/dL (0.55-1.02); EST Glomerular Filtration Rate 62 mL/min (>60); Est Glom Filt Rate - Afr Amer 76 mL/min (>60); Estimated Creatinine Clearance 46.39 ml/min; Globulin 3.7 g/dL (2.2-4.2); Glucose 154 mg/dL (74-106); Lipase 36 U/L (13-75); Potassium 3.6 mmol/L (3.5-5.1); Protein, Total 7.2 g/dL (6.4-8.2); Sodium Level 137 mmol/L (136-145); Troponin-I HS 24 pg/mL (3.0-54.0)
[2023-09-12 21:49] VITALS: BP 163/63; PULSE 100; RESP 21; TEMP 37.1; O2SAT 94
--- NOTE | 2023-09-12 21:50 | RAD_ITS ---
INDICATION: cough EXAMINATION/TECHNIQUE: X-RAY - XR Chest 1 View COMPARISON: August 19, 2023. FINDINGS: LINES/DEVICES: None. LUNGS: Lungs symmetrically hyperexpanded with coarsened interstitium. No consolidation, edema or effusion. No pneumothorax. MEDIASTINUM AND CARDIOVASCULAR STRUCTURES: Cardiac silhouette not enlarged. BONES AND SOFT TISSUES: Unremarkable. RAD/Chest 1 View (Portable) IMPRESSION: Chronic obstructive pulmonary disease. No radiographic evidence of acute cardiopulmonary disease. Electronically Signed: Phillip Hernadez MD at 22:52 EST ,
--- NOTE | 2023-09-12 21:55 | RAD_ITS ---
INDICATION: hip pain EXAMINATION/TECHNIQUE: X-RAY - XR Hip Unilateral with Pelvis when performed; 2-3 Views COMPARISON: CT September 21 2008 FINDINGS: PELVIC BONES: No displaced fracture, destructive or sclerotic lesions. Note that overlapping bowel shadows may however obscure fine detail. Sacroiliac joints are unremarkable. No widening of the pubic symphysis. HIPS: Normal bilateral hip alignment. Severe right hip and mild left hip osteoarthritis, with complete right hip joint space loss and femoral acetabular remodeling. No visible femoral fracture. . SOFT TISSUES: No soft tissue swelling or gas. Pelvic phleboliths and likely calcified uterine fibroid. RAD/HIP, UNI W/ Pelvis 2-3 Views IMPRESSION: Severe right hip osteoarthritis. Mild left hip osteoarthritis. No acute osseous finding. Electronically Signed: Phillip Hernadez MD at 23:11 EST ,
[2023-09-12] MEDS: Acetaminophen 500 MG Tablet 1000 MG PO (21:59)
[2023-09-12 22:51] VITALS: BP 128/57; PULSE 100; RESP 21; TEMP 37.1; O2SAT 95
== END 2023-09-12 23:03 | disposition home or self-care (01) ==
PROVIDERS: Nurse Practitioner; Emergency Provider Emergency Medicine; Visit Provider Emergency Medicine
DX: J44.1 Chronic obstructive pulmonary disease with (acute) exacerbation (principal); I10 Essential (primary) hypertension; F17.210 Nicotine dependence, cigarettes, uncomplicated; R11.0 Nausea; M12.851 Other specific arthropathies, not elsewhere classified, right hip; Z99.81 Dependence on supplemental oxygen; Z79.82 Long term (current) use of aspirin; Z79.51 Long term (current) use of inhaled steroids
CPT/HCPCS: 71045; 73502; 80053; 83690; 84484; 85025; 87631; 93005; 94640; 96374; 96375; 99284; A4216; J2405

== ENCOUNTER 2023-09-15 06:24 | Emergency (ER) | payer OTHER, SELFPAY ==
[2023-09-15 06:25] VITALS: BP 197/86; PULSE 122; RESP 24; TEMP 37.6; O2SAT 86; BMI 25.9
[2023-09-15 06:31] VITALS: O2SAT 89
--- NOTE | 2023-09-15 06:33 | ED.RN ---
While trying to triage patient, pt is yelling at nurse stating that she needed medicated immediately. This nurse attempted to explain to pt that pt needed to be put in computer and pt states I am going to before you get me in there . Pt is speaking in full sentences raising her voice at nurse. Pt complaining about wait. Informed pt that the physician would need to see her to order medications. Vitals completed, pt continues to complain.
--- NOTE | 2023-09-15 07:25 | EKG12_ITS ---
Test Reason : SOB Blood Pressure : / mmHG Vent. Rate : 098 BPM Atrial Rate : 098 BPM P-R Int : 148 ms QRS Dur : 084 ms QT Int : 344 ms P-R-T Axes : 067 039 084 degrees QTc Int : 439 ms Normal sinus rhythm Normal ECG Confirmed by Koko Viera ([id number]), editor at large KALYAN MATHEW ([id number]) on 09/16/2023 9:36:12 AM Referred By: NIKIA Confirmed By:Koko Viera
--- NOTE | 2023-09-15 07:27 | ED.VIS.DYS ---
HPI History of Present Illness Chief Complaint: Shortness of Breath Narrative Narrative: 72-year-old female past medical history of hypertension, COPD, wears 2 L of oxygen as needed presents with increasing shortness of breath and nausea, feeling sick to her stomach. Of note, she was seen on Thursday for the same thing, this was 4 days ago. She had an entire workup and started steroids at that time. However, she states she felt sick to her stomach prior to even starting a steroid burst. She does not see a primary care physician, nor does she see a systems analyst. Referrals have been made at that time. She still smokes cigarettes but states she is can get a patch tomorrow. She presents because she is still sick to her stomach and is having increasing shortness of breath as well. She presents for reevaluation. [facility] Medical History COPD (chronic obstructive pulmonary disease) COPD (chronic obstructive pulmonary disease) Smoker Home Medications [id number] 250 mg-250 mg-65 mg tablet (Excedrin Migraine) 1 tab PO DAILY PRN headache 08/19/23 [History Last Taken 08/18/23] ibuprofen 200 mg capsule 600 mg PO TID PRN pain 08/19/23 [History Last Taken 08/18/23] albuterol sulfate 2.5 mg/0.5 mL solution for nebulization 2.5 mg (0.5 mL) inhalation Q4H PRN shortness of breath or wheezing #30 ea 08/21/23 [Rx Last Taken Unknown] albuterol sulfate 2.5 mg/3 mL (0.083 %) solution for nebulization 2.5 mg (3 mL) inhalation Q4H PRN #25 vials 09/12/23 [Rx Last Taken Unknown] prednisone 20 mg tablet 40 mg (2 x 20 mg) PO DAILY 7 days #14 tabs 09/12/23 [Rx Last Taken Unknown] ondansetron 4 mg disintegrating tablet 4 mg PO Q8H PRN PRN Nausea #15 tabs 09/15/23 [Rx Last Taken Unknown] Allergy/AdvReac Type Severity Reaction Status Date / Time nitrofurantoin Allergy PT UNSURE Verified 09/15/23 06:28 [From Macrodantin] OF REACTION Family History Mother Heart disease Dementia Father Lung cancer Underlying tobacco use history concurrently. Surgical History History of bilateral tubal ligation Hx of hernia repair Social History household members: spouse Smoking Status: Heavy Smoker (>10/day) alcohol intake: never substance use type: does not use ROS ROS ED ROS Narrative Constitutional: No fever, no chills. HEENT: No sore throat. No neck pain. No loss of vision. No rhinorrhea. Cardiovascular: No chest pain. No palpitations. No pedal edema. Respiratory: No cough, positive shortness of breath and dyspnea on exertion. Abdominal: No abdominal pain. Positive nausea, feels sick to stomach . No vomiting. Genitourinary: No dysuria. No hematuria. Musculoskeletal: No myalgias. Positive hip pain. Neurologic: No headaches. No dizziness. No lightheadedness. Skin: No rash. No change in color. Psychiatric: No depression. No anxiety. EXAM Physical Exam Narrative Exam Narrative: Afebrile. Vital signs noted. HEENT: Normocephalic. Atraumatic. PERRL, EOMI. Neck soft and supple. No point tenderness or step off. Cardiovascular: Positive tachycardia no murmurs, rubs, or gallops appreciated. Respiratory: No tachypnea. Lungs clear to auscultation bilaterally. Gastrointestinal: Abdomen soft, nontender, with normoactive bowel sounds. No rebound or guarding. Neurological: Awake. Alert. Nonfocal, nonlateralizing. Skin: No rash. Normal color. No pallor. Musculoskeletal: No pedal edema. Full range of motion extremities. Movement of hips limited secondary to arthritis. Const Vital Signs: 09/15/23 06:25 09/15/23 06:31 09/15/23 07:42 Temperature 99.6 F H Temperature Source Temporal Pulse Rate 122 H 100 Respiratory Rate 24 H Respiratory Effort Respiratory Depth Respiratory Pattern Blood Pressure 197/86 H 151/60 H Blood Pressure Mean 123 90 Pulse Ox 86 89 90 Oxygen Delivery Method Venturi Mask Nasal Cannula Oxygen Flow Rate (L/min) 3 3 09/15/23 07:43 09/15/23 07:51 09/15/23 07:25 Temperature Temperature Source Pulse Rate 109 H Respiratory Rate 18 Respiratory Effort Normal Respiratory Depth Shallow Respiratory Pattern Normal Normal Blood Pressure Blood Pressure Mean Pulse Ox Oxygen Delivery Method Nasal Cannula Room Air Oxygen Flow Rate (L/min) MDM MDM MDM Narrative Medical decision making narrative: I reviewed the patient's prior visits. She has had problems with hip pain as well. She had an x-ray performed that showed no evidence of fracture. She presented with the same symptoms as today. She does have slightly elevated temperature of 99.6 so pneumonia is in the differential. I do feel that she needs a repeat chest x-ray. She was given Zofran because she was insistent that that worked the last time she was here and really wants something for her upset stomach. Repeat workup was pursued again. EKG obtained and interpreted by myself independently as normal sinus rhythm at 98 bpm without ectopy or acute ST changes. No STEMI. Initially, her blood pressure was elevated at 197/86. I ordered hydralazine, but recycling her blood pressure shows it to be lower at 151/60 so hydralazine was held. Additionally, she is on nasal cannula oxygen and satting at what I think is probably her baseline of 90%. I reviewed her laboratory work and she has a white count of 11.5, but lower than previous a few days ago. Platelet count normal at 209. Globin normal at 14.2. Electrolyte panel shows mild dehydration with sodium of 135, BUN elevated at 19 with a slight bump in her creatinine to 1.1 but I do not feel she needs to be admitted for acute kidney injury and I do not feel she needs IV fluids. Glucose is appropriately elevated at 144 with an anion gap low at 3 so I have no concern for diabetic ketoacidosis. With the thought of pancreatitis for her nausea, lipase was obtained and is normal at 36, no change from previous. I do not feel she requires CT imaging emergently for her nausea. She was administered Zofran and states she feels improved. She is sitting upwards. I will refer her to gastroenterology, Dr. Marroquin. She was given a prescription for 15 Zofran ODT's to help with her nausea over the next few days. She may want to start [id number] Prilosec or Pepcid as needed. However, I do not feel she requires observation at this time. I reviewed her respiratory swabs and they are negative for COVID, influenza, and RSV. Additionally, chest x-ray in 1 view obtained and interpreted by myself independently shows no pneumonia, no pneumothorax. I reviewed the radiology report which confirms my independent interpretation and there is no significant change when compared to previous chest x-ray few days ago. While I do not feel antibiotics are indicated, I feel she can be discharged to follow-up. She was referred back to the same primary care physician, systems analyst, and I did add referral to gastroenterology in the event that she will require upper endoscopy for her continued nausea. Disposition is discharged home in stable condition. History & Record Review Discussion w/independent historian: Patient and Family Lab Data Attestation: I reviewed the patient's lab results. Labs: Laboratory Results - last 24 hr 09/15/23 07:37 WBC 11.5 H RBC 5.16 Hgb 14.2 Hct 45.0 MCV 87.2 MCH 27.5 MCHC 31.6 L RDW Std Deviation 45.5 H RDW Coeff of Mariama 14.1 Plt Count 209 MPV 9.7 Immature Gran % (Auto) 0.600 Neut % (Auto) 81.4 H Lymph % (Auto) 8.7 L Bucks % (Auto) 9.2 Eos % (Auto) 0.0 Baso % (Auto) 0.1 Absolute Neuts (auto) 9.4 H Absolute Lymphs (auto) 1.00 Nucleated RBC % 0 Sodium 135 L Potassium 4.3 Chloride 102 Carbon Dioxide 30.0 Anion Gap 3 L BUN 19 H Creatinine 1.10 H Estim Creat Clear Calc 39.15 Est GFR (MDRD) Af Amer 63 Est GFR (MDRD) Non-Af 52 L BUN/Creatinine Ratio 17.3 Glucose 144 H Calcium 9.2 Lipase 36 Radiography Diagnostic Testing: Clinical Impression(s) from Imaging Studies Chest X-Ray 09/15/23 08:15 IMPRESSION: No radiographic evidence of acute cardiopulmonary disease and unchanged when compared to 09/12/2023. Electronically Signed: Jake Ford MD at 8:27 EST , Discharge Plan Triage Chief Complaint: Shortness of Breath ED Provider: Jake Flanagan Dx/Rx/DC Orders Clinical Impression: COPD exacerbation, Nausea Instructions: ED COPD Flare Prescriptions: New ondansetron 4 mg tablet,disintegrating 4 mg PO Q8H PRN PRN (Reason: Nausea) Qty: 15 0RF No Action Excedrin Migraine 250-250-65 mg tablet 1 tab PO DAILY PRN (Reason: headache) ibuprofen 200 mg capsule 600 mg PO TID PRN (Reason: pain) albuterol sulfate 2.5 mg/0.5 mL solution for nebulization 2.5 mg inhalation Q4H PRN (Reason: shortness of breath or wheezing) Qty: 30 0RF prednisone 20 mg tablet 40 mg PO DAILY 7 Days Qty: 14 0RF albuterol sulfate 2.5 mg /3 mL (0.083 %) solution for nebulization 2.5 mg inhalation Q4H PRN Qty: 25 0RF Rx Instructions: Use q4 hours and PRN for wheezing Primary Care Provider: Care Physician,No Primary Referrals: Bar Neely DO [Med Staff - Active Staff] - As soon as possible Dwight Musa MD [Med Staff - Clam Picker] - As soon as possible Carlos Marroquin DO [Med Staff - Active Staff] - As Needed Care Physician,No Primary [Primary Care Provider] - Activity Restrictions/Additional Instructions: Finish off your prednisone burst. Follow-up with a primary care provider, systems analyst, and gastroenterology. Disposition Disposition: Home, Self Care
[2023-09-15] MEDS: Ondansetron 4 MG/2 ML Vial IV (07:37)
[2023-09-15 07:42] VITALS: BP 151/60; PULSE 100; O2SAT 90
[2023-09-15 07:43] VITALS: O2SAT 92
--- NOTE | 2023-09-15 07:46 | ED.RN ---
Nurse held hydralizine. BP 151/60 HR 98
[2023-09-15] MEDS: Ipratropium/Albuterol Sulfate 3 ML AMPUL.NEB INHALATION (07:48)
[2023-09-15 07:51] VITALS: PULSE 109; RESP 18
[2023-09-15 07:57] LABS: Absolute Neutrophil Count 9.4 X10^3/uL (2.0-7.7); Basophil# 0.01 X10^3/uL; Basophil% 0.1 % (0-1); Hemoglobin 14.2 g/dL (12.0-15.0); Lymphocyte % 8.7 % (19-41); Mean Corp Hgb Conc 31.6 g/dL (32-36); Mean Corpuscular Hgb 27.5 pg (27.0-32.0); Mean Corpuscular Volume 87.2 fL (81-99); Mean Platelet Vol. 9.7 fl (6.2-12.0); Monocyte# 1.06 X10^3/uL; Monocyte% 9.2 % (0-10); NRBC Flagged by Analyzer 0 % (0-5); Neutrophil # 9.37 X10^3/uL (2.7-7.7); Neutrophil % 81.4 % (47-70); Platelet Count 209 K/mm3 (150-450); RBC Distribution Width CV 14.1 % (11.6-14.6); RBC Distribution Width SD 45.5 fl (35.1-43.9); Red Blood Count 5.16 M/mm3 (4.2-5.4); White Blood Count 11.5 K/mm3 (4.4-11.0)
[2023-09-15 08:13] LABS: Anion Gap 3 (5-15); BUN 19 mg/dL (7-18); BUN/Creat Ratio 17.3 RATIO (10-20); Calcium,Total 9.2 mg/dL (8.5-10.1); Chloride 102 mmol/L (98-107); EST Glomerular Filtration Rate 52 mL/min (>60); Est Glom Filt Rate - Afr Amer 63 mL/min (>60); Estimated Creatinine Clearance 39.15 ml/min; Glucose 144 mg/dL (74-106); Lipase 36 U/L (13-75); Potassium 4.3 mmol/L (3.5-5.1); Sodium Level 135 mmol/L (136-145)
--- NOTE | 2023-09-15 08:15 | RAD_ITS ---
EXAM: XR CHEST, 1 VIEW CLINICAL INDICATION: shortness of breath TECHNIQUE: Frontal view of the chest. COMPARISON: 09/12/2023. FINDINGS: LUNGS AND PLEURAL SPACES: Unremarkable. No consolidation or edema. No pneumothorax. No effusion. HEART: Unremarkable. Cardiac silhouette not enlarged. MEDIASTINUM: Central airways and mediastinal contour are unremarkable. BONES/JOINTS: Unremarkable. No acute fracture. SOFT TISSUES: Unremarkable. RAD/Chest 1 View (Portable) IMPRESSION: No radiographic evidence of acute cardiopulmonary disease and unchanged when compared to 09/12/2023. Electronically Signed: Jake Ford MD at 8:27 EST ,
--- OUTSIDE RECORDS SUMMARY | 2023-09-15 08:19 | XMS RPT_ITS | CCD ---
Author Name Unknown Address [address] [place] [address] Organization [facility] Results Test Name Value Interpretation [...] BE BASED ON THE PRIMARY CLINICAL RECORDS. [facility] [employer] [facility]. provides no warranty or guarantee of the accuracy or completeness of information in this document.
[2023-09-15 10:21] VITALS: BP 120/60; PULSE 94; RESP 18; TEMP 37.1; O2SAT 93
== END 2023-09-15 10:27 | disposition home or self-care (01) ==
PROVIDERS: Emergency Provider Emergency Medicine; Visit Provider Emergency Medicine
DX: J44.1 Chronic obstructive pulmonary disease with (acute) exacerbation (principal); F17.210 Nicotine dependence, cigarettes, uncomplicated; I10 Essential (primary) hypertension; E86.0 Dehydration; R11.0 Nausea; Z98.51 Tubal ligation status
CPT/HCPCS: 71045; 80048; 83690; 85025; 87631; 93005; 94640; 96374; 99285; J7050; A4216; J2405

== ENCOUNTER 2023-09-18 22:21 | Emergency (ER) | payer OTHER, SELFPAY ==
[2023-09-18 22:22] VITALS: BP 154/65; PULSE 101; RESP 16; TEMP 36.6; O2SAT 100
--- NOTE | 2023-09-18 22:24 | RAD_ITS ---
STUDY: X-RAY CHEST REASON FOR EXAM: Female, 72 years old. Wheezing, cough and dyspnea TECHNIQUE: PA and lateral views of the chest. COMPARISON: 09/15/2023 FINDINGS: The lungs are clear and expanded. There is no demonstrated pleural abnormality. Normal size heart. Normal mediastinum and tawana. Normal visualized pulmonary arteries. Normal visualized aortic arch and descending thoracic aorta. Normal visualized thoracic spine. Normal visualized ribs, clavicles, and shoulders. There is no demonstrated abnormality of the visualized soft tissue structures of the upper abdomen. RAD/Chest PA and Lateral IMPRESSION: Normal x-ray examination of the chest. Electronically Signed: Christos Tao MD at 0:03 EST ,
--- NOTE | 2023-09-18 22:30 | ED.RN ---
while attempting to triage the pt and ask questions you know me . pt and were rude and difficult.
--- NOTE | 2023-09-18 22:31 | ED.RN ---
THIS DOOR WORKER TOOK PT FROM TRIAGE TO PT ROOM. UPON ENTERING ROOM PT WAS VERY DEMANDING AND AGGRESSIVE. DEMANDED BLANKETS AND PILLOWS, BUT RESPIRATORY WAS IN ROOM WAITING TO DO EKG. I TRIED GETTING PT FROM WHEELCHAIR TO BED, AND PT THREW HERSELF ONTO BED AFTER STANDING. I HELPED HER LIFT HER LEGS ONTO BED. SAID SHE WAS HERE A COUPLE DAYS AGO FOR SAME THING AND WE DID NOTHING .
--- NOTE | 2023-09-18 22:38 | EKG12_ITS ---
Test Reason : CP Blood Pressure : / mmHG Vent. Rate : 101 BPM Atrial Rate : 101 BPM P-R Int : 146 ms QRS Dur : 088 ms QT Int : 340 ms P-R-T Axes : 051 037 083 degrees QTc Int : 440 ms Sinus tachycardia Otherwise normal ECG Confirmed by Koko Viera ([id number]), make up editor [place] ([id number]) on 09/21/2023 2:15:55 PM Referred By: UG Confirmed By:Koko Viera
[2023-09-18] MEDS: Ipratropium/Albuterol Sulfate 3 ML AMPUL.NEB INHALATION (22:40)
--- NOTE | 2023-09-18 22:41 | EDS_ITS ---
HPI History of Present Illness Chief Complaint: Chest Pain Detail of Chief Complaint: Shortness of breath is the chief complaint Informant: patient and spouse/S.O. Onset/Context/Timing Onset: Weeks Context: Sudden Onset Timing: Continuous and Waxes and wanes Quality: Shortness of breath and wheezing with cough Location: Respiratory Current Severity: Mild Maximum Severity: Moderate Worsened by: Activity Relieved by: Nothing Associated Symptoms Associated Symptoms: Productive cough that is unchanged Narrative Narrative: Patient is a 72-year-old woman. She was seen on September 11 in September 14 in the emergency department for COPD exacerbation. Patient continues to smoke. She has 6 cigarettes a day. She is presently on prednisone. She told me that she needs a breathing treatment. Patient denies headache, visual, ocular auditory symptoms. She does endorse mild congestion. She denies sore throat. She denies chest discomfort. She does report shortness of breath, dyspnea on exertion. She denies orthopnea or PND. She states she has difficulty walking because of a bad hip . Review of prior records indicates patient has osteo arthritis of the right hip. She denies history of VTE. She denies leg pain, swelling or discoloration. She denies ill contacts. Prior similar symptoms: Yes Recent Illness/Hospitalization: Yes PFSH PFSH Medical History COPD (chronic obstructive pulmonary disease) COPD (chronic obstructive pulmonary disease) Smoker Home Medications [id number]-[id number] 250 mg-250 mg-65 mg tablet (Excedrin Migraine) 1 tab PO DAILY PRN headache 08/19/23 [History Last Taken 08/18/23] ibuprofen 200 mg capsule 600 mg PO TID PRN pain 08/19/23 [History Last Taken 08/18/23] albuterol sulfate 2.5 mg/0.5 mL solution for nebulization 2.5 mg (0.5 mL) i nhalation Q4H PRN shortness of breath or wheezing #30 ea 08/21/23 [Rx Last Taken Unknown] albuterol sulfate 2.5 mg/3 mL (0.083 %) solution for nebulization 2.5 mg (3 mL) inhalation Q4H PRN #25 vials 09/12/23 [Rx Last Taken Unknown] prednisone 20 mg tablet 40 mg (2 x 20 mg) PO DAILY 7 days #14 tabs 09/12/23 [Rx Last Taken Unknown] ondansetron 4 mg disintegrating tablet 4 mg PO Q8H PRN PRN Nausea #15 tabs 09/15/23 [Rx Last Taken Unknown] ondansetron 4 mg disintegrating tablet 4 mg PO Q8H PRN PRN Nausea #10 tabs 09/19/23 [Rx Last Taken Unknown] Allergy/AdvReac Type Severity Reaction Status Date / Time nitrofurantoin Allergy PT UNSURE Verified 09/18/23 22:22 [From Macrodantin] OF REACTION Family History Mother Heart disease Dementia Father Lung cancer Underlying tobacco use history concurrently. Surgical History History of bilateral tubal ligation Hx of hernia repair Social History household members: spouse Smoking Status: Heavy Smoker (>10/day) alcohol intake: never substance use type: does not use ROS ROS ED Constitutional Constitutional ED: Denies chills, fever(s), subjective, sweats or weight loss Eyes Eyes: Denies blurry vision or change in vision ENT ENT ED: Denies ear pain, rhinorrhea or sore throat Cardiovascular Cardiovascular: Denies chest pain, orthopnea, palpitations or paroxysmal nocturnal dyspnea Respiratory/Chest Respiratory/Chest: Reports cough, dyspnea, dyspnea on exertion and sputum; Denies orthopnea or paroxysmal nocturnal dyspnea Gastrointestinal Gastrointestinal: Denies abdominal pain, melena, nausea or vomiting Genitourinary Genitourinary ED: Denies dysuria, hematuria or urinary frequency Musculoskeletal Musculoskeletal: Denies arthralgias or myalgias Integumentary Denies rash Neurologic Neurologic: Denies headache(s) Endocrine Endocrinology: Denies cold intolerance or heat intolerance EXAM Physical Exam Const Vital Signs: 09/18/23 22:22 09/18/23 22:58 09/18/23 22:59 Temperature 98 F Temperature Source Temporal Pulse Rate 101 H 84 Respiratory Rate 16 24 H Respiratory Effort Respiratory Pattern Normal Blood Pressure 154/65 H Blood Pressure Mean 94 Pulse Ox 100 93 Oxygen Delivery Method Room Air Nasal Cannula Oxygen Flow Rate (L/min) 3 09/18/23 23:05 Temperature Temperature Source Pulse Rate Respiratory Rate Respiratory Effort Normal Non-Labored Respiratory Pattern Blood Pressure Blood Pressure Mean Pulse Ox Oxygen Delivery Method Oxygen Flow Rate (L/min) Positive well nourished, well developed and obese General Appearance ED: well developed and NAD; Negative for cyanotic, diaphoretic or pallor Nutritional Appearance: obese HEENT Reports moist mucous membranes HEENT Narrative: Head is atraumatic and normocephalic. Ears normal. Nares patent. Posterior pharynx normal. Tobacco odor to her breath. Eyes PERRL and EOMs intact bilaterally General Eye ED: Negative for pale conjunctiva or scleral icterus Neck no lymphadenopathy, supple and no JVD Chest Wall inspection of chest normal and palpation of chest normal Resp normal respiratory effort and No clear to auscultation bilaterally Resp Narrative: Patient with high pitched wheezes and increased expiratory phase. Auscultation: wheezes expiratory wheezes and throughout Cardio regular rate, regular rhythm, S1 normal heart sound, S2 normal heart sound and no murmurs GI normal to inspection, nondistended, normoactive bowel sounds, non-tender, non- distended and no masses; Negative for hepatosplenomegaly Extremity General Extremety ED: Yes edema General Extremity: edema Neuro oriented x3, CN's II-XII intact bilaterally and no sensory deficits noted Sensorium / Orientation: alert Psych mental status grossly normal Attitude: agitated Skin no rashes or lesions noted General Skin Exam: Negative for jaundice or pallor MDM MDM MDM Narrative Medical decision making narrative: Prior records and laboratory studies and images were reviewed. Since patient was seen 2 days ago and has similar symptoms suspect this is COPD exacerbation due to noncompliance. EKG was obtained per protocol and reveals sinus tachycardia is unchanged from prior. Will treat with Atrovent and albuterol as well as prednisone. If there is no improvement will obtain x-ray. As previously stated this was not a pain since she had imaging earlier this week x 2. Radiography Chest X-Ray - ED: 2 View and Read by ED Physician (There is chronic changes noted. The PA is significantly rotated which limits interpretation. There is no infiltrate, effusion or pneumothorax. Mediastinum is normal. Osseous structures are unremarkable. There is no acute process. This is independent reviewed interpreted by me.) Diagnostic Testing: Clinical Impression(s) from Imaging Studies Chest X-Ray 09/18/23 22:24 IMPRESSION: Normal x-ray examination of the chest. Electronically Signed: Christos Tao MD at 0:03 EST , Rhythm Strip Rhythm Strip: Sinus Rhythm Rate: 99 Ectopy: None EKG Initial EKG: Attestation: I personally reviewed and interpreted this EKG as follows: Interpretation: Sinus Tachycardia (Rate of 101. The EKG is otherwise unremarkable. The EKG is unchanged from September 14. MA interval is 146 ms. QRS duration 88 ms. QT duration is 340 ms. [place] is normal.) Prior: Unchanged Treatment and Re-Evaluation :: Patient was reassessed at 136. Patient is no longer wheezing. Patient requesting an antiemetic. Discharge Plan Triage Chief Complaint: Chest Pain ED Provider: Angel León Dx/Rx/DC Orders Clinical Impression: COPD with acute exacerbation, Nausea, Acute bronchospasm, Tobacco use Instructions: ED COPD Flare Prescriptions: New ondansetron [ondansetron] 4 mg tablet,disintegrating 4 mg PO Q8H PRN PRN (Reason: Nausea) Qty: 10 0RF No Action Excedrin Migraine 250-250-65 mg tablet 1 tab PO DAILY PRN (Reason: headache) ibuprofen 200 mg capsule 600 mg PO TID PRN (Reason: pain) albuterol sulfate 2.5 mg/0.5 mL solution for nebulization 2.5 mg inhalation Q4H PRN (Reason: shortness of breath or wheezing) Qty: 30 0RF prednisone 20 mg tablet 40 mg PO DAILY 7 Days Qty: 14 0RF albuterol sulfate 2.5 mg /3 mL (0.083 %) solution for nebulization 2.5 mg inhalation Q4H PRN Qty: 25 0RF Rx Instructions: Use q4 hours and PRN for wheezing ondansetron 4 mg tablet,disintegrating 4 mg PO Q8H PRN PRN (Reason: Nausea) Qty: 15 0RF Primary Care Provider: Dwight Musa Referrals: Dwight Musa MD [Primary Care Provider] - 3-5 Days Care Physician,No Primary [Non-Staff] - Disposition Disposition: Home, Self Care
[2023-09-18] MEDS: Albuterol 2.5 MG/3 ML VIAL.NEB. INHALATION ×3 (22:57)
[2023-09-18 22:58] VITALS: PULSE 84; RESP 24
[2023-09-18] MEDS: predniSONE 20 MG Tablet 40 MG PO (22:58)
[2023-09-18 22:59] VITALS: O2SAT 93
[2023-09-18 23:04] VITALS: BMI 27.6
--- OUTSIDE RECORDS SUMMARY | 2023-09-18 23:25 | XMS RPT_ITS | CCD ---
Author Name Unknown Address [address] [place] [address] Organization [facility] Results Test Name Value Interpretation [...] BE BASED ON THE PRIMARY CLINICAL RECORDS. [facility]. provides no warranty or guarantee of the accuracy or completeness of information in this document.
--- NOTE | 2023-09-19 00:37 | ED.RN ---
PT RUDE AND BELLIGERENT, YELLING AT STAFF STATING NOBODY IS DOING ANYTHING FOR ME . PT THREATENS TO WALK OUT OF DEPT IF THE DOCTOR DOESN'T COME BACK RIGHT NOW . THIS RN EXPLAINED MD WAS WITH A CRITICAL PT AND WOULD RETURN TO SEE HER AGAIN SOON POSSIBLE. PT STATES I DON'T CARE ABOUT ANYBODY ELSE, I'M THE MOST IMPORTANT . PT RESISTANT TO CARE, NON-COMPLIANT WITH KEEPING BREATHING TX UP TO MOUTH, STATES THIS IS STUPID . PT ANGRY WITH CXR, STATES I JUST HAD ONE OF THOSE . PT DIFFICULT TO REDIRECT.
[2023-09-19 01:00] VITALS: BP 115/95; PULSE 92; RESP 14; O2SAT 98
[2023-09-19] MEDS: Ondansetron ODT 4 MG Tablet PO (01:45)
[2023-09-19 01:50] VITALS: BP 112/74; PULSE 91; RESP 18; TEMP 36.1; O2SAT 96
== END 2023-09-19 01:52 | disposition home or self-care (01) ==
PROVIDERS: Emergency Provider Emergency Medicine; PCP Family Medicine; Visit Provider Emergency Medicine
DX: J44.1 Chronic obstructive pulmonary disease with (acute) exacerbation (principal); R11.0 Nausea; J98.01 Acute bronchospasm; F17.210 Nicotine dependence, cigarettes, uncomplicated; Z79.82 Long term (current) use of aspirin
CPT/HCPCS: 71046; 93005; 94640; 99284

== ENCOUNTER 2023-09-25 02:59 | Emergency (ER) | payer OTHER, SELFPAY ==
[2023-09-25 03:01] VITALS: BP 163/62; PULSE 89; RESP 16; TEMP 36.8; O2SAT 92; BMI 25.1
--- OUTSIDE RECORDS SUMMARY | 2023-09-25 03:29 | XMS RPT_ITS | CCD ---
Author Name Unknown Address [address] [place] [address] Organization [facility] Results Test Name Value Interpretation [...] ON THE PRIMARY CLINICAL RECORDS. [facility] [employer] [facility]. provides no warranty or guarantee of the accuracy or completeness of information in this document.
[2023-09-25] MEDS: 0.9% Normal Saline (1000mL) 1,000 ML 999 ML IV (03:51)
[2023-09-25] MEDS: Ondansetron 4 MG/2 ML Vial IV (03:51)
[2023-09-25 03:59] LABS: Absolute Lymphocyte Count 1.31 X10^3/uL (0.83-4.51); Absolute Neutrophil Count 17.7 X10^3/uL (2.0-7.7); Basophil# 0.05 X10^3/uL; Basophil% 0.2 % (0-1); Eosinophil# 0.01 X10^3/uL; Hematocrit 37.5 % (37-47); Hemoglobin 11.9 g/dL (12.0-15.0); Lymphocyte # 1.31 X10^3/ul (0.83-4.51); Lymphocyte % 6.5 % (19-41); Mean Corp Hgb Conc 31.7 g/dL (32-36); Mean Corpuscular Hgb 26.3 pg (27.0-32.0); Mean Corpuscular Volume 82.8 fL (81-99); Mean Platelet Vol. 9.6 fl (6.2-12.0); Monocyte# 0.89 X10^3/uL; Monocyte% 4.4 % (0-10); NRBC Flagged by Analyzer 0 % (0-5); Neutrophil # 17.68 X10^3/uL (2.7-7.7); Neutrophil % 87.7 % (47-70); Platelet Count 279 K/mm3 (150-450); RBC Distribution Width CV 14.4 % (11.6-14.6); RBC Distribution Width SD 43.5 fl (35.1-43.9); Red Blood Count 4.53 M/mm3 (4.2-5.4); White Blood Count 20.2 K/mm3 (4.4-11.0)
[2023-09-25 04:19] LABS: AST(SGOT) 14 U/L (15-37); Alanine Aminotransfer ALT/SGPT 20 U/L (13-56); Albumin, Serum 2.2 g/dL (3.2-5.0); Alkaline Phosphatase 89 U/L (45-117); Anion Gap 9 (5-15); BUN 26 mg/dL (7-18); BUN/Creat Ratio 16.4 RATIO (10-20); Bilirubin, Direct 0.28 mg/dL (0.00-0.30); Calcium,Total 8.2 mg/dL (8.5-10.1); Chloride 94 mmol/L (98-107); Creatinine, Serum 1.59 mg/dL (0.55-1.02); EST Glomerular Filtration Rate 34 mL/min (>60); Est Glom Filt Rate - Afr Amer 41 mL/min (>60); Estimated Creatinine Clearance 26.66 ml/min; Globulin 3.7 g/dL (2.2-4.2); Glucose 105 mg/dL (74-106); Lipase 35 U/L (13-75); Potassium 4.3 mmol/L (3.5-5.1); Protein, Total 5.9 g/dL (6.4-8.2); Sodium Level 131 mmol/L (136-145)
[2023-09-25 05:00] VITALS: BP 144/61; PULSE 81; RESP 19; O2SAT 98
--- NOTE | 2023-09-25 05:01 | EDS_ITS ---
HPI History of Present Illness Chief Complaint: General Illness Informant: patient and spouse/S.O. Narrative Narrative: Patient is a 72-year-old female with past medical history of COPD. She states that she has not eaten for the last 5 to 7 days. She states this is not because is difficult to swallow but that when she tries to eat that everything she tries taste sweet which she does not like and therefore refuses to swallow and spit the food out. She states that there is been no recent change in medication other than the fact she just stopped her prednisone 1 or 2 days ago. She denies any abdominal pain fevers or chills diarrhea or dysuria. She denies any difficulty swallowing or sore throat. However with concern that she may be dehydrated or malnourished she presents for evaluation [facility] Medical History COPD (chronic obstructive pulmonary disease) COPD (chronic obstructive pulmonary disease) Smoker Home Medications zposjjj-lnuldfchlnikq-owjnqwdb 250 mg-250 mg-65 mg tablet (Excedrin Migraine) 1 tab PO DAILY PRN headache 08/19/23 [History Last Taken 08/18/23] ibuprofen 200 mg capsule 600 mg PO TID PRN pain 08/19/23 [History Last Taken 08/18/23] albuterol sulfate 2.5 mg/0.5 mL solution for nebulization 2.5 mg (0.5 mL) inhalation Q4H PRN shortness of breath or wheezing #30 ea 08/21/23 [Rx Last Taken Unknown] albuterol sulfate 2.5 mg/3 mL (0.083 %) solution for nebulization 2.5 mg (3 mL) inhalation Q4H PRN #25 vials 09/12/23 [Rx Last Taken Unknown] prednisone 20 mg tablet 40 mg (2 x 20 mg) PO DAILY 7 days #14 tabs 09/12/23 [Rx Last Taken Unknown] ondansetron 4 mg disintegrating tablet 4 mg PO Q8H PRN PRN Nausea #15 tabs 09/15/23 [Rx Last Taken Unknown] ondansetron 4 mg disintegrating tablet 4 mg PO Q8H PRN PRN Nausea #10 tabs 09/19/23 [Rx Last Taken Unknown] nystatin 100,000 unit/mL oral suspension 5 ml PO 4X/DAY 14 days #280 mL 09/25/23 [Rx Last Taken Unknown] Allergy/AdvReac Type Severity Reaction Status Date / Time nitrofurantoin Allergy PT UNSURE Verified 09/18/23 22:22 [From Macrodantin] OF REACTION Family History Mother Heart disease Dementia Father Lung cancer Underlying tobacco use history concurrently. Surgical History History of bilateral tubal ligation Hx of hernia repair Social History household members: spouse Smoking Status: Heavy Smoker (>10/day) alcohol intake: never substance use type: does not use ROS ROS ED Constitutional Constitutional ED: Denies chills or fever(s) ENT ENT ED: Denies rhinorrhea or sore throat Cardiovascular Cardiovascular: Denies chest pain Respiratory/Chest Respiratory/Chest: Denies cough or dyspnea Gastrointestinal Gastrointestinal: Denies abdominal pain, diarrhea, nausea or vomiting Genitourinary Genitourinary ED: Denies dysuria Musculoskeletal Musculoskeletal: Denies myalgias Integumentary Denies rash Neurologic Neurologic: Denies headache(s) Hematologic/Lymphatic Hematologic/Lymphatic: Denies easy bleeding or easy bruising EXAM Physical Exam Const Vital Signs: 09/25/23 03:01 09/25/23 03:07 09/25/23 05:00 Temperature 98.3 F Temperature Source Temporal Pulse Rate 89 81 Respiratory Rate 16 19 H Respiratory Pattern Normal Blood Pressure 163/62 H 144/61 H Blood Pressure Mean 95 88 Pulse Ox 92 98 Oxygen Delivery Method Nasal Cannula Nasal Cannula Oxygen Flow Rate (L/min) 2 2 09/25/23 05:30 09/25/23 05:12 Temperature 98.3 F Temperature Source Pulse Rate 81 83 Respiratory Rate 16 24 H Respiratory Pattern Tachypnea Blood Pressure 144/61 H Blood Pressure Mean 88 Pulse Ox 96 Oxygen Delivery Method Oxygen Flow Rate (L/min) Positive well nourished and well developed General Appearance ED: well developed; Negative for pallor HEENT HEENT Narrative: Mucous membranes are slightly dry and tacky Patient does have scant amount of white pustule exudates in the buccal mucosa concerning for oral thrush Otherwise no airway edema or compromise or change in voice or difficulty with secretions or trismus. Eyes PERRL and EOMs intact bilaterally General Eye ED: Negative for scleral icterus Neck supple Resp normal respiratory effort Resp Narrative: Breath sounds are diminished throughout with expiratory wheezing diffusely consistent with history of COPD but no signs of respiratory distress Cardio regular rate and regular rhythm GI normal to inspection, nondistended, normoactive bowel sounds, non-tender, non- distended and no masses GI Narrative: No voluntary guarding or rigidity or pulsatile mass No distention or increased tympany No pain with palpation Auscultation: normoactive bowel sounds Palpation: soft Extremity normal to inspection Neuro oriented x3 and CN's II-XII intact bilaterally Sensorium / Orientation: alert Psych mental status grossly normal Skin no rashes or lesions noted Skin Narrative: Skin turgor is slightly increased General Skin Exam: Negative for jaundice or pallor MDM MDM MDM Narrative Medical decision making narrative: Patient presented to the ER hypertensive but otherwise with stable vitals. She reported she has not been eating for multiple days but this is not because she has a sore throat or difficulty swallowing but simply because there is derangement in her taste. Physical exam shows changes concerning for mild dehydration but as there is also concern for malnutrition acute kidney injury or severe electrolyte abnormality basic labs were obtained. Labs show changes consistent with mild malnutrition such as slightly decreased protein and albumin levels. Patient's electrolytes were not clinically significant and kidney function was slightly above her baseline consistent with mild dehydration. The patient does have a 20,000 white count but as she recently finished steroids this is most likely the cause especially as she has no complaint of pain and is afebrile and actually hypertensive not hypo-. Therefore this time after she was given IV hydration as well as viscous lidocaine and Zofran she remained hemodynamically stable without signs of respiratory distress or difficulty with secretions. I do not feel there is need for imaging study at this time. As patient was tased arrangement could be related to her thrush which may have been caused by her recent steroid use to be placed on nystatin. However as she is not showing acute kidney injury or severe dehydration or severe electro abnormality there is no need for admission and she can otherwise be discharged and follow-up on an outpatient basis History & Record Review Discussion w/independent historian: Patient and Significant other Lab Data Attestation: I reviewed the patient's lab results. Labs: Laboratory Results - last 24 hr 09/25/23 03:50 WBC 20.2 H RBC 4.53 Hgb 11.9 L Hct 37.5 MCV 82.8 MCH 26.3 L MCHC 31.7 L RDW Std Deviation 43.5 RDW Coeff of Mariama 14.4 Plt Count 279 MPV 9.6 Immature Gran % (Auto) 1.200 H Neut % (Auto) 87.7 H Lymph % (Auto) 6.5 L Kidder % (Auto) 4.4 Eos % (Auto) 0.0 Baso % (Auto) 0.2 Absolute Neuts (auto) 17.7 H Absolute Lymphs (auto) 1.31 Nucleated RBC % 0 Sodium 131 L Potassium 4.3 Chloride 94 L Carbon Dioxide 28.0 Anion Gap 9 BUN 26 H Creatinine 1.59 H Estim Creat Clear Calc 26.66 Est GFR (MDRD) Af Amer 41 L Est GFR (MDRD) Non-Af 34 L BUN/Creatinine Ratio 16.4 Glucose 105 Calcium 8.2 L Total Bilirubin 0.60 Direct Bilirubin 0.28 AST 14 L ALT 20 Alkaline Phosphatase 89 Total Protein 5.9 L Albumin 2.2 L Globulin 3.7 Lipase 35 Discharge Plan Triage Chief Complaint: General Illness ED Provider: Jacinto Vaughan Dx/Rx/DC Orders Clinical Impression: Oral thrush, Malnutrition of mild degree, COPD with acute exacerbation, Mild dehydration Instructions: Kely Infection: Thrush, ED Feeding Disorder Prescriptions: New nystatin 100,000 unit/mL suspension 5 ml PO 4X/DAY 14 Days Qty: 280 0RF No Action Excedrin Migraine 250-250-65 mg tablet 1 tab PO DAILY PRN (Reason: headache) ibuprofen 200 mg capsule 600 mg PO TID PRN (Reason: pain) albuterol sulfate 2.5 mg/0.5 mL solution for nebulization 2.5 mg inhalation Q4H PRN (Reason: shortness of breath or wheezing) Qty: 30 0RF prednisone 20 mg tablet 40 mg PO DAILY 7 Days Qty: 14 0RF albuterol sulfate 2.5 mg /3 mL (0.083 %) solution for nebulization 2.5 mg inhalation Q4H PRN Qty: 25 0RF Rx Instructions: Use q4 hours and PRN for wheezing ondansetron 4 mg tablet,disintegrating 4 mg PO Q8H PRN PRN (Reason: Nausea) Qty: 15 0RF ondansetron [ondansetron] 4 mg tablet,disintegrating 4 mg PO Q8H PRN PRN (Reason: Nausea) Qty: 10 0RF Primary Care Provider: Dwight Musa Referrals: Dwight Msua MD [Primary Care Provider] - Activity Restrictions/Additional Instructions: Your labs only show changes consistent with mild malnutrition. Your exam shows changes to the back of your throat indicating you have thrush. Take the nystatin as directed to help resolve this and I feel that with the resolution of the infection your taste derangement should resolve as well. Return to the ER should you have any further concerns Disposition Disposition: Home, Self Care Discharge Date/Time: 09/25/23 05:36
[2023-09-25 05:12] VITALS: PULSE 83; RESP 24
[2023-09-25] MEDS: Albuterol 2.5 MG/3 ML VIAL.NEB. INHALATION (05:12)
[2023-09-25] MEDS: Ipratropium/Albuterol Sulfate 3 ML AMPUL.NEB INHALATION (05:17)
[2023-09-25 05:30] VITALS: BP 144/61; PULSE 81; RESP 16; TEMP 36.8; O2SAT 96
--- NOTE | 2023-09-25 06:07 | CPS ---
x1 Albuterol given to pt. in ER as well
== END 2023-09-25 05:36 | disposition home or self-care (01) ==
PROVIDERS: Emergency Provider Emergency Medicine; PCP Family Medicine; Visit Provider Emergency Medicine
DX: B37.0 Candidal stomatitis (principal); E44.1 Mild protein-calorie malnutrition; J44.1 Chronic obstructive pulmonary disease with (acute) exacerbation; E86.0 Dehydration; F17.200 Nicotine dependence, unspecified, uncomplicated; Z98.51 Tubal ligation status
CPT/HCPCS: 80048; 80076; 83690; 85025; 94640; 96361; 96374; 99283; J7030; A4216; J2405

== ENCOUNTER → 2023-11-06 | Outpatient (CLI) | payer OTHER, SELFPAY ==
--- NOTE | 2023-11-06 12:25 | CPS ---
PATIENT WAS UNABLE TO PERFORM DLCO MANUEVER THEREFORE NO RESULTS ABLE TO BE OBTAINED
== END | disposition home or self-care (01) ==
PROVIDERS: PCP Family Medicine; Referring Provider Internal Medicine Critical Care Medicine; Visit Provider Internal Medicine Critical Care Medicine
DX: J44.9 Chronic obstructive pulmonary disease, unspecified (principal)
CPT/HCPCS: 94060; 94726

== ENCOUNTER → 2023-11-10 | Outpatient (CLI) | payer OTHER, SELFPAY ==
[2023-11-10 13:15] VITALS: PULSE 103; PULSE 84; PULSE 95; PULSE 97; O2SAT 93; O2SAT 95
--- NOTE | 2023-11-10 13:33 | CPS ---
2 minutes and 26 seconds into walk pt needed to sit down due to hip pain. Pt did not start walk again until minute 5. Pt rated exertion level at 14 only because of the hip pain. Pt denied having any S.O.B pre walk or during the walk. Pt also states she felt her breathing was normal post walk and again denied any S.O.B
--- NOTE | 2023-11-13 13:31 | WT_ITS ---
PSN 6 Minute Walk Test 6 Minute Walk Test 6 Minute Walk Test: 6 Minute Walk Test PSN:6-Minute Walk Test Start: 11/10/23 13:30 Freq: Status: Active Protocol: [id number].[id number] Document 11/10/23 13:15 [facility] (Rec: 11/10/23 13:38 [facility] Desktop) 6 Minute Walk Test Date Performed 11/10/23 Time Performed 13:15 Height 5 ft 1 in Weight: 125 lb Weight in Pounds 125.[address]: Dr Neely Assistive device used: Walker Pre-test Oxygen Delivery Method Room Air Pulse Ox 95 Pulse Rate (60-100) 84 Dyspnea Oli Scale (0-10) 0 Exertion Oli Scale (6-20) 6 1st minute Oxygen Delivery Method Room Air Pulse Ox 93 Pulse Rate (60-100) 95 2nd minute Oxygen Delivery Method Room Air Pulse Ox 93 Pulse Rate (60-100) 97 Number of Rests Taken 1 3rd minute Number of Rests Taken 1 4th minute Number of Rests Taken 1 5th minute Number of Rests Taken 1 6th minute Oxygen Delivery Method Room Air Pulse Ox 95 Pulse Rate (60-100) 103 H Dyspnea Oli Scale (0-10) 0 Exertion Oli Scale (6-20) 14 Post-test Oxygen Delivery Method Room Air Pulse Ox 95 Pulse Rate (60-100) 103 H Full Laps Walked 3 Partial Lap, Number of Tiles Walked 0 Total Distance Walked (ft) 177 11/10/23 13:33 Cardiopulmonary Services by Serina Mar 2 minutes and 26 seconds into walk pt needed to sit down due to hip pain. Pt did not start walk again until minute 5. Pt rated exertion level at 14 only because of the hip pain. Pt denied having any S.O.B pre walk or during the walk. Pt also states she felt her breathing was normal post walk and again denied any S.O.B Initialized on 11/10/23 13:33 - END OF NOTE Interpretation Interpretation: The patient ambulated 117 feet over the course of 6 minutes beginning on room air with the use of a walker. The patient rested for minutes 3 through 5. Pretesting oxygen saturation was noted to be 95% on room air. With ambulation, the vania oxygen saturation was 93%. There was no significant exertional oxygen desaturation. Recommendations Recommendations: There is no indication for the use of supplemental oxygen at this time.
== END | disposition home or self-care (01) ==
LOC: PSN 13:10
PROVIDERS: PCP Family Medicine; Referring Provider Internal Medicine Critical Care Medicine; Visit Provider Internal Medicine Critical Care Medicine
DX: J44.9 Chronic obstructive pulmonary disease, unspecified (principal)
CPT/HCPCS: 94618

== ENCOUNTER → 2024-02-16 | Outpatient (CLI) | payer OTHER, SELFPAY ==
--- NOTE | 2024-02-16 14:15 | CT_ITS ---
CT BILATERAL LOWER EXTREMITIES WITH 3-D IMAGING CLINICAL INDICATION: OSTEOARTHRITIS RT HIP, HELEN PROTOCOL TECHNIQUE: Axial CT images of the bilateral lower extremities (from bilateral hips to bilateral knees) was performed without IV contrast material. Coronal and sagittal reformats were provided. The protocol utilizes one or more of the following dose reduction techniques: automated exposure control, adjustment of mA and/or kV according to patient size, and/or use of iterative reconstruction technique. RADIATION DOSAGE (If Supplied By Facility): CTDIvol = ( 13.88 ) mGy, DLP = ( 804.21 ) mGycm COMPARISON: Pelvis AP radiograph dated 09/12/2023 FINDINGS: Bones: There is severe/advanced degenerative arthrosis of the right hip joint with [id number]-[id number], marginal osteophyte rotation, articular surface remodeling, and subchondral sclerosis/cyst formation. There is mild degenerative arthrosis of the left hip joint with mild joint space narrowing. Unremarkable knee joints bilaterally. Osseous structures are intact without evidence of fracture or dislocation. No lytic or blastic osseous masses. Soft Tissues: There are multiple popcorn calcifications scattered throughout the uterus, compatible with calcified fibroids The deep soft tissue structures are unremarkable. The superficial soft tissues are unremarkable without evidence of edema, hematoma, or foreign body. CT/Extremity Lower without Contra IMPRESSION: Severe/advanced degenerative arthrosis of the right hip joint. Mild degenerative arthrosis of the left hip joint. Unremarkable knee joints bilaterally. Electronically Signed: Branden Ann MD at 15:30 EDT ,
== END | disposition home or self-care (01) ==
LOC: CT 14:12
PROVIDERS: PCP Family Medicine; Referring Provider Student in an Organized Health Care Education/Training Program; Visit Provider Student in an Organized Health Care Education/Training Program
DX: M16.11 Unilateral primary osteoarthritis, right hip (principal)
CPT/HCPCS: 73700

== ENCOUNTER 2024-02-22 08:00 | Outpatient (CLI) | payer OTHER, SELFPAY ==
--- NOTE | 2024-02-03 14:24 | RAD_ITS ---
STUDY: X-RAY CHEST REASON FOR EXAM: Female, 73 years old. Preoperative evaluation. TECHNIQUE: Frontal and lateral views of the chest on 3 images. COMPARISON: September 18, 2023. FINDINGS: Stable mild hyperinflation. There is no demonstrated pleural abnormality. Borderline cardiomegaly unchanged. Normal mediastinum and tawana. Normal visualized pulmonary arteries. Stable aortic tortuosity. Thoracic osteopenia with diffuse moderate thoracic spondylosis, unchanged. Normal visualized ribs, clavicles, and shoulders. No abnormality of the visualized soft tissue structures of the upper abdomen. RAD/Chest PA and Lateral IMPRESSION: Stable chest with no acute or active cardiopulmonary disease. Electronically Signed: Ander Mireles MD at 15:49 EDT ,
[2024-02-03 14:31] LABS: Absolute Lymphocyte Count 2.12 X10^3/uL (0.83-4.51); Absolute Neutrophil Count 6.1 X10^3/uL (2.0-7.7); Basophil# 0.06 X10^3/uL; Basophil% 0.7 % (0-1); Eosinophil# 0.15 X10^3/uL; Eosinophils% 1.7 % (0-5); Hematocrit 39.5 % (37-47); Hemoglobin 12.4 g/dL (12.0-15.0); Lymphocyte # 2.12 X10^3/ul (0.83-4.51); Lymphocyte % 24.1 % (19-41); Mean Corp Hgb Conc 31.4 g/dL (32-36); Mean Corpuscular Hgb 27.6 pg (27.0-32.0); Monocyte# 0.37 X10^3/uL; Monocyte% 4.2 % (0-10); NRBC Flagged by Analyzer 0 % (0-5); Neutrophil # 6.05 X10^3/uL (2.7-7.7); Neutrophil % 68.8 % (47-70); Platelet Count 286 K/mm3 (150-450); RBC Distribution Width CV 13.3 % (11.6-14.6); RBC Distribution Width SD 43.3 fl (35.1-43.9); Red Blood Count 4.49 M/mm3 (4.2-5.4); White Blood Count 8.8 K/mm3 (4.4-11.0)
[2024-02-03 14:58] LABS: Magnesium 2.4 mg/dL (1.6-2.6)
[2024-02-03 15:02] LABS: Albumin, Serum 3.7 g/dL (3.2-5.0); Anion Gap 7 (5-15); BUN 15 mg/dL (7-18); BUN/Creat Ratio 11.5 RATIO (10-20); Calcium,Total 9.4 mg/dL (8.5-10.1); Chloride 107 mmol/L (98-107); EST Glomerular Filtration Rate 43 mL/min (>60); Est Glom Filt Rate - Afr Amer 52 mL/min (>60); Glucose 158 mg/dL (74-106); Potassium 3.7 mmol/L (3.5-5.1); Sodium Level 139 mmol/L (136-145)
[2024-02-10 13:57] LABS: Hemoglobin A1c 5.5 % (3.8-5.6)
== END 2024-02-22 23:00 | disposition home or self-care (01) ==
LOC: SDC 09-14 21:24
PROVIDERS: Anesthesiology; PCP Family Medicine; Referring Provider Student in an Organized Health Care Education/Training Program; Visit Provider Student in an Organized Health Care Education/Training Program
DX: Z01.818 Encounter for other preprocedural examination (principal); R73.09 Other abnormal glucose; Z01.811 Encounter for preprocedural respiratory examination; Z53.9 Procedure and treatment not carried out, unspecified reason
CPT/HCPCS: 36415; 71046; 80048; 82040; 83036; 83735; 85025; 87077; 87081

== ENCOUNTER → 2024-02-25 | Outpatient (CLI) | payer OTHER, SELFPAY | END | disposition home or self-care (01) | LOC: LABSPEC 19:57 | PROVIDERS: PCP Family Medicine; Visit Provider Family Medicine | DX: Z00.00 Encounter for general adult medical examination without abnormal findings (principal) ==

== ENCOUNTER → 2024-03-01 | Outpatient (CLI) | payer OTHER, SELFPAY ==
[2024-03-01 15:47] LABS: Mucous, Urine 0 SEEN /hpf (<or=2+)
[2024-03-01 17:48] LABS: Color, Urine Yellow (Yellow); Glucose, Dipstick Normal (Normal); Ketone-Dipstick Negative (Negative); Leukocyte Esterase-Dipstick Negative /ul (Negative); Nitrite-Dipstick Negative (Negative); Occult Blood-Urine Negative /ul (Negative); Protein-Dipstick Negative (Negative); Specific Gravity, Urine 1.015 (1.002-1.030); Urine Bilirubin Dipstick Negative (Negative); Urine Clarity Clear (Clear); Urine Urobilinogen Normal (Normal)
[2024-03-01 18:28] LABS: Bacteria 1+ /hpf (None Seen); Squamous Epithelial Cells - UA 0-5 SEEN /hpf (5-10); White Blood Cells 0-5 SEEN /hpf (0-5)
[2024-03-01 18:29] LABS: Red Blood Cells-Urine 0 SEEN /hpf (0-5)
== END | disposition home or self-care (01) ==
LOC: LABSPEC 15:33
PROVIDERS: PCP Family Medicine; Visit Provider Family Medicine
DX: R41.0 Disorientation, unspecified (principal)
CPT/HCPCS: 81001; 87086

== ENCOUNTER 2024-04-18 12:42 | Observation (INO) | payer OTHER, SELFPAY ==
[2024-04-15 18:01] LABS: Hemoglobin A1c 6.1 % (3.8-5.6)
[2024-04-18] VITALS (13 sets, daily range): BP systolic 123–191; BP diastolic 61–109; PULSE 63–90; RESP 16–18; TEMP 36.1–37.4; O2SAT 18–100; BMI 24.3
[2024-04-18] MEDS: Magnesium 1 GM over 15 mins IV (08:45)
[2024-04-18] MEDS: Vancomycin HCl 750 MG in 0.9% Normal Saline (250mL Bag) 250 ML 250 MG IV (08:58)
[2024-04-18] MEDS: Gabapentin 600 MG Tablet PO (08:58)
[2024-04-18] MEDS: Acetaminophen 500 MG Tablet 1000 MG PO ×2 (08:58→22:23)
[2024-04-18] MEDS: Lactated Ringers 1,000 ML 15 ML IV (09:09)
--- NOTE | 2024-04-18 09:23 | PCM.PRE.AN2 ---
ASA Classification* ASA Classification ASA Classification: 3 Assessment & Plan Anesthesia* Anesthesia Assessment Anesthesia Assessment: Discussed sedation and/or anesthesia options, risks, benefits, and alternatives with patient/parents/legal guardian/POA. Questions invited. The patient/parents/legal guardian/POA seems to understand and agrees to proceed with anesthesia plan. Reviewed the physical assessment, medical history, allergy history and patient home medications list prior to surgery/procedure/anesthetic and documented any changes. Performed airway and anesthesia risk assessments. Anesthesia Type Anesthesia Type: Spinal Anesthesia Focused Assessment* Temperature: 98.5 F Pulse Rate: 73 Blood Pressure: 190/84 Respiratory Rate: 18 Pulse Ox: 99 Airway Assessment Mouth opens: >3 cm Mallampati Score: II Focused Labs Anesthesia Preop lab: CBC WBC 8.8 K/mm3 (4.4-11.0) 02/03/24 14:17 RBC 4.49 M/mm3 (4.2-5.4) 02/03/24 14:17 Hgb 12.4 g/dL (12.0-15.0) 02/03/24 14:17 Hct 39.5 % (37-47) 02/03/24 14:17 Plt Count 286 K/mm3 (150-450) 02/03/24 14:17 CHEMISTRY Potassium 3.7 mmol/L (3.5-5.1) 02/03/24 14:17 Sodium 139 mmol/L (136-145) 02/03/24 14:17 Magnesium 2.4 mg/dL (1.6-2.6) 02/03/24 14:17 Phosphorus 3.0 mg/dL (2.5-4.9) 08/21/23 06:25 BUN 15 mg/dL (7-18) 02/03/24 14:17 Creatinine 1.30 mg/dL (0.55-1.02) H 02/03/24 14:17 Glucose 158 mg/dL (74-106) H 02/03/24 14:17 POC Glucose Pending 04/18/24 08:46 TSH 0.17 uIU/mL (0.358-3.74) L 08/20/23 10:42 COAG PT 13.8 SECONDS (11.7-14.9) 08/19/23 13:17 Pre-Assessment Diagnosis/Proposed Procedure Planned Operative Procedure(s): (R) Total Hip Replacement Robotic Arm Assist Anesthesia History Anesthesia History - psychiatric technician: Anesthesia History - psychiatric technician Hx Hospitalization Yes: 2023 UTI AND BLOOD 03/25/24 10:28 INFECTION Any Problems With Anesthesia Yes: N,V 03/25/24 10:28 Cholinesterase deficiency No 03/25/24 10:28 You/Your Family Experience No 03/25/24 10:28 fever (hyperthermia) with Relationship Recent Exposure to Contagious No 04/18/24 08:46 Disease Does patient have nerve No 03/25/24 10:28 stimulator Patient instructed to have device shut off --Does patient have Pacemaker No 04/18/24 08:46 or ICD? When Was Last Pacemaker Check QUESTION #4 FULL TEXT: You/Your Family Experience fever (hyperthermia) with Anesthesia Last Oral Intake Last Oral intake: Last Oral Intake NPO since 00:00 04/18/24 08:46 Meds taken in AM with sips of No 04/18/24 08:46 water? Meds patient instructed to take am of surgery PONV PONV - psychiatric technician: PONV - psychiatric technician Female Yes 03/25/24 10:28 HX of Motion Sickness Yes 03/25/24 10:28 HX of N/V After Surgery Yes 03/25/24 10:28 Non-Smoker Yes 03/25/24 10:28 Duration of Surgery greater Yes 03/25/24 10:28 than 60 minutes Number of Risk Factors 5 03/25/24 10:28 PONV Score Severe Risk 03/25/24 10:28 Height & Weight Height & Weight: Anesthesia: Height & Weight Height 5 ft 1 in 04/18/24 08:46 Weight: 58.513 kg 04/18/24 08:46 Body Mass Index (BMI) 24.3 04/18/24 08:46 Respiratory Assessment Respiratory Assessment - psychiatric technician: Respiratory Tract Infection Hx - psychiatric technician Hx Respiratory Tract Infection No 03/25/24 10:28 STOP Sleep Apnea STOP Sleep Apnea - psychiatric technician: STOP Sleep Apnea - psychiatric technician Hx Hypertension No 03/25/24 10:28 Hx Sleep Apnea No 03/25/24 10:28 CPAP BIPAP Do you snore loudly (louder No 03/25/24 10:28 than talking or can be heard Do you often feel tired/ No 03/25/24 10:28 fatigued/ sleepy during daytime? Has anyone observed you stop No 03/25/24 10:28 breathing during sleep? STOP Results Negative 03/25/24 10:28 QUESTION #5 FULL TEXT : Do you snore loudly (louder than talking or can be heard through closed doors)? Tobacco Use History Tobacco Use History - psychiatric technician: Tobacco Use History - psychiatric technician Tobacco Use Smoking Status Former smoker 03/25/24 10:28 Hx Tobacco Use Yes 03/25/24 10:28 Years Smoking Packs Smoked per Day Smoking Cessation Date was Yes - quit smoking within 15 03/25/24 10:28 within the last 15 years years Hx Smoking Cessation Date 09/11/23 03/25/24 10:28 Hx Smoking Cessation Counseling Hematologic Medial History Hematologic Hx - psychiatric technician: Hematologic Medical Hx - accelerator technician Hx of Blood Transfusion No 03/25/24 10:28 Hx of Transfusion in last 3 No 03/25/24 10:28 Months Date of Last Transfusion (if within last 3 months) Ever experience any problems No 03/25/24 10:28 with transfusion(s)? Specify any problems Hx of Preganancy in last 3 N/A 03/25/24 10:28 Months Nurse Filling Out Transfusion NBUCHER 03/25/24 10:28 & Questions: Date: 03/25/24 03/25/24 10:28 Time: 10:30 03/25/24 10:28 Patient unable to answer at this time (ie. confused, unrespo /Reproduction History /Reproductive History - psychiatric technician: /Reproductive Hx- psychiatric technician Hx Now Gestational Age (in weeks): EDC: Hx Hx Para Hx Section SAB No 03/25/24 10:28 Active Medications Active Medications: Current Medications Generic Name Dose Route Start Last Admin Trade Name Freq PRN Reason Stop Dose Admin Acetaminophen 1,000 mg 04/18/24 10:45 04/18/24 08:58 Acetaminophen 500 Mg Tablet PO 04/18/24 10:46 1,000 mg X1 ONE Administration Sodium Chloride 77.4 ml/ 0 ml 04/18/24 10:45 Ropivacaine 200 mg/ OPERA.SITE 04/18/24 10:46 Epinephrine HCl 0.6 mg/ X1 ONE Ketorolac Tromethamine 30 mg/ Morphine Sulfate 5 mg Dexamethasone Sodium Phosphate 10 mg 04/18/24 10:45 Dexamethasone 10 Mg/Ml Vial IV 04/18/24 10:46 X1 ONE Gabapentin 600 mg 04/18/24 10:45 04/18/24 08:58 Gabapentin 600 Mg Tablet PO 04/18/24 10:46 600 mg X1 ONE Administration Cefazolin Sodium 2 gm/ Sodium 110 mls @ 150 mls/hr 04/18/24 10:45 Chloride IV 04/18/24 11:28 PREOP ONE Tranexamic Acid 1,000 mg/ 110 mls @ 660 mls/hr 04/18/24 10:45 Sodium Chloride IV 04/18/24 10:54 X1 ONE Tranexamic Acid 1,000 mg/ 110 mls @ 660 mls/hr 04/18/24 11:45 Sodium Chloride IV 04/18/24 11:54 X1 ONE Lactated Ringer's 1,000 mls @ 125 mls/hr 04/18/24 12:45 IV 04/18/24 20:44 .Q8H MICHA Vancomycin HCl 750 mg/ Sodium 265 mls @ 250 mls/hr 04/18/24 09:15 04/18/24 08:58 Chloride IV 04/18/24 10:18 250 mls/hr PREOP ONE Administration Magnesium Sulfate 1 gm/ 102 mls @ 408 mls/hr 04/18/24 10:45 04/18/24 09:06 Dextrose IV 04/18/24 10:59 Infused X1 ONE Infusion Lactated Ringer's 1,000 mls @ 15 mls/hr 04/18/24 08:30 04/18/24 09:09 IV 15 mls/hr .Q48H MICHA Administration Insulin Human Lispro 1 - 6 unit 04/18/24 10:45 Insulin Lispro 100 Unit/Ml Insuln.Pen SC 04/18/24 16:45 Q4H PRN PRN BG>/= 180, SEE PROTOCOL Protocol PFSH Medical History Wears glasses Wears dentures Post-menopausal Depression Walker as ambulation aid Arthritis History of renal disease Restless legs Back pain Injury of head and neck On home oxygen therapy Asthma Shortness of breath on exertion Leg cramps History of pain when walking Abn react-surg proc NEC Hx of colonic polyp Diverticulosis of colon Unilateral primary osteoarthritis, right hip Allergic rhinitis, unspecified Labyrinthitis, right ear COPD (chronic obstructive pulmonary disease) Smoker COPD (chronic obstructive pulmonary disease) Home Medications ?Medication ?Instructions ?Recorded ?Last Taken ?Type albuterol sulfate 2.5 mg/3 mL 2.5 mg (3 mL) inhalation Q4H PRN 10/13/23 04/17/24 21:00 Rx (0.083 %) solution for nebulization shortness of breath or wheezing #180 mL Allergy/AdvReac Type Severity Reaction Status Date / Time nitrofurantoin (From Allergy PT UNSURE Verified 04/18/24 08:45 Macrodantin) OF REACTION Family History Mother Heart disease Dementia Father Lung cancer Underlying tobacco use history concurrently. Surgical History History of bilateral tubal ligation Hx of hernia repair Social History household members: spouse Smoking Status: Former smoker alcohol intake: never substance use type: does not use Review of Systems (Anesthesia) ROS Narrative System reviewed and no additional complaints, except as documented.
[2024-04-18 09:24] LABS: Bedside Glucose 150 mg/dL (74-106)
[2024-04-18] MEDS: Cefazolin 2 GM in 0.9% Normal Saline (100mL Bag) 100 ML IV (10:09)
--- NOTE | 2024-04-18 10:20 | HIP_PTH ---
PATIENT: SHILA NICOLE LOC: [facility] U#:[id number] AGE/SX: 73/F ROOM: MA315 RE04/18/[address]: Dr. Malcom Barriga DO : 1950 BED: 1 DIS: 04/19/2024 SPEC #: [id number] RECD: 04/18/24 13:35 STATUS: MICHELLE DIANAMireya #: [id number] DANITZA: 04/18/24 10:[address]: Malcom Barriga DEPT: SURGICAL PATHOLOGY RECD BY: Checo Reyes ENTERED: 04/18/24 14:05 SP TYPE: TOTAL HIP OTHR DR: Josie Salmon MD Tissues: Hip, NOS Procedures: Decalcification bone/plaque Surgery Specimen Level IV HEADER OPERATION: Total hip replacement robotic arm assist PRE-OP DIAGNOSIS: Severe osteoarthritis of right hip TISSUE SUBMITTED: Bone and soft tissue of right hip MICROSCOPIC DIAGNOSIS Bone and tissue of right hip, total hip resection: Severe degenerative joint disease. AM: 04/21/2024 MICROSCOPIC DESCRIPTION Slides are reviewed. GROSS DESCRIPTION Received is one container labeled with the patient's name and designated bone and soft tissue right hip. The specimen consists of a honeycutt femoral head (with portion of femoral neck). The femoral head measures 5.0 x 5.0 x 4.5 cm. The articular surface displays prominent osteophyte formation, eburnation and bone erosion. Also present in the specimen container are multiple irregular fragments of bone reamings and pink-yellow soft tissue consists entirely of bone reamings measuring in aggregate 8.0 x 7.0 x 1.5 cm. No obvious soft tissue is identified. Portion of articular cartilage is deattached from the underlying bone. Ceramic Painter sections are submitted in two cassettes as follows: 1 - bone reaming, 2 - femoral head after decalcification. / REESE. 04/18/2024 TC:5 CPT: 42200, 18696
[2024-04-18] MEDS: dexAMETHasone 10 MG/ML Vial IV (10:21)
[2024-04-18] MEDS: TXA 1000mg in NS100 100ml (IVPB at Incision) 660 MG IV (10:22)
[2024-04-18] MEDS: JPS (Morphine 10mg/ml) OPERA.SITE (11:58)
[2024-04-18] MEDS: TXA 1000mg in NS100 100ml (IVPB at Closure) 660 MG IV (12:09)
--- NOTE | 2024-04-18 12:38 | PCM.POST.ANE ---
Anesthesia: Postop Eval I Current Vital Signs Temperature: 98 F Pulse Rate: 70 Blood Pressure: 145/75 Respiratory Rate: 16 Pulse Ox: 18 Oxygen Delivery Method: Room Air Assessment Airway patent: Yes Spontaneous unlabored respirations: Yes Mental status: Awake and Calm nausea: No Vomiting: No Anesthesia Complication: No Fluid Hydration Crystalloid volume administer (ml): 1,000 Total IV fluid infused: 1,000 Progress Note Anesthesia document: Postop Eval 1 completed: Yes
--- NOTE | 2024-04-18 12:40 | RAD_ITS ---
STUDY: X-RAY - PELVIS AND RIGHT HIP REASON FOR EXAM: Female, 73 years old. Post Op -- AP both hips on single elva/lateral of op hip PACU TECHNIQUE: 2 views of the pelvis and hip. COMPARISON: 09/12/2023 FINDINGS: There is a non-specific bowel gas pattern. Normal visualized soft tissue structures. Normal bilateral iliac wings, sacroiliac joints and visualized sacrum. Normal bilateral superior and inferior pubic rami. Normal pubic symphysis. Normal bilateral ischial tuberosities. Interval recent right hip arthroplasty for treatment of arthrosis with a subcutaneous emphysema. . RAD/Hip Min 2 Views (Portable) IMPRESSION: Interval recent right hip arthroplasty. Electronically Signed: Christos Tao MD at 13:51 EDT ,
--- NOTE | 2024-04-18 13:16 | POSTOPAN2_ITS ---
Anesthesia Postop Eval I Sum Postop Eval Completion status Anesthesia document: Postop Eval 1 completed: Yes Anesthesia Postop Eval I Summary Anesthesia Postop Eval I Summary: Anesthesia Postop Eval I: Assessment Summary Airway patent Yes 04/18/24 12:38 FAMILY [email or web address] Spontaneous unlabored Yes 04/18/24 12:38 FAMILY [email or web address] [email or web address] respirations Mental status Awake,Calm 04/18/24 12:38 FAMILY [email or web address] [email or web address] nausea No 04/18/24 12:38 FAMILY MEDICINE [email or web address] Vomiting No 04/18/24 12:38 FAMILY [email or web address] Anesthesia Postop Eval I: Fluid Summary Crystalloid volume administer 1,000 04/18/24 12:38 FAMILY [email or web address] (ml) Colloids volume administered ( ml) Blood Product volume administered (ml) Total IV fluid infused 1,000 04/18/24 12:38 FAMILY [email or web address] Anesthesia Postop Eval I: Summary Notes Anesthesia Complication No 04/18/24 12:38 FAMILY [email or web address] Anesthesia Complication Comment: Post-operative progress note Anesthesia: Postop Eval II Evaluation Mental status: Awake Pain Level: 2 nausea: No Vomiting: No
--- NOTE | 2024-04-18 13:16 | PCM.POSTANE2 ---
Anesthesia Postop Eval I Sum Postop Eval Completion status Anesthesia document: Postop Eval 1 completed: Yes Anesthesia Postop Eval I Summary Anesthesia Postop Eval I Summary: Anesthesia Postop Eval I: Assessment Summary Airway patent Yes 04/18/24 12:38 [email or web address] Spontaneous unlabored Yes 04/18/24 12:38 [email or web address] respirations Mental status Awake,Calm 04/18/24 12:38 [email or web address] nausea No 04/18/24 12:38 [email or web address] Vomiting No 04/18/24 12:38 [email or web address] Anesthesia Postop Eval I: Fluid Summary Crystalloid volume administer 1,000 04/18/24 12:38 [email or web address] (ml) Colloids volume administered ( ml) Blood Product volume administered (ml) Total IV fluid infused 1,000 04/18/24 12:38 [email or web address] Anesthesia Postop Eval I: Summary Notes Anesthesia Complication No 04/18/24 12:38 [email or web address] Anesthesia Complication Comment: Post-operative progress note Anesthesia: Postop Eval II Evaluation Mental status: Awake Pain Level: 2 nausea: No Vomiting: No
--- NOTE | 2024-04-18 14:18 | PCM.OPRPT ---
Report of Operation Date of Procedure: 04/18/24 Description of Surgical Findings:: Preoperative diagnosis: Right hip primary osteoarthritis Postoperative diagnosis: Right hip primary osteoarthritis Procedure: Robotic assisted right total hip arthroplasty Surgeon: Malcom Barriga DO Inspector Materials And Processes: Maryann Olivares PA-C Anesthesia: General endotracheal Swedish Masseuse: Ron Curry CRNA Complications: Intraoperative nondisplaced calcar fracture. Stable following cerclage cable fixation. Drains: None Estimated blood loss: 150 cc Urinary output: none recorded IV fluids: 1000 cc crystalloid Specimens: Femoral head Surgical implants: Sonal Insignia High Offset hip stem size #6, Biolox delta ceramic V 40 femoral head 36 mm outer diameter -2.5 mm neck length, Sonal Trident X3 polyethylene insert, Trident 2 TriTanium cluster hole acetabular shell 48 mm diameter, [employer] [place] beaded cable 2.0 mm x 2 Indications: This is an 73-year-old female seen in the outpatient setting for right hip pain. X-rays revealed severe right hip osteoarthritis. She failed oral sxbo-uos-qfgooot analgesics including NSAIDs and Tylenol, activity modification. I recommended surgical intervention the form of right total hip arthroplasty. I reviewed the procedure with the patient, its risk, benefits, alternatives. Risks included but were not limited to bleeding, infection, loss of life or limb, risk of anesthesia, neurovascular injury, persistent pain, instability, need for additional surgery, failure of orthopedic hardware, loosening, osteolysis, need for assistive devices long-term, leg length discrepancy. Patient expressed understanding wish to proceed with surgery. Description of procedure: I greeted the patient in same-day surgery holding area the day of surgery. He was identified by name, medical record number, and date of . All questions were answered to patient satisfaction. The operative extremity was marked with a surgical marker. Informed consent was confirmed with the patient. Spinal anesthetic was then administered in the PACU by anesthesia staff. Patient is brought to the operative suite. Patient positioned supine onto the operating table where gentle sedation was administered. Patient was then positioned in a lateral decubitus position with the right side up. An axillary roll was placed under the patient's left axilla. The left fibular head was free. We then prepped and draped the right lower extremity in normal, sterile orthopedic fashion. Prior to the procedure, the Nuno plan was reviewed and appeared appropriate based on the patient's CT scan and anatomy. We performed a timeout with all parties in attendance in agreement with the side, site, and operation to be performed. No concerns were voiced and would like to proceed. 1 g TXA IV as well as 2 g Ancef was administered prior to the incision by anesthesia staff. 1 g TXA IV was administered at time of closure additionally. I first elected to place our pelvic array with an oblique incision over the iliac crest just posterior to the ASIS. I bluntly dissected down the level of the periosteum. I then drilled 3 intracortical pins with excellent cortical purchase. Pelvic array was then assembled and positioned appropriately. I then turned my attention to the hip. A standard posterior lateral incision was made curvilinear over the posterior lateral hip, centered on the tip of the greater trochanter. Full-thickness skin incision was made, approximately 12 cm in length. I sharply dissected down the level of the fascia pa. Fascia pa was then incised in line with the incision. I bluntly dissected through the raphae of the gluteus christina. Femoral checkpoint was placed at this point. We then registered her femoral anatomy prior to dislocating the hip. I then internally rotated the hip. Limited gluteal bursectomy was performed to identify the short external rotators. A Cobra retractor was placed in his gluteus medius. Short external rotators were taken down with Bovie cautery and tagged for later repair with #2 Ethibond suture. This identified the underlying capsule. A hockey-stick shaped capsulotomy was made over the femoral neck carried posteriorly to the acetabular labrum. Labrum was released and the hip was dislocated. I then marked a standard femoral neck cut 1 fingerbreadth above the lesser trochanter. Sagittal saw was used to carefully cut the femoral neck. Femoral head was removed and examined and appeared benign. It was sent to pathology per hospital policy. I then turned my attention to the acetabulum. Cobra retractors were placed anterior and posteriorly. Self-retaining retractor was placed superiorly. Acetabular labrum was excised with a long handled knife. Acetabular pulmonary was excised with Bovie cautery. Hemostasis was excellent at this point. I then registered the acetabulum with the [facility] robot successfully. I then brought in the Nuno robot with the acetabular reaming arm to a size 48. This was reamed and the planned position to the planned depth. Reamer was then removed. There was excellent bleeding bone at the base and excellent remaining anterior posterior dash of the acetabulum. 48 mm acetabular component was selected for and attached to the test rack operator arm of the robot. I placed the acetabular component near planned position before attaching to the robot. The robot then held the shell in position while I impacted it to an appropriate depth. The acetabular cup was then removed from the robotic arm. It had excellent rim fit. Large anterior and posterior osteophytes were then excised with a combination of curved osteotome and rongeur. I then selected a standard polyethylene liner and impacted this per cupola charger insulation recommendations. I then turned my attention to the femur. Box chisel was then utilized to gain access to the femoral canal. Canal finder was placed. Sequential broaches were used and press-fit manner. A final size 6 achieved excellent vertical and rotational stability. We then trialed with a high offset hip stem as templated. Just prior to reduction of the hip, a nondisplaced vertical fracture through the calcar. The broach was left in place and 2 cerclage cables were placed around the proximal femur 1 proximal and 1 distal to the lesser trochanter. Fracture. Stable. The broach was then removed and impacted once more. The hip stem height was maintained. Calcar planer was then brought into prepare for collared implant. Reduction was performed with a -2.5 adjustment sleeve. This achieved excellent stability through all planes of motion, normal pistoning, and reapproximation of leg lengths. Final dislocation was performed. Trials were removed. The wound was aria irrigated normal saline solution. Final size 6 high offset hip stem was then impacted to appropriate depth with excellent purchase. The fracture was nondisplaced and appeared to have excellent compression from our cerclage cables. Final head was then impacted over clean, dry Alonso taper neck. Final reduction was performed. A posterior capsular repair was performed with #2 Ethibond suture and bone tunnels, as well as the short external rotator repair. Femoral checkpoint was removed. Pelvic array pins were removed. A 3-minute sterile dilute Betadine soak was performed and then the wound was copiously irrigated with normal saline solution. IT band was closed watertight with #1 strata fix suture. Deeper fascial layers were closed with 0 Vicryl suture in interrupted fashion. Subcutaneous layers were reapproximated with 2-0 Vicryl suture and skin reapproximated with running subcuticular 3?0 strata fix and skin glue. Pelvic array incision was closed with buried 2-0 Vicryl suture and skin glue.. A silver dressing was applied. Patient tolerated procedure well. She was positioned back in the supine position on his hospital bed. She was transferred to PACU in stable condition. A pillow was placed between the patient's leg to be present while she is in bed. Need for skilled assistant branch manager: Maryann Olivares PA-C was critical to the outcome of the case. During the course of the procedure the physician assistant branch manager played a vital role. Her intimate knowledge of my steps in the procedure aided in safe and expedient completion of the procedure. The PA played a vital role in positioning particularly in obtaining the appropriate positioning. The PA was also vital in the retraction of soft tissues during the exposure and projecting vital structures. The PA was also vital and protecting soft tissues during times of bony cuts. She also played a vital role in closure with my direct supervision. The PA was also important during reduction and dislocation of the joint and trials intraoperatively. Post Operative Plan: Due to her COPD, patient will be placed in observation for overnight medical monitoring and early convalescence. Weightbearing: Weightbearing as tolerated right lower extremity, posterior hip precautions. Pillows between legs while in bed. Physical therapy to start next week which has been scheduled already. Antibiotics: 24 hours IV Ancef DVT Prophylaxis: Aspirin 81 mg twice daily for DVT prophylaxis x 6 weeks. Banerjee: None Dressing: Maintain silver dressing x 5 days X-Rays: PACU x-rays were reviewed demonstrated well-positioned right total hip arthroplasty implant. No visible fracture. Follow-up 2-week x-rays in the office. Follow-up: 2 weeks in my office as scheduled
[2024-04-18] MEDS: oxyCODONE 5 MG Tablet PO (16:10)
[2024-04-18] MEDS: Cefazolin 1 GM/50 ML BAG IV (18:07)
[2024-04-18] MEDS: Lactated Ringers 1,000 ML 125 ML IV (18:13)
[2024-04-18] MEDS: Aspirin 81 MG TAB.CHEW PO (22:23)
[2024-04-18] MEDS: Senna/Docusate Sodium 1 Tablet 2 TABLET PO (22:23)
[2024-04-19 01:21] VITALS: BP 180/74; PULSE 88; RESP 18; TEMP 36.8; O2SAT 95
[2024-04-19] MEDS: oxyCODONE 5 MG Tablet PO ×2 (01:29→10:45)
[2024-04-19] MEDS: Cefazolin 1 GM/50 ML BAG IV (01:53)
[2024-04-19 05:21] VITALS: BP 176/91; PULSE 80; RESP 18; TEMP 37; O2SAT 94
[2024-04-19] MEDS: Acetaminophen 500 MG Tablet 1000 MG PO (06:26)
[2024-04-19 07:18] LABS: Hematocrit 32.7 % (37-47); Hemoglobin 9.9 g/dL (12.0-15.0); Mean Corp Hgb Conc 30.3 g/dL (32-36); Mean Corpuscular Hgb 27.3 pg (27.0-32.0); Mean Corpuscular Volume 90.1 fL (81-99); Mean Platelet Vol. 10.1 fl (6.2-12.0); Platelet Count 256 K/mm3 (150-450); RBC Distribution Width CV 13.1 % (11.6-14.6); RBC Distribution Width SD 43.6 fl (35.1-43.9); Red Blood Count 3.63 M/mm3 (4.2-5.4); White Blood Count 15.9 K/mm3 (4.4-11.0)
[2024-04-19 07:45] LABS: Anion Gap 5 (5-15); BUN 19 mg/dL (7-18); BUN/Creat Ratio 16.5 RATIO (10-20); Calcium,Total 9.1 mg/dL (8.5-10.1); Chloride 107 mmol/L (98-107); Creatinine, Serum 1.15 mg/dL (0.55-1.02); EST Glomerular Filtration Rate 49 mL/min (>60); Est Glom Filt Rate - Afr Amer 59 mL/min (>60); Estimated Creatinine Clearance 35.82 ml/min; Glucose 130 mg/dL (74-106); Potassium 4.5 mmol/L (3.5-5.1); Sodium Level 139 mmol/L (136-145)
[2024-04-19] MEDS: Aspirin 81 MG TAB.CHEW PO (08:54)
[2024-04-19] MEDS: Senna/Docusate Sodium 1 Tablet 2 TABLET PO (08:54)
[2024-04-19 09:21] VITALS: BP 155/88; PULSE 72; RESP 16; TEMP 36.9; O2SAT 95
[2024-04-19 09:47] VITALS: O2SAT 94
--- NOTE | 2024-04-19 10:33 | CASEMGMT ---
Addendum entered by Cassi Mcneill 04/19/24 10:59: ROLA PAINTER called [facility] to confirm they have order for OP therapy, [facility] denied having a script. [facility]A PAINTER called [facility], they confirmed pt has appointment on 04/21 at 3:30 pm. Added appointment to DC plan. Original Note: ROLA PAINTER Assessment: Face to Face with pt for initial transition planning/care coordination assessment. ROLA PAINTER introduced self and role at [facility], pt voices understanding and consents to assessment. Pt is A&O x4 and answers all questions appropriately at this time. Pt sitting up in chair in no distress. Care providers, pharmacy, and demographics verified/updated. Strata: 1 Admitting Dx: Total Hip Replacement PCP: Viky Specialists: Denies Preferred Pharmacy: [facility] Insurance: [employer] Prescription Benefit: yes LNOK: Christos, ; Zoie, Daughter Living Arrangements: Pt lives with and son in a trailer with 5 steps to enter. ADLs: Pt states needs assistance. Transportation: Pt family provides transportation. DME: Nebulizer, walker, cane HHC/SNF: Denies Hx of. Pt states no concerns with going home at time of dc. ROLA PAINTER asked about F/U appointment and OP therapy. Pt states order already sent to [facility] for PT, pt unsure of when appointment is. Pt denies RN MADINA to call [facility] to check on appointment and schedule if not already scheduled. Pt states is handling it. Pt states no further concerns/needs. CM to follow. Advised pt to ask CM if any further question/concerns/needs arise, voices understanding. Pt Goal: Home Plan: Home with OP therapy. Jesus CANELA CM
--- NOTE | 2024-04-19 10:52 | CASEMGMT ---
TC to [facility] to see if pt has outpt therapy set up, per Pretty pt does not. TC to [facility], spoke with Estela, pt has an appt on at 3:30pm.
--- NOTE | 2024-04-19 11:31 | PCM.PN.ORT ---
Subjective Subjective Patient is s/p robotic assisted right total hip arthroplasty with Dr. Barriga 04/18/2024. of note there was an intraoperative nondisplaced calcar fracture. Stable following cerclage cable fixation patient resting comfortably in bed. Postop x-rays were reviewed and stable. Rates pain 1/ 10 at rest. With movement 10/10. States taking Tylenol and oxycodone and ice help to relieve pain. Patient has been up with therapy. Walking with the assit of a walker. She is weightbearing as tolerated. Afebrile, no chest pain, shortness of breath, negative calf pain/ erythema, and no other signs of DVT. Objective Data Objective Data Vital Signs: Vital Signs Temp Pulse Resp BP Pulse Ox O2 Del Method O2 Flow Rate 98.4 F 72 16 155/88 H 94 Room Air 2 04/19/24 09:21 04/19/24 09:21 04/19/24 09:21 04/19/24 09:21 04/19/24 09:47 04/19/24 09:47 04/18/24 15:29 Oxygen Flow Rate (L/min) 2 Oxygen Delivery Method Room Air Weight: 58.513 kg Body Mass Index (BMI) 24.3 Intake & Output: Intake and Output for Last 24 Hours 04/17/24 04/18/24 04/19/24 23:59 23:59 23:59 Intake Total 879.5 / 879.5 1024.17 / 1024.17 Output Total 250 / 250 Balance 879.5 / 879.5 774.17 / 774.17 Lab / Micro Data 04/19/24 06:46 04/19/24 06:46 Labs: Laboratory Results - last 24 hr 04/19/24 06:46: WBC 15.9 H, RBC 3.63 L, Hgb 9.9 L, Hct 32.7 L, MCV 90.1, MCH 27.3, MCHC 30.3 L, RDW Std Deviation 43.6, RDW Coeff of Mariama 13.1, Plt Count 256, MPV 10.1, Sodium 139, Potassium 4.5, Chloride 107, Carbon Dioxide 27.0, Anion Gap 5, BUN 19 H, Creatinine 1.15 H, Estim Creat Clear Calc 35.82, Est GFR (MDRD) Af Amer 59 L, Est GFR (MDRD) Non-Af 49 L, BUN/Creatinine Ratio 16.5, Glucose 130 H, Calcium 9.1 Radiography Diagnostic Testing: Radiology Impression Hip X-Ray 04/18/24 12:40 IMPRESSION: Interval recent right hip arthroplasty. Electronically Signed: Christos Tao MD at 13:51 EDT , Physical Exam Narrative Patient resting comfortably in bed No signs of acute distress Satting well on room air Limb is warm to touch, Sensation intact throughout entire lower extremity, including saphenous, sural, superficial and deep peroneal, and tibial distribution. DP/PT pulses bounding. Dorsiflexion/plantarflexion strength 5/5 Dressing clear dry intact Calf nontender to palpation, no erythema, no edema. Negative Homans Assessment & Plan Assessment/Plan (1) S/P total hip arthroplasty: PLAN: Plan Patient is status post robotic assisted right total hip arthroplasty postop day [address] Barriga 04/18/2024 1. Will continue PT today. Weightbearing as tolerated 2. plan for discharge this afternoon following PT 3. Patient will follow up for post op appointment on as previously scheduled in 2 weeks in office 4. Patient has outpatient PT appointment as previously scheduled 5. WBC 15.9 acute reactive leukocytosis: secondary to pre operative decadron. no acute systemic signs of infection. will monitor, and likely self resolve. 6. H/H 9.9/32.7: post operavtive anemia secondary to acute blood loss intraoperatively. Patient is asymptomatic at this time. No intraoperative complications. will continue to monitor. no acute interventions. 7. DVT prophylaxis : Aspirin 81 mg twice daily x 6 weeks 8. Pain control: patient instructed to take tylenol 500mg 2 tablets TID, meloxicam 7.5 BID. and oxycodone 1-2 tablets every 4-6 hours only as needed for pain control. 9. Patient also given a prescription of pepcid for ulcer prophylaxis 10. ok to remove post op dressing. post op day 5 11. Posterior hip precautions x 6 weeks.
--- NOTE | 2024-04-19 11:36 | DCINST_ITS ---
Discharge Instructions Diet Discharge Diet: No restrictions Activity Discharge Activity: Return to Normal Activity (Maintaining posterior hip precautions x 6 weeks postop) and May Shower Weight Bearing Status: Weight bearing as tolerated Additional Activity Instructions:: Posterior precautions x 6 weeks Dressing / Incision Call your doctor if your incision/area has: Continuous Slow Oozing, Sudden Increased Bleeding, Increased Pain/ Swelling, Increased Redness, Foul Smelling Discharge and Swelling at the incision site Call your doctor if you observe: Fever of 101 or Higher, Inability to have a bowel movement, Shortness of breath, Dizziness, Chest pain, Increased palpitations (irregular heartbeat), Calf discomfort and Uncontrolled pain Remove Dressing in: 5 days Cleanse incision/area with: Soap & Water and Keep Dressing Clean & Dry Follow Up Care When: In 2 weeks with our office as previously scheduled. Test Results: Test results from this visit will be discussed in further detail at your follow- up appointment, if applicable. Discharge Plan Admission Admit Date/Time: 04/18/24 12:42 Attending Provider: Malcom Barriga Primary Care Provider: Josie Salmon Discharge Orders/Prescriptions Prescriptions: New acetaminophen 500 mg Tablet 1,000 mg PO Q8 Qty: 180 0RF aspirin 81 mg Tablet,Chewable 81 mg PO BID 42 Days Qty: 84 0RF meloxicam 7.5 mg Tablet 7.5 mg PO BIDCM Qty: 60 0RF sennosides-docusate sodium [Stimulant Laxative Plus] 8.6-50 mg Tablet 2 tab PO BID Qty: 14 0RF oxycodone 5 mg Tablet 5 - 10 mg PO .q4-6 prn PRN (Reason: Pain Score 4-10) 7 Days Qty: 42 0RF famotidine 20 mg tablet 20 mg PO DAILY Qty: 30 0RF Continued albuterol sulfate 2.5 mg /3 mL (0.083 %) solution for nebulization 2.5 mg inhalation Q4H PRN (Reason: shortness of breath or wheezing) Qty: 180 3RF Referrals / Follow Up: Josie Salmon MD [Primary Care Provider] -
[2024-04-19 11:51] VITALS: BP 152/82; PULSE 70; RESP 14; TEMP 36.9; O2SAT 100
--- NOTE | 2024-04-19 12:35 | PHA.DC.MC.R ---
Pharmacy [facility] has performed discharge medication reconciliation and counseling for this patient. 1. ACETAMINOPHEN 1000MG PO Q8 2. ASPIRIN 81MG PO BIDCM X 6 WEEKS 3. FAMOTIDINE 20MG PO DAILY 4. MELOXICAM 7.5MG PO BIDCM 5. OXYCODONE 5-10MG PO Q4-6H PRN PAIN 6. SENNA/DOCUSATE 2T PO BID The patient's discharge medication list was reviewed for discrepancies and discrepancies were resolved. The patient was counseled on the following discharge medications and changes in medications for homegoing were reviewed. The Reason for Use, instructions for use, and potential side effects were reviewed for all new medications. The patient's questions regarding all of their medications were answered. The patient was able to verbally demonstrate an understanding of their discharge medications. Medications at Discharge Home Medications albuterol sulfate 2.5 mg/3 mL (0.083 %) solution for nebulization 2.5 mg (3 mL) inhalation Q4H PRN shortness of breath or wheezing #180 mL 10/13/23 acetaminophen 500 mg tablet 1,000 mg (2 x 500 mg) PO Q8 #180 tabs 04/19/24 aspirin 81 mg chewable tablet 81 mg PO BID 6 weeks #84 tabs 04/19/24 famotidine 20 mg tablet 20 mg PO DAILY #30 tabs 04/19/24 meloxicam 7.5 mg tablet 7.5 mg PO BIDCM #60 tabs 04/19/24 oxycodone 5 mg tablet 5 - 10 mg (1 - 2 x 5 mg) PO .q4-6 prn PRN Pain Score 4-10 7 days #42 tabs 04/19/24 sennosides 8.6 mg-docusate sodium 50 mg tablet (Stimulant Laxative Plus) 2 tab PO BID #14 tabs 04/19/24
[2024-04-19 14:25] VITALS: BP 152/82; PULSE 70; RESP 14; TEMP 36.9; O2SAT 94
--- NOTE | 2024-04-19 14:36 | CASEMGMT ---
SW notified this RN CM that the pt is requesting a FWW. RN CM to pt room at this time. Pt states that she has 2 walkers at home but they both have 4 wheels. Pt states that Dr. Barriga is recommending a simple FWW to enhance the strength of the pt upper extremities. Pt states that she has received a walker in the last 5 years through her insurance. Pt notified that her insurance will not cover this cost. Pt states understanding. Pt educated that it may be possible to take off the back wheels on her current walkers. Pt also educated about local purchasing options with pricing. Pt states that they will attempt to take the back wheels off first and if not, will buy a personal FWW. Pt denies further concerns at this time and thanks this RN CM. Pt RN updated.
== END 2024-04-19 15:00 | disposition home or self-care (01) ==
LOC: SDC 16:19 → MS3 16:19
PROVIDERS: Admitting Provider Student in an Organized Health Care Education/Training Program; PCP Family Medicine; Referring Provider Student in an Organized Health Care Education/Training Program; Visit Provider Student in an Organized Health Care Education/Training Program
PROC: 8E0Y0CZ Robotic Assisted Procedure of Lower Extremity, Open Approach (ICD-10-PCS; CPT 27130; principal; 2024-04-18 09:50)
DX: M16.11 Unilateral primary osteoarthritis, right hip (principal); J43.9 Emphysema, unspecified; Z87.891 Personal history of nicotine dependence; K21.9 Gastro-esophageal reflux disease without esophagitis; I10 Essential (primary) hypertension; G47.30 Sleep apnea, unspecified
CPT/HCPCS: 27130; S2900; 01214; 36415; 73502; 80048; 82962; 83036; 85027; 88305; 88311; 94668; 96361; 96365; 96366; 97162; 97166; 99221; C1713; C1776; J7050; J7120; G0378; J2405; J3475

== ENCOUNTER 2024-04-20 04:10 | Emergency (ER) | payer OTHER, SELFPAY ==
[2024-04-20 04:11] VITALS: BP 153/87; PULSE 108; RESP 18; TEMP 36.7; O2SAT 93; BMI 26.4
[2024-04-20 04:16] VITALS: O2SAT 94
--- NOTE | 2024-04-20 04:25 | RAD_ITS ---
EXAM: XR LEFT FOOT COMPLETE, 3 OR MORE VIEWS CLINICAL INDICATION: bruising third toe TECHNIQUE: Frontal, lateral and oblique views of the left foot. COMPARISON: No relevant prior studies available. FINDINGS: BONES/JOINTS: Unremarkable. No acute fracture. No subluxation. Normal alignment. Preservation of the joint space. No sclerotic or destructive changes observed. SOFT TISSUES: Unremarkable. No soft tissue swelling or gas. No radiopaque foreign body. RAD/Foot min 3 Views IMPRESSION: Negative left foot x-rays. Electronically Signed: Koko Singleton MD at 4:58 EDT ,
--- NOTE | 2024-04-20 04:25 | RAD_ITS ---
EXAM: XR RIGHT HIP WITH PELVIS WHEN PERFORMED, 2 OR 3 VIEWS CLINICAL INDICATION: fall, s/p MILA, pain R hip TECHNIQUE: Two or three views of the right hip with pelvis when performed. COMPARISON: No relevant prior studies available. FINDINGS: BONES/JOINTS: Right total hip arthroplasty. Components appear well seated. No displaced fracture. No destructive or sclerotic lesions. Note that overlapping bowel shadows may however obscure fine detail. Sacroiliac joint is unremarkable. No widening of the pubic symphysis. SOFT TISSUES: Unremarkable. No soft tissue swelling or gas. OTHER FINDINGS: Calcifications in the pelvis likely due to calcified leiomyoma. RAD/HIP, UNI W/ Pelvis 2-3 Views IMPRESSION: 1. Right total hip arthroplasty. Components appear well seated. 2. No acute pelvic fractures. Electronically Signed: Koko Singleton MD at 4:58 EDT ,
--- NOTE | 2024-04-20 04:46 | EX.ED.DYSGE1 ---
HPI History of Present Illness Chief Complaint: Fall Narrative Narrative: Patient is a 73-year-old female past medical history depression, asthma, on home oxygen as needed, COPD who presented to the emergency department chief complaint of fall. Patient states that she was try to get into her chair this morning when she fell. She states that she did not hit her head did not pass out remembers entire event. Patient states that she had severe pain and feels that she may have broken something which prompted her to come here for further evaluation management. Patient states that she is not on any blood thinning medications. Patient rates her pain an 8 out of 10 currently in her right hip. [facility] Medical History Wears glasses Wears dentures Post-menopausal Depression Walker as ambulation aid Arthritis History of renal disease Restless legs Back pain Injury of head and neck On home oxygen therapy Asthma Shortness of breath on exertion Leg cramps History of pain when walking Abn react-surg proc NEC Hx of colonic polyp Diverticulosis of colon Unilateral primary osteoarthritis, right hip Allergic rhinitis, unspecified Labyrinthitis, right ear COPD (chronic obstructive pulmonary disease) Smoker COPD (chronic obstructive pulmonary disease) Home Medications ?Medication ?Instructions ?Recorded ?Last Taken ?Type albuterol sulfate 2.5 mg/3 mL 2.5 mg (3 mL) inhalation Q4H PRN 10/13/23 04/17/24 21:00 Rx (0.083 %) solution for nebulization shortness of breath or wheezing #180 mL acetaminophen 500 mg tablet 1,000 mg (2 x 500 mg) PO Q8 #180 04/19/24 Unknown Rx tabs aspirin 81 mg chewable tablet 81 mg PO BID 6 weeks #84 tabs 04/19/24 Unknown Rx famotidine 20 mg tablet 20 mg PO DAILY #30 tabs 04/19/24 Unknown Rx meloxicam 7.5 mg tablet 7.5 mg PO BIDCM #60 tabs 04/19/24 Unknown Rx oxycodone 5 mg tablet 5 - 10 mg (1 - 2 x 5 mg) PO .q4-6 04/19/24 Unknown Rx prn PRN Pain Score 4-10 7 days #42 tabs sennosides 8.6 mg-docusate sodium 2 tab PO BID #14 tabs 04/19/24 Unknown Rx 50 mg tablet (Stimulant Laxative Plus) Allergy/AdvReac Type Severity Reaction Status Date / Time nitrofurantoin (From Allergy PT UNSURE Verified 04/20/24 04:10 Macrodantin) OF REACTION Family History Mother Heart disease Dementia Father Lung cancer Underlying tobacco use history concurrently. Surgical History History of bilateral tubal ligation Hx of hernia repair Social History household members: spouse Smoking Status: Former smoker alcohol intake: never substance use type: does not use ROS ROS ED ROS Narrative Constitutional: Denies any fevers, chills, headaches, Yash, dizziness Eyes: Denies change in vision double vision blurry vision Cardiovascular: Denies chest pain Respiratory: Denies shortness of Abdomen: Denies abdominal pain nausea vomit diarrhea : Denies urinary symptoms Neurological: States that her leg is still numb on the right side from her surgery this is unchanged Musculoskeletal: Denies back pain complains of right hip pain as noted above Skin: Denies rashes or lesions EXAM Physical Exam Narrative Exam Narrative: General: Patient lying in bed rest comfortably did not appear to be acute distress Head: Atraumatic, Eyes: PERRL bilaterally, EOMI bilateral, no conjunctival injection noted Neck: Soft, supple, trachea midline Cardiovascular: Patient tachycardic with a regular rhythm no murmurs gallops rubs noted Respiratory: Clear to auscultation bilateral Abdomen: Soft, nondistended, nontender to palpation and bowel sounds presents for Musculoskeletal: Patient has pain with attempted range of motion of her right hip. Patient does have some tenderness palpation of the left dorsal aspect of her foot with some ecchymosis noted states that she stubbed her toe the other day Extremities: +5/5 strength noted in the bilateral upper extremities, +4/5 strength noted in the bilateral lower extremities, DP pulses +2/4 in the bilateral lower extremities Neurological: Patient following commands knew that she was at [facility] year is 2023 and that it was fall Skin: Warm, dry, patient has ecchymosis noted to the dorsal aspect of the left foot. Surgical dressing is in place no surrounding erythema no purulent drainage on the surgical dressing noted. Const Vital Signs: 04/20/24 04:11 04/20/24 04:16 Temperature 98.1 F Temperature Source Oral Pulse Rate 108 H Respiratory Rate 18 Respiratory Effort Short of Breath Labored Respiratory Depth Normal Respiratory Pattern Normal Blood Pressure 153/87 H Blood Pressure Mean 109 Pulse Ox 93 94 Oxygen Delivery Method Nasal Cannula Nasal Cannula Oxygen Flow Rate (L/min) 2 2 MDM MDM MDM Narrative Medical decision making narrative: Patient is a 73-year-old female who presents to the emergency department with a chief complaint of fall after having a total hip arthroplasty. Patient will have workup performed here on the differential diagnose clues but limited to postsurgical pain, peritrochanteric hip fracture. Once workup is obtained reviewed she will be reevaluated. Patient's x-ray of her foot reviewed and showed no acute fracture dislocations this is independently reviewed by myself as well as radiology. Patient's x-ray of her right hip and pelvis was reviewed by myself as well as radiology which showed right total hip arthroplasty no acute fracture dislocations. Had the patient attempt ambulate here in the emergency department she is able to get up and walk to the doorway and states that she would not walk any further. She is not on oxygen all the time however she does have oxygen as needed at home. She is on room air here and was 84%. I had further discussion with the patient and I feel that she should stay and I offered admission for her hypoxia and her pain control and for further PT/OT evaluation before returning home. Patient states that there is no way she is staying here in the hospital she is going home. Patient states that she does feel safe at home and wants to return home. Her son was there at bedside for discussion and he also attempted to try to convince his mother to stay in the hospital she was adamant refusing stating that she will not stay. Her son is agreeable to taking her home and bring her back with worsening symptoms or other concerns. She is advised to follow-up with Dr. Barriga in the outpatient setting at her appointment. She is advised to follow-up with her primary care physician outpatient setting. Patient did refuse to provide a urine sample states that she will provide 1 to her primary care physician if she feels that she has urinary tract infection. All question concerns answered at bedside she was discharged home in stable condition. Radiography Diagnostic Testing: Clinical Impression(s) from Imaging Studies Foot X-Ray 04/20/24 04:25 IMPRESSION: Negative left foot x-rays. Electronically Signed: Koko Singleton MD at 4:58 EDT , Hip/Pelvis X-Ray 04/20/24 04:25 IMPRESSION: 1. Right total hip arthroplasty. Components appear well seated. 2. No acute pelvic fractures. Electronically Signed: Koko Singleton MD at 4:58 EDT , Discharge Plan Triage Chief Complaint: Fall ED Provider: Radames Langford Dx/Rx/DC Orders Clinical Impression: Fall Prescriptions: No Action albuterol sulfate 2.5 mg /3 mL (0.083 %) solution for nebulization 2.5 mg inhalation Q4H PRN (Reason: shortness of breath or wheezing) Qty: 180 3RF acetaminophen 500 mg Tablet 1,000 mg PO Q8 Qty: 180 0RF aspirin 81 mg Tablet,Chewable 81 mg PO BID 42 Days Qty: 84 0RF meloxicam 7.5 mg Tablet 7.5 mg PO BIDCM Qty: 60 0RF sennosides-docusate sodium [Stimulant Laxative Plus] 8.6-50 mg Tablet 2 tab PO BID Qty: 14 0RF oxycodone 5 mg Tablet 5 - 10 mg PO .q4-6 prn PRN (Reason: Pain Score 4-10) 7 Days Qty: 42 0RF famotidine 20 mg tablet 20 mg PO DAILY Qty: 30 0RF Primary Care Provider: Josie Salmon Referrals: Josie Salmon MD [Primary Care Provider] - Activity Restrictions/Additional Instructions: Follow-up your primary care physician outpatient setting. Return with worsening symptoms or any concerns. Follow-up with Dr. Barriga in the outpatient setting. Use your oxygen at home. Print Language: Maori Disposition Disposition: Home, Self Care
--- NOTE | 2024-04-20 05:30 | ED.RN ---
AMBULATED APPROX 20 STEPS W/PT W/WALKER AND RNX2. SPO2 DECREASED AND MAINTAINED @84 DURING AMBULATION. PT CLUMSILY HANDLING WALKER; HOLDING IT OUT VERY FAR IN FRONT OF HER AND AT TIMES LIFTING THE FRONT WHEELS UP AND PUSHING THE WALKER. REQUIRES SIGNIFICANT CUEING FOR SAFE AMBULATION. PT REPEATEDLY SAYING I PASSED THIS TEST YESTERDAY THIS IS RIDICULOUS I SHOULD NOT HAVE TO DO THIS. WHEN RETURNED TO THE CHAIR IN THE ROOM, PT REQUIRED ADDITIONAL CUEING TO KEEP WALKER CLOSE TO HER AND THEN UNINTENTIONALLY DESCENDED INTO THE CHAIR INSTEAD OF LOWERING HERSELF DOWN. PT EDUCATED ON RISKS OF FALLING D/T IMPROPER USE OF WALKER, HYPOXIA, AND CONFUSION. DR CASTELLANO MADE AWARE.
--- NOTE | 2024-04-20 05:31 | ED.RN ---
This RN and Mcihelle Dasilva RN went into the patient's room to obtain the ordered UA. Patient is unable to stand and intentionally sit down on a bedside commode. The patient refused a straight cath for a sterile urine sample. notified.
== END 2024-04-20 05:55 | disposition left against medical advice (07) ==
LOC: ED 05:51
PROVIDERS: Emergency Provider Emergency Medicine; PCP Family Medicine; Visit Provider Emergency Medicine
DX: M25.551 Pain in right hip (principal); J44.9 Chronic obstructive pulmonary disease, unspecified; Z87.891 Personal history of nicotine dependence; Z96.641 Presence of right artificial hip joint; Z99.81 Dependence on supplemental oxygen; W17.89XA Other fall from one level to another, initial encounter; Z98.51 Tubal ligation status; M79.672 Pain in left foot
CPT/HCPCS: 73502; 73630; 99282

== ENCOUNTER 2024-08-18 15:01 | Inpatient (IN) | payer OTHER, MEDICARE, SELFPAY ==
[2024-08-18] VITALS (9 sets, daily range): BP systolic 135–189; BP diastolic 69–131; PULSE 96–108; RESP 16–22; TEMP 36.3–37.7; O2SAT 92–98; BMI 26.1; BMI 24.7
--- NOTE | 2024-08-18 15:35 | EKG12_ITS ---
Test Reason : Blood Pressure : */* mmHG Vent. Rate : 101 BPM Atrial Rate : 101 BPM P-R Int : 198 ms QRS Dur : 88 ms QT Int : 374 ms P-R-T Axes : 81 56 98 degrees QTcB Int : 484 ms Sinus tachycardia T wave abnormality, consider lateral ischemia Abnormal ECG Confirmed by HAYLEE NIETO MD ([id number]), scientific editor KALYAN MATHEW ([id number]) on 08/20/2024 8:00:55 AM Referred By: Drake Oliver Confirmed By: HAYLEE NIETO MD
--- NOTE | 2024-08-18 15:52 | EX.ED.DYSGE1 ---
HPI History of Present Illness Chief Complaint: Confusion Narrative Narrative: Chief complaint and HPI: Confusion. 73-year-old female with past medical history of COPD presents for evaluation of confusion. Patient is currently alert and oriented x 1 therefore poor historian. History taken by and son. Patient was started on gabapentin in April. He states since then she has been having intermittent confusion. She has never been diagnosed with dementia. They state today the patient became significantly more confused. They deny any fever, chills, shortness of breath, chest pain abdominal pain, nausea, vomiting, dysuria that they know of. Patient has no complaints and is intermittently aggravated. Family denies any falls. Review of systems: See HPI Medications: As listed on the chart Allergies: As listed on the chart PFSH: Per chart Vital signs: As listed on the chart. Reviewed. Physical exam: Gen: A&O x1, NAD Head: Normocephalic, atraumatic Eyes: No sclera icterus, conjunctiva clear, PERRL, EOMI ENT: TMs clear BL, mildly dry mucous membranes, posterior oropharynx unremarkable Neck: Trachea midline, No JVD, Full ROM CV: Tachycardic, regular rhythm, no murmurs, no peripheral edema Resp: Lungs CTA BL, no w/r/c GI: Abd soft, non-distended, non-tender, no r/r/g Musc: Full ROM, no deformity Skin: Warm, dry, no rash Neuro: Alert, oriented, grossly intact, sensation intact Psych: Cooperative, appropriate mood and affect [facility] Medical History Wears glasses Wears dentures Post-menopausal Depression Walker as ambulation aid Arthritis History of renal disease Restless legs Back pain Injury of head and neck On home oxygen therapy Asthma Shortness of breath on exertion Leg cramps History of pain when walking Abn react-surg proc NEC Hx of colonic polyp Diverticulosis of colon Unilateral primary osteoarthritis, right hip Allergic rhinitis, unspecified Labyrinthitis, right ear COPD (chronic obstructive pulmonary disease) Smoker COPD (chronic obstructive pulmonary disease) Home Medications ?Medication ?Instructions ?Recorded ?Last Taken ?Type gabapentin 300 mg capsule 300 mg PO QHS 08/18/24 08/17/24 History Allergy/AdvReac Type Severity Reaction Status Date / Time nitrofurantoin (From Allergy PT UNSURE Verified 08/18/24 15:02 Macrodantin) OF REACTION Family History Mother Heart disease Dementia Father Lung cancer Underlying tobacco use history concurrently. Surgical History History of bilateral tubal ligation Hx of hernia repair Social History (Updated 08/18/24 @ 16:19 by Cammie Kenny) household members: spouse Smoking Status: Former smoker alcohol intake: never substance use type: does not use EXAM Physical Exam Const Vital Signs: 08/18/24 15:02 08/18/24 15:19 08/18/24 16:07 Temperature 97.4 F L 97.4 F L 100 F H Temperature Source Temporal Temporal Temporal Pulse Rate 108 H 108 H 99 Respiratory Rate 17 17 18 Blood Pressure 154/86 H 154/86 H 155/131 H Blood Pressure Mean 108 108 139 Pulse Ox 98 98 92 Oxygen Delivery Method Room Air Room Air Room Air 08/18/24 17:00 08/18/24 18:00 Temperature Temperature Source Pulse Rate 97 96 Respiratory Rate 16 18 Blood Pressure 176/79 H 189/69 H Blood Pressure Mean 111 109 Pulse Ox 97 93 Oxygen Delivery Method Room Air Room Air MDM MDM MDM Narrative Medical decision making narrative: 73-year-old female with past medical history of COPD presents for evaluation of confusion. Differential diagnosis includes but is not limited to UTI, electrolyte abnormality, anemia, pneumonia, viral illness. NS bolus ordered. Laboratory workup ordered including chest x-ray. There is no signs of trauma or reported history of falls. I do think her confusion is secondary to metabolic encephalopathy. No CT head ordered at this time. NS bolus ordered. EKG and chest x-ray reviewed see below. CBC without leukocytosis or anemia. Coagulation panel unremarkable. CMP without significant electrolyte abnormality. Patient has baseline renal insufficiency. Lactic acid unremarkable. No transaminitis. Troponin unremarkable. UA negative for UTI. On reevaluation, patient's temperature is increasing. Tylenol ordered. Patient positive for influenza A. This is likely the cause of her symptoms. Tamiflu ordered. Patient will warrant admission for her encephalopathy. Patient and updated of all the results and confirmed understanding. I spoke with the hospitalist service, Dr. August. She would like to get VBG as well as CT head to assess for hypercapnia as well as intracranial abnormality. CT head without any acute intracranial abnormality. VBG without acidosis or hypercapnia. Patient admitted to the hospitalist service. EKG: Interpreted by me/EM physician:EKG shows sinus tachycardia with nonspecific T wave abnormalities. Heart rate 101. Diagnostic: Interpreted by me/EM physician: Chest x-ray without pneumonia, effusion, cardiomegaly, pneumothorax Impression: 1. Encephalopathy likely secondary to #2 2. Influenza A infection 3. Renal insufficiency Lab Data Labs: Laboratory Results - last 24 hr 08/18/24 08/18/24 08/18/24 15:10 15:42 16:08 WBC 9.0 RBC 4.91 Hgb 13.1 Hct 41.8 MCV 85.1 MCH 26.7 L MCHC 31.3 L RDW Std Deviation 42.0 RDW Coeff of Mariama 13.5 Plt Count 266 MPV 10.6 Immature Gran % (Auto) 0.400 Neut % (Auto) 86.5 H Lymph % (Auto) 5.1 L Alfalfa % (Auto) 7.4 Eos % (Auto) 0.0 Baso % (Auto) 0.6 Absolute Neuts (auto) 7.8 H Absolute Lymphs (auto) 0.46 L Nucleated RBC % 0 PT 13.5 INR 1.0 APTT 28.0 Sodium 136 Potassium 4.1 Chloride 103 Carbon Dioxide 26.0 Anion Gap 6 BUN 27 H Creatinine 1.36 H Est GFR (MDRD) Af Amer 49 L Est GFR (MDRD) Non-Af 40 L BUN/Creatinine Ratio 19.9 Glucose 126 H Lactic Acid 1.2 Calcium 9.4 Total Bilirubin 0.30 AST 28 ALT 17 Alkaline Phosphatase 115 Troponin I High Sens 18 Total Protein 8.1 Albumin 4.2 Globulin 3.9 Albumin/Globulin Ratio 1.1 Urine Color Yellow Urine Clarity Clear Urine pH 5.0 Ur Specific Preston 1.015 Urine Protein 30 H Urine Glucose (UA) Normal Urine Ketones Negative Urine Occult Blood 150 H Urine Nitrite Negative Urine Bilirubin Negative Urine Urobilinogen Normal Ur Leukocyte Esterase Negative Urine RBC 0-5 SEEN Urine WBC 0 SEEN Ur Squamous Epith Cells 0-5 SEEN Urine Bacteria 0 SEEN Urine Mucus 0 SEEN Radiography Diagnostic Testing: Clinical Impression(s) from Imaging Studies Chest X-Ray 08/18/24 16:40 IMPRESSION: No active cardiopulmonary disease. [facility] 08/18/24 17:37 IMPRESSION: No acute intracranial abnormalities. One or more dose reduction techniques were used (e.g., Automated exposure control, adjustment of the mA and/or kV according to patient size, use of iterative reconstruction technique). Reading Location: [id number] Discharge Plan Disposition Disposition: Acute Care Hospital [facility] Discharge Date/Time: 08/18/24 20:13
[2024-08-18 15:55] LABS: Absolute Lymphocyte Count 0.46 X10^3/uL (0.83-4.51); Absolute Neutrophil Count 7.8 X10^3/uL (2.0-7.7); Basophil# 0.05 X10^3/uL; Basophil% 0.6 % (0-1); Hematocrit 41.8 % (37-47); Hemoglobin 13.1 g/dL (12.0-15.0); Lymphocyte # 0.46 X10^3/ul (0.83-4.51); Lymphocyte % 5.1 % (19-41); Mean Corp Hgb Conc 31.3 g/dL (32-36); Mean Corpuscular Hgb 26.7 pg (27.0-32.0); Mean Corpuscular Volume 85.1 fL (81-99); Mean Platelet Vol. 10.6 fl (6.2-12.0); Monocyte# 0.66 X10^3/uL; Monocyte% 7.4 % (0-10); NRBC Flagged by Analyzer 0 % (0-5); Neutrophil # 7.76 X10^3/uL (2.7-7.7); Neutrophil % 86.5 % (47-70); POSITIVE DIFFERENTIAL YES; Platelet Count 266 K/mm3 (150-450); RBC Distribution Width CV 13.5 % (11.6-14.6); Red Blood Count 4.91 M/mm3 (4.2-5.4)
[2024-08-18 16:05] LABS: Prothrombin Time (Protime)PT. 13.5 SECONDS (11.7-14.9)
[2024-08-18 16:12] LABS: ALB/GLOB Ratio 1.1 RATIO (0.9-2.4); AST(SGOT) 28 U/L (15-37); Alanine Aminotransfer ALT/SGPT 17 U/L (13-56); Albumin, Serum 4.2 g/dL (3.2-5.0); Alkaline Phosphatase 115 U/L (45-117); Anion Gap 6 (5-15); BUN 27 mg/dL (7-18); BUN/Creat Ratio 19.9 RATIO (10-20); Calcium,Total 9.4 mg/dL (8.5-10.1); Chloride 103 mmol/L (98-107); Creatinine, Serum 1.36 mg/dL (0.55-1.02); EST Glomerular Filtration Rate 40 mL/min (>60); Est Glom Filt Rate - Afr Amer 49 mL/min (>60); Globulin 3.9 g/dL (2.2-4.2); Glucose 126 mg/dL (74-106); Potassium 4.1 mmol/L (3.5-5.1); Protein, Total 8.1 g/dL (6.4-8.2); Sodium Level 136 mmol/L (136-145); Troponin-I HS 18 pg/mL (3.0-54.0)
[2024-08-18] MEDS: 0.9% Normal Saline (1000mL) 1,000 ML 1000 ML IV (16:13)
[2024-08-18 16:26] LABS: Lactic Acid 1.2 mmol/L (0.4-1.9)
[2024-08-18 16:37] LABS: Bacteria 0 SEEN /hpf (None Seen); Mucous, Urine 0 SEEN /hpf (<or=2+); White Blood Cells 0 SEEN /hpf (0-5)
--- NOTE | 2024-08-18 16:40 | RAD_ITS ---
PROCEDURE: CHEST PA AND LATERAL REASON FOR EXAM: Confusion. TECHNIQUE: PA and lateral chest. COMPARISON: Prior chest dated 02/03/2024 not available for comparison at the present time. FINDINGS: Lungs are clear of pneumonia and congestion. No pleural effusions, thickening, or pneumothorax. Heart and mediastinum are normal. Mildly atherosclerotic and tortuous. No hilar masses. Multilevel spondylosis. Cardiac monitoring leads overlie the chest wall. RAD/Chest PA and Lateral IMPRESSION: No active cardiopulmonary disease. Reading Location: [facility]
[2024-08-18 16:52] LABS: Color, Urine Yellow (Yellow); Glucose, Dipstick Normal (Normal); Ketone-Dipstick Negative (Negative); Leukocyte Esterase-Dipstick Negative /ul (Negative); Nitrite-Dipstick Negative (Negative); Occult Blood-Urine 150 /ul (Negative); Protein-Dipstick 30 mg/dl (Negative); Specific Gravity, Urine 1.015 (1.002-1.030); Urine Bilirubin Dipstick Negative (Negative); Urine Clarity Clear (Clear); Urine Urobilinogen Normal (Normal)
[2024-08-18 17:17] LABS: Red Blood Cells-Urine 0-5 SEEN /hpf (0-5); Squamous Epithelial Cells - UA 0-5 SEEN /hpf (5-10)
--- NOTE | 2024-08-18 17:37 | CT_ITS ---
PROCEDURE: BRAIN/HEAD WITHOUT CONTRAST REASON FOR EXAM: Confusion. TECHNIQUE: CT of the head without contrast was performed. COMPARISON: None. FINDINGS: Moderate global parenchymal atrophy chronic microvascular ischemia. Bilateral basal nucleus chronic lacunar infarctions. No evidence of acute hemorrhage or infarction. No extra-axial blood or fluid collections. The paranasal sinuses are clear. The calvarial vault and skull base are intact. CT/Brain/Head without Contrast IMPRESSION: No acute intracranial abnormalities. One or more dose reduction techniques were used (e.g., Automated exposure contr ol, adjustment of the mA and/or kV according to patient size, use of iterative reconstruction technique). Reading Location: [id number]
[2024-08-18] MEDS: hydrALAZINE 20 MG/ML Vial 10 MG IV (18:10)
[2024-08-18] MEDS: Oseltamivir Phosphate 75 MG Capsule PO (18:11)
[2024-08-18] MEDS: Acetaminophen 325 MG Tablet 650 MG PO (18:11)
--- NOTE | 2024-08-18 18:24 | HP.PCM.HOS_ITS ---
HPI - General General Date of Admission: 08/18/24 Date of Service: 08/18/24 Chief Complaint: AMS HPI Narrative SHILA NICOLE, is a 73-year-old female with a history of GERD and COPD presented [facility] ED 08/18/2024 for confusion. Patient was started on gabapentin in April and since then has been having intermittent confusion but today she became significantly more confused. In the ED heart rate 108 with blood pressure 154/86, 98% on room air and temperature 97.4. CBC unremarkable. BMP with BUN of 27 and creatinine 1.36 which is similar to baseline, troponin 18 and lactic acid 1.2. She is found to be influenza a positive but otherwise workup noncontributory. CT head official read pending but no overt abnormalities appreciated. Given patient's worsened confusion and it not felt to be safe for patient to go home hospitalist contacted for admission. Discussed with patient's family at bedside who reports that she has been increasingly forgetful over the past 4 months or so and has had intermittent bouts of worsened confusion however today she was much worse and was only oriented to self and did not know who the president was despite how much she loves him and usually would be able to recall who that was even if she was somewhat confused. Patient has remained similarly confused since being in the ED without improvement or worsening. Family did not note any specific acute complaints she had, discussed with patient who closed her eyes and would not attempt to answer orientation questions, said no to any ROS asked but did not seem to be accurately answering this and just continue to say no [facility] Medical History Wears glasses Wears dentures Post-menopausal Depression Walker as ambulation aid Arthritis History of renal disease Restless legs Back pain Injury of head and neck On home oxygen therapy Asthma Shortness of breath on exertion Leg cramps History of pain when walking Abn react-surg proc NEC Hx of colonic polyp Diverticulosis of colon Unilateral primary osteoarthritis, right hip Allergic rhinitis, unspecified Labyrinthitis, right ear COPD (chronic obstructive pulmonary disease) Smoker COPD (chronic obstructive pulmonary disease) Home Medications ?Medication ?Instructions ?Recorded ?Last Taken ?Type albuterol sulfate 2.5 mg/3 mL 2.5 mg (3 mL) inhalation Q4H PRN 10/13/23 04/17/24 21:00 Rx (0.083 %) solution for nebulization shortness of breat h or wheezing #180 mL acetaminophen 500 mg tablet 1,000 mg (2 x 500 mg) PO Q 8 #180 04/19/24 Unknown Rx tabs aspirin 81 mg chewable tablet 81 mg PO BID 6 weeks #84 tabs 04/19/24 Unknown Rx famotidine 20 mg tablet 20 mg PO DAILY #30 tabs 10/0 03/05 Unknown Rx meloxicam 7.5 mg tablet 7.5 mg PO BIDCM #60 tabs 03/05 Unknown Rx oxycodone 5 mg tablet 5 - 10 mg (1 - 2 x 5 mg) PO .q4-6 04/19/24 Unknown Rx prn PRN Pain Score 4-10 7 days #42 tabs sennosides 8.6 mg-docusate sodium 2 tab PO BID #14 tab s 04/19/24 Unknown Rx 50 mg tablet (Stimulant Laxative Plus) Allergy/AdvReac Type Severity Reaction Status Date / Time nitrofurantoin (From Allergy PT UNSURE Verified 08/18/24 15:02 Macrodantin) OF REACTION Family History Mother Heart disease Dementia Father Lung cancer Underlying tobacco use history concurrently. Surgical History History of bilateral tubal ligation Hx of hernia repair Social History (Updated 08/18/24 @ 16:19 by Cammie Kenny) household members: spouse Smoking Status: Former smoker alcohol intake: never substance use type: does not use ROS ROS Narrative Unable to accurately obtain secondary to patient's mental status Vital Signs Vital Signs Vital Signs: 08/18/24 15:02 08/18/24 15:19 08/18/24 16:07 Temperature 97.4 F L 97.4 F L 100 F H Temperature Source Temporal Temporal Temporal Pulse Rate 108 H 108 H 99 Respiratory Rate 17 17 18 Blood Pressure 154/86 H 154/86 H 155/131 H Blood Pressure Mean 108 108 139 Pulse Ox 98 98 92 Oxygen Delivery Method Room Air Room Air Room Air 08/18/24 17:00 08/18/24 18:00 Temperature Temperature Source Pulse Rate 97 96 Respiratory Rate 16 18 Blood Pressure 176/79 H 189/69 H Blood Pressure Mean 111 109 Pulse Ox 97 93 Oxygen Delivery Method Room Air Room Air Physical Exam Narrative General: Awake upon entering the room, when asking orientation questions closed eyes and would not respond but would give one-word answers when then asking any other questions HEENT: Atraumatic, normocephalic Eyes: Anicteric, normal conjunctiva, extraocular movements grossly intact Neck: Supple Respiratory: Did not appreciate any overt wheezes or rhonchi, normal respiratory effort Cardiovascular: Regular rate GI: Soft, nontender, nondistended Extremities: No edema Musculoskeletal: Moving all extremities in bed Neuro: No overt focal neurological deficits however unable to cooperate with neuroexam Skin: No rashes appreciated Psych: Uncooperative Results Lab / Micro Data 08/18/24 15:10 08/18/24 15:10 Labs: Laboratory Results - last 24 hr 08/18/24 15:10: WBC 9.0, RBC 4.91, Hgb 13.1, Hct 41.8, MCV 85.1, MCH 26.7 L, M CHC 31.3 L, RDW Std Deviation 42.0, RDW Coeff of Mariama 13.5, Plt Count 266, MPV 10.6, Immature Gran % (Auto) 0.400, Neut % (Auto) 86.5 H, Lymph % (Auto) 5.1 L, [place] % (Auto) 7.4, Eos % (Auto) 0.0, Baso % (Auto) 0.6, Absolute Neuts (auto) 7.8 H, Absolute Lymphs (auto) 0.46 L, Nucleated RBC % 0, PT 13.5, INR 1.0, APTT 28.0, Sodium 136, Potassium 4.1, Chloride 103, Carbon Dioxide 26.0, Anion Gap 6, BUN 27 H, Creatinine 1.36 H, Est GFR (MDRD) Af Amer 49 L, Est GFR (MDRD) Non-Af 40 L, BUN/Creatinine Ratio 19.9, Glucose 126 H, Calcium 9.4, Total Bilirubin 0.30, AST 28, ALT 17, Alkaline Phosphatase 115, Troponin I High Sens 18, Total Protein 8.1, Albumin 4.2, Globulin 3.9, Albumin/Globulin Ratio 1.1 08/18/24 15:42: Lactic Acid 1.2 08/18/24 16:08: Urine Color Yellow, Urine Clarity Clear, Urine pH 5.0, Ur Specific [place] 1.015, Urine Protein 30 H, Urine Glucose (UA) Normal, Urine Ketones Negative, Urine Occult Blood 150 H, Urine Nitrite Negative, Urine Bilirubin Negative, Urine Urobilinogen Normal, Ur Leukocyte Esterase Negative, Urine RBC 0-5 SEEN, Urine WBC 0 SEEN, Ur Squamous Epith Cells 0-5 SEEN, Urine Bacteria 0 SEEN, Urine Mucus 0 SEEN Micro: Microbiology 08/18/24 15:42 Mucosa - Nose SARS-CoV-2, Influenza & RSV (PCR) - Final Influenzae A Imaging Radiology Impression Chest X-Ray 08/18/24 16:40 IMPRESSION: No active cardiopulmonary disease. Reading Location: [facility] Assessment & Plan Assessment/Plan (1) AMS (altered mental status): PLAN: Plan #AMS-toxic encephalopathy versus hyperactive delirium secondary to influenza A infection -Given family report suspect that patient may be delirious secondary to influenza A infection -Sounds as though she may have some underlying memory/cognitive deficits as well -Given the report of gabapentin causing some intermittent confusion as well this may be a contributor to presentation -CT head read pending however no gross abnormalities appreciated -UA not overtly infectious -Will check TSH -Lab workup otherwise unremarkable -Will check blood gas to assess for any CO2 retention given presentation though suspect this is less likely culprit than the above -Will schedule melatonin and additionally schedule Risperdal, can discontinue on discharge home patient improved -Family denies patient has any alcohol or substance use history # Hypertensive urgency -Reportedly before my evaluation patient very agitated in the ED, systolic blood pressures 180s to 190s -Hydralazine as needed -If patient jennifer hypertensive can consider adding daily medication #Hx COPD -Continue as needed nebs # CKD stage III b -Appears to be at baseline -Avoid nephrotoxic agents -Daily BMPs #DVT ppx: Heparin subcu Rosalind August MD Time spent in the patient's overall evaluation, decision-making process, review of diagnostic data, adjustment of management, discussion with other providers, nursing and ancillary staff involved in patient's care documentation, 57 Minutes Charges/Coding Visit Charges Inpatient E&M: 81962 Init Hosp L2
[2024-08-18 18:46] LABS: Blood Gas Specimen Type VEN; O2 Delivery Device Not entered; SITE Not entered; VBG BASE EXCESS -4 mmol/L (-1.0-3.5); VBG Bicarbonate 21 mmol/L (22-26); VBG PO2 46 mmHg (25-40); VBG SO2 81 % (50-70); VBG TCO2 23 mmol/L (23-33); VBG pCO2 36.4 mmHg (41-51); VBG pH 7.38 (7.32-7.42)
[2024-08-18] MEDS: 0.9% Normal Saline (1000mL) 1,000 ML 75 ML IV (20:50)
[2024-08-18] MEDS: MELATONIN 10 MG TABLET PO (21:56)
[2024-08-18] MEDS: RisperiDONE 0.25 MG Tablet PO (21:56)
--- NOTE | 2024-08-19 00:45 | PCM.HOSP.N ---
Hospitalist Note Patient with ongoing agitation despite low-dose Risperdal initiated. Given no effect will trial Seroquel to see if more effective, low-dose x 1.
[2024-08-19] MEDS: QUEtiapine 25 MG Tablet PO (00:56)
[2024-08-19] MEDS: Ondansetron 4 MG/2 ML Vial IV (01:28)
[2024-08-19] MEDS: Haloperidol Lactate 5 MG/ML Vial 1 MG IM ×2 (01:28→19:52)
[2024-08-19] MEDS: 0.9% Saline Lock 10 ML Syringe IV (01:28)
[2024-08-19 02:51] VITALS: BP 148/79; PULSE 89; RESP 16; TEMP 36.5; O2SAT 95
[2024-08-19 06:42] LABS: Absolute Lymphocyte Count 0.71 X10^3/uL (0.83-4.51); Absolute Neutrophil Count 4.1 X10^3/uL (2.0-7.7); Basophil# 0.02 X10^3/uL; Basophil% 0.4 % (0-1); Hematocrit 39.8 % (37-47); Hemoglobin 12.1 g/dL (12.0-15.0); Lymphocyte # 0.71 X10^3/ul (0.83-4.51); Mean Corp Hgb Conc 30.4 g/dL (32-36); Mean Corpuscular Hgb 25.8 pg (27.0-32.0); Mean Corpuscular Volume 84.9 fL (81-99); Monocyte# 0.62 X10^3/uL; Monocyte% 11.4 % (0-10); NRBC Flagged by Analyzer 0 % (0-5); Neutrophil # 4.09 X10^3/uL (2.7-7.7); Neutrophil % 74.8 % (47-70); Platelet Count 207 K/mm3 (150-450); RBC Distribution Width CV 13.7 % (11.6-14.6); RBC Distribution Width SD 42.3 fl (35.1-43.9); Red Blood Count 4.69 M/mm3 (4.2-5.4); White Blood Count 5.5 K/mm3 (4.4-11.0)
[2024-08-19 07:17] VITALS: O2SAT 95
[2024-08-19 07:28] LABS: Anion Gap 8 (5-15); BUN 20 mg/dL (7-18); BUN/Creat Ratio 19.4 RATIO (10-20); Calcium,Total 9.1 mg/dL (8.5-10.1); Chloride 105 mmol/L (98-107); Creatinine, Serum 1.03 mg/dL (0.55-1.02); EST Glomerular Filtration Rate 56 mL/min (>60); Est Glom Filt Rate - Afr Amer 67 mL/min (>60); Estimated Creatinine Clearance 40.28 ml/min; Glucose 113 mg/dL (74-106); Potassium 3.7 mmol/L (3.5-5.1); Sodium Level 136 mmol/L (136-145); Thyroid Stim Hormone (TSH) 0.447 uIU/mL (0.358-3.740)
[2024-08-19 08:46] VITALS: BP 149/79; PULSE 94; RESP 20; TEMP 37.2; O2SAT 94
[2024-08-19] MEDS: RisperiDONE 0.25 MG Tablet PO (08:57)
--- NOTE | 2024-08-19 09:13 | PN.HOSP_ITS ---
Reason for Visit Reason for Visit: Diagnoses Altered mental status, unspecified (08/18/24) Subjective Subjective Patient is a 73-year-old female who was brought to the emergency department by the family with increasing confusion. Patient tested positive for influenza A virus admitted to regular nursing floor for further management Objective Data Objective Data Vital Signs: Vital Signs Temp Pulse Resp BP Pulse Ox O2 Del Method 99.0 F 94 20 H 149/79 H 94 Room Air 08/19/24 08:46 08/19/24 08:46 08/19/24 08:46 08/19/24 08:46 08/19/24 08:46 08/19/24 08:46 Oxygen Delivery Method Room Air Weight: 59.421 kg Body Mass Index (BMI) 24.7 Intake & Output: Intake and Output for Last 24 Hours 08/17/24 08/18/24 08/19/24 23:59 23:59 23:59 Intake Total 1240 / 1240 Balance 1240 / 1240 Lab / Micro Data 08/19/24 06:05 08/19/24 06:05 Labs: Laboratory Results - last 24 hr 08/18/24 15:10: WBC 9.0, RBC 4.91, Hgb 13.1, Hct 41.8, MCV 85.1, MCH 26.7 L, M CHC 31.3 L, RDW Std Deviation 42.0, RDW Coeff of Mariama 13.5, Plt Count 266, MPV 10.6, Immature Gran % (Auto) 0.400, Neut % (Auto) 86.5 H, Lymph % (Auto) 5.1 L, [place] % (Auto) 7.4, Eos % (Auto) 0.0, Baso % (Auto) 0.6, Absolute Neuts (auto) 7.8 H, Absolute Lymphs (auto) 0.46 L, Nucleated RBC % 0, PT 13.5, INR 1.0, APTT 28.0, Sodium 136, Potassium 4.1, Chloride 103, Carbon Dioxide 26.0, Anion Gap 6, BUN 27 H, Creatinine 1.36 H, Est GFR (MDRD) Af Amer 49 L, Est GFR (MDRD) Non-Af 40 L, BUN/Creatinine Ratio 19.9, Glucose 126 H, Calcium 9.4, Total Bilirubin 0.30, AST 28, ALT 17, Alkaline Phosphatase 115, Troponin I High Sens 18, Total Protein 8.1, Albumin 4.2, Globulin 3.9, Albumin/Globulin Ratio 1.1 08/18/24 15:42: Lactic Acid 1.2 08/18/24 16:08: Urine Color Yellow, Urine Clarity Clear, Urine pH 5.0, Ur Specific [place] 1.015, Urine Protein 30 H, Urine Glucose (UA) Normal, Urine Ketones Negative, Urine Occult Blood 150 H, Urine Nitrite Negative, Urine Bilirubin Negative, Urine Urobilinogen Normal, Ur Leukocyte Esterase Negative, Urine RBC 0-5 SEEN, Urine WBC 0 SEEN, Ur Squamous Epith Cells 0-5 SEEN, Urine Bacteria 0 SEEN, Urine Mucus 0 SEEN 08/19/24 06:05: WBC 5.5, RBC 4.69, Hgb 12.1, Hct 39.8, MCV 84.9, MCH 25.8 L, M CHC 30.4 L, RDW Std Deviation 42.3, RDW Coeff of Mariama 13.7, Plt Count 207, MPV 10.0, Immature Gran % (Auto) 0.400, Neut % (Auto) 74.8 H, Lymph % (Auto) 13.0 L, [place] % (Auto) 11.4 H, Eos % (Auto) 0.0, Baso % (Auto) 0.4, Absolute Neuts (auto) 4.1, Absolute Lymphs (auto) 0.71 L, Nucleated RBC % 0, Sodium 136, Potassium 3.7, Chloride 105, Carbon Dioxide 24.0, Anion Gap 8, BUN 20 H, Creatinine 1.03 H , Estim Creat Clear Calc 40.28, Est GFR (MDRD) Af Amer 67, Est GFR (MDRD) Non-Af 56 L, BUN/Creatinine Ratio 19.4, Glucose 113 H, Calcium 9.1, TSH 0.447 Micro: Microbiology 08/18/24 15:42 Mucosa - Nose SARS-CoV-2, Influenza & RSV (PCR) - Final Influenzae A ABG Data ABG results: ABG 08/18/24 18:42 Specimen Type GENA Sample Site Not entered VBG pH 7.38 VBG pO2 46 H VBG HCO3 21 L VBG Total CO2 23 VBG O2 Sat (Calc) 81 H VBG Base Excess -4 L POC Mix VBG pCO2 Pt Tmp 36.4 L O2 Delivery Device Not entered Radiography Diagnostic Testing: Radiology Impression Chest X-Ray 08/18/24 16:40 IMPRESSION: No active cardiopulmonary disease. Reading Location: ANA Brain CT 08/18/24 17:37 IMPRESSION: No acute intracranial abnormalities. One or more dose reduction techniques were used (e.g., Automated exposure control, adjustment of the mA and/or kV according to patient size, use of iterative reconstruction technique). Reading Location: [facility] Physical Exam Narrative GENERAL: Patient is sleepy while being intubated HEENT: Atraumatic; normocephalic EYES; Anicteric, Normal Conjunctiva NECK; supple, normal thyroid, RESPIRATORY: Diminished to auscultation CARDIOVASCULAR: Regular S1 S2, GI: soft, normoactive bowel sounds, : No Renal angle tenderness; EXTREMITIES: No edema, no clubbing, MUSCULOSKELETAL: no muscle wasting NEURO: no lateralizing signs. SKIN: No Rash PSYCH; lethargic Assessment & Plan Assessment/Plan (1) AMS (altered mental status): PLAN: Plan Patient is a 73-year-old female who was brought to the emergency department by the family with increasing confusion. Patient tested positive for influenza A virus admitted to regular nursing floor for further management 1. Acute metabolic encephalopathy ? Secondary to acute influenza A virus infection as well as suspected toxic encephalopathy from patient home meds admitted to regular nursing floor for treatment of underlying etiology 2. Acute influenza A infection ?Patient started on Tamiflu in addition to tabetic management 3. Acute hypertensive urgency ? Patient blood pressure in the emergency department were in the 180s to 190s. Patient not on any scheduled antihypertensives. Started on amlodipine in addition to hydralazine as needed systolic blood pressure greater than 160 4. COPD aerosol treatments as needed 5. Tobacco dependence ? Counseled on cessation, offered nicotine patch for tobacco cravings 6. Chronic kidney disease stage B ? Kidney function at baseline plan is to avoid potential nephrotoxic medication 7.DVT prophylaxis ? Subcu hep Time spent in the patient's overall evaluation, decision-making process, review of diagnostic data, adjustment of management, discussion with other providers, nursing and ancillary staff involved in patient's care documentation, 50 Minutes Charges/Coding Visit Charges Inpatient E&M: 27256 Subs Hosp L3
[2024-08-19] MEDS: Heparin Injection (Vial) 5,000 UNIT/ML VIAL 5000 UNIT SC (09:56)
[2024-08-19] MEDS: amLODIPine 5 MG Tablet PO (09:56)
[2024-08-19] MEDS: Oseltamivir Phosphate 30 MG Capsule PO (09:56)
[2024-08-19 09:59] VITALS: PULSE 90
--- NOTE | 2024-08-19 11:13 | CASEMGMT ---
Discharge Planning A list of?HH providers including quality and resource use data and consistent with the patient's preferred geographic region, medical needs, and insurance network was created in [employer] Guide.? This list was provided to the pts . He requested referrals to all on list. RN CM updated. Zuleika Vazquez, Discharge Planning Asst.
--- NOTE | 2024-08-19 11:23 | CASEMGMT ---
RN MADINA Assessment Face to Face with patient for initial transition planning/care coordination assessment. Pt is currently sleeping. Pt at bedside who is willing to help answer this ROLA PAINTER questions for assessment. Care providers, pharmacy, and demographics verified. Admitting dx: Toxic vs Metabolic Encephalopathy LACE Strata: 2 PCP: Josie Salmon Specialists: Nithya (Ortho) Preferred Pharmacy: [facility] Insurance: [employer] Prescription Benefit: Yes LNOK: Christos Vasquez (H), Zoie Smith (Daughter) Living Arrangements: Pt lives with her and son in a single story trailer with 5 steps to enter ADLs/IADLs: states that the pt had a hip replacement x 4 months ago and has been needing to help the pt a lot. Transportation: , family DME: Home oxygen through [employer] Amandeep from [employer] confirms that the pt current order is 2L with exertion only. Pt states that the pt has a concentrator and portable tanks. Pt's current pulse ox is broken but pt states that they can afford another. Pt states that the pt quit smoking x 7 months ago and that the pt has not been needing the oxygen since. Pt also has a FWW, nebulizer, Cane, and quad cane. HHC/SNF: Denies skilled HH or SNF hx. Pt recently quit going to OP Tx through [facility]. Pt states that the pt was supposed to continue exercises at home but has not. Pt?s goal: TBD Plan: Anticipate home with HH. Follow for additional oxygen needs. Pt was present during the pt's therapy session and states that he feels safe with the pt returning home with his help at the time of DC. Pt states that he would like HH set up for the pt. Pt notified that CM will provide him with a list of local in-network HHC agencies. Pt thanks this RN MADINA and denies further concerns at this time. Report given to HAIR CANELA CM. Colin Alaniz RN, CM
--- NOTE | 2024-08-19 11:31 | CASEMGMT ---
Addendum entered by Zuleika Vazquez 08/19/24 12:33: All agencies but [facility] declined. Family was agreeable to proceed with the. Will updated and asked to reach out to pts daughter (Zoie) to schedule eval (pts confused and overwhelmed). ROLA PAINTER updated. Zuleika Vazquez DC Planning Asst. Original Note: HH referral sent to [facility], [facility], [facility], [facility], and . Zuleika Vazquez DC Planning Asst.
[2024-08-19 14:13] VITALS: BP 138/82; PULSE 98; RESP 20; TEMP 37.3; O2SAT 93
[2024-08-19 14:19] VITALS: PULSE 90; O2SAT 92
--- NOTE | 2024-08-19 19:32 | PCM.HOSP.N ---
Hospitalist Note Patient again agitated, refusing to take Risperdal scheduled, will dose with IM Haldol x 1 now.
--- NOTE | 2024-08-19 19:34 | NURSING ---
nursing supv notified of pt behavior, floor aide sitting with pt, notified
[2024-08-20] MEDS: Haloperidol Lactate 5 MG/ML Vial 1 MG IM (00:55)
--- NOTE | 2024-08-20 07:38 | PCM.PN.HOSP ---
Reason for Visit Reason for Visit: Diagnoses Altered mental status, unspecified (08/19/24) Objective Data Objective Data Vital Signs: Vital Signs Temp Pulse Resp BP Pulse Ox O2 Del Method 99.1 F 90 20 H 138/82 H 92 Room Air 08/19/24 14:13 08/19/24 14:19 08/19/24 14:13 08/19/24 14:13 08/19/24 14:19 08/19/24 14:19 Oxygen Delivery Method Room Air Weight: 59.421 kg Body Mass Index (BMI) 24.7 Intake & Output: Intake and Output for Last 24 Hours 08/18/24 08/19/24 08/20/24 23:59 23:59 23:59 Intake Total 1240 / 1240 1000 / 1000 200 / 200 Balance 1240 / 1240 1000 / 1000 200 / 200 Lab / Micro Data 08/19/24 06:05 08/19/24 06:05 Micro: Microbiology 08/18/24 16:08 Urine, Catheterized Urine Culture - Final Culture exhibits no growth. 08/18/24 15:42 Mucosa - Nose SARS-CoV-2, Influenza & RSV (PCR) - Final Influenzae A Physical Exam Narrative GENERAL: Patient is sleepy while being interviewed HEENT: Atraumatic; normocephalic EYES; Anicteric, Normal Conjunctiva NECK; supple, normal thyroid, RESPIRATORY: Diminished to auscultation CARDIOVASCULAR: Regular S1 S2, GI: soft, normoactive bowel sounds, : No Renal angle tenderness; EXTREMITIES: No edema, no clubbing, MUSCULOSKELETAL: no muscle wasting NEURO: no lateralizing signs. SKIN: No Rash PSYCH; lethargic Assessment & Plan Assessment/Plan (1) AMS (altered mental status): PLAN: Plan Patient is a 73-year-old female who was brought to the emergency department by the family with increasing confusion. Patient tested positive for influenza A virus admitted to regular nursing floor for further management 1. Acute metabolic encephalopathy ? Secondary to acute influenza A virus infection as well as suspected toxic encephalopathy from patient home meds admitted to regular nursing floor for treatment of underlying etiology 2. Acute influenza A infection ?Patient started on Tamiflu in addition to tabetic management 3. Acute hypertensive urgency ? Patient blood pressure in the emergency department were in the 180s to 190s. Patient not on any scheduled antihypertensives. Started on amlodipine in addition to hydralazine as needed systolic blood pressure greater than 160 4. COPD aerosol treatments as needed 5. Tobacco dependence ? Counseled on cessation, offered nicotine patch for tobacco cravings 6. Chronic kidney disease stage B ? Kidney function at baseline plan is to avoid potential nephrotoxic medication 7.DVT prophylaxis ? Subcu hep Time spent in the patient's overall evaluation, decision-making process, review of diagnostic data, adjustment of management, discussion with other providers, nursing and ancillary staff involved in patient's care documentation, 50 Minutes
[2024-08-20] MEDS: amLODIPine 5 MG Tablet PO (08:04)
[2024-08-20] MEDS: Oseltamivir Phosphate 30 MG Capsule PO (08:05)
[2024-08-20 08:16] VITALS: BP 138/80; PULSE 86; RESP 18; TEMP 36.7; O2SAT 95
--- NOTE | 2024-08-20 09:07 | PCM.DC.SUM ---
Providers Date of Admission: 08/19/24 Date of Discharge: 08/20/24 Primary Care Physician: Josie Salmon MD Reason For Visit: TOXIC VS METABOLIC ENCEPHALOPATHY Diagnosis Discharge Diagnosis (1) AMS (altered mental status): Status: Acute Code(s): R41.82 - Altered mental status, unspecified Plan Patient is a 73-year-old female who was brought to the emergency department by the family with increasing confusion. Patient tested positive for influenza A virus admitted to regular nursing floor for further management 1. Acute metabolic encephalopathy ? Secondary to acute influenza A virus infection as well as suspected toxic encephalopathy from patient home meds admitted to regular nursing floor for treatment of underlying etiology 2. Acute influenza A infection ?Patient started on Tamiflu in addition to tabetic management 3. Acute hypertensive urgency ? Patient blood pressure in the emergency department were in the 180s to 190s. Patient not on any scheduled antihypertensives. Started on amlodipine in addition to hydralazine as needed systolic blood pressure greater than 160 4. COPD aerosol treatments as needed 5. Tobacco dependence ? Counseled on cessation, offered nicotine patch for tobacco cravings 6. Chronic kidney disease stage B ? Kidney function at baseline plan is to avoid potential nephrotoxic medication 7.DVT prophylaxis ? Subcu hep Time spent in the patient's overall evaluation, decision-making process, review of diagnostic data, adjustment of management, discussion with other providers, nursing and ancillary staff involved in patient's care documentation, 35 Minutes Medications at Discharge Home Medications acetaminophen 325 mg tablet 650 mg (2 x 325 mg) PO Q6H PRN PRN Pain 1-10 Or Fever >100.7 #0 tabs 08/20/24 amlodipine 5 mg tablet 5 mg PO DAILY #90 tabs 08/20/24 gabapentin 300 mg capsule 100 mg (0.3333 x 300 mg) PO QHS #1 cap 08/20/24 melatonin 10 mg sublingual tablet 10 mg PO QHS #30 tabs 08/20/24 oseltamivir 30 mg capsule 30 mg PO BID #6 caps 08/20/24 Physical Exam Narrative GENERAL: Cooperative HEENT: Atraumatic; normocephalic EYES; Anicteric, Normal Conjunctiva NECK; supple, normal thyroid, RESPIRATORY: Diminished to auscultation CARDIOVASCULAR: Regular S1 S2, GI: soft, normoactive bowel sounds, : No Renal angle tenderness; EXTREMITIES: No edema, no clubbing, MUSCULOSKELETAL: no muscle wasting NEURO: no lateralizing signs. SKIN: No Rash PSYCH; appropriate affect Weight / BMI Weight Weight: 59.421 kg Body Mass Index (BMI) 24.7 ABG / Lab / Microbiology Data 08/19/24 06:05 08/19/24 06:05 Microbiology: Microbiology 08/18/24 16:08 Urine, Catheterized Urine Culture - Final Culture exhibits no growth. 08/18/24 15:42 Mucosa - Nose SARS-CoV-2, Influenza & RSV (PCR) - Final Influenzae A D/C Instructions Discharge Diet: No restrictions Discharge Activity: Return to Normal Activity Call your doctor if you observe: Fever of 101 or Higher, Shortness of breath, Fainting spells and Chest pain DC O2, CPAP, BIPAP Needs Home O2 Discharge instructions: No Meaningful Use Info Meaningful Use Meaningful Use Diagnoses (Choose all that apply): None applicable Ischemic Stroke Statin Dosing Therapy Reference: STATIN DOSE THERAPY REFERENCE: * Patients > 75 years receive moderate or high dose statin therapy. * Patients 75 years or YOUNGER should receive HIGH intensity statin dose unless contraindicated. You will be required to document reason for non-treatment if statin daily dose does not meet guidelines. HIGH DOSE STATIN THERAPY DAILY Atorvastatin > than or = to 40 mg Rosuvastatin > than or = to 20 mg Amlodipine + Atorvastatin > than or = to 2.5/40 mg Ezetimibe + Simvastatin 10/80 mg Simvastatin 80mg Discharge Plan Admission Admit Date/Time: 08/19/24 11:28 Attending Provider: Dixon Avila Primary Care Provider: Josie Salmon Consulting Providers: Rosalind August Discharge Orders/Prescriptions Prescriptions: New melatonin 10 mg Tablet, Sublingual 10 mg PO QHS Qty: 30 0RF acetaminophen 325 mg Tablet 650 mg PO Q6H PRN PRN (Reason: Pain 1-10 Or Fever >100.7) Qty: 0 0RF oseltamivir 30 mg Capsule 30 mg PO BID Qty: 6 0RF amlodipine 5 mg Tablet 5 mg PO DAILY Qty: 90 0RF Changed gabapentin 300 mg capsule 100 mg PO QHS Qty: 1 0RF Referrals / Follow Up: Josie Salmon MD [Primary Care Provider] - Within 2 Weeks Disposition Disposition (needs filled in before D/C Order can be placed): Home Health Service Charges/Coding Visit Charges Inpatient E&M: 50883 Disch Hosp >30min
[2024-08-20 09:19] LABS: Absolute Lymphocyte Count 1.34 X10^3/uL (0.83-4.51); Absolute Neutrophil Count 2.6 X10^3/uL (2.0-7.7); Basophil# 0.01 X10^3/uL; Basophil% 0.2 % (0-1); Eosinophil# 0.01 X10^3/uL; Eosinophils% 0.2 % (0-5); Hematocrit 39.9 % (37-47); Lymphocyte # 1.34 X10^3/ul (0.83-4.51); Lymphocyte % 28.6 % (19-41); Mean Corp Hgb Conc 30.1 g/dL (32-36); Mean Corpuscular Hgb 25.6 pg (27.0-32.0); Mean Corpuscular Volume 85.3 fL (81-99); Mean Platelet Vol. 10.2 fl (6.2-12.0); Monocyte% 14.9 % (0-10); NRBC Flagged by Analyzer 0 % (0-5); Neutrophil # 2.62 X10^3/uL (2.7-7.7); Neutrophil % 55.9 % (47-70); Platelet Count 213 K/mm3 (150-450); RBC Distribution Width CV 13.9 % (11.6-14.6); RBC Distribution Width SD 43.2 fl (35.1-43.9); Red Blood Count 4.68 M/mm3 (4.2-5.4); White Blood Count 4.7 K/mm3 (4.4-11.0)
[2024-08-20 09:50] LABS: Anion Gap 5 (5-15); BUN 19 mg/dL (7-18); BUN/Creat Ratio 17.1 RATIO (10-20); Calcium,Total 9.1 mg/dL (8.5-10.1); Chloride 105 mmol/L (98-107); Creatinine, Serum 1.11 mg/dL (0.55-1.02); EST Glomerular Filtration Rate 51 mL/min (>60); Est Glom Filt Rate - Afr Amer 62 mL/min (>60); Estimated Creatinine Clearance 37.37 ml/min; Glucose 107 mg/dL (74-106); Magnesium 2.4 mg/dL (1.6-2.6); Potassium 4.1 mmol/L (3.5-5.1); Sodium Level 137 mmol/L (136-145)
--- NOTE | 2024-08-20 10:12 | CASEMGMT ---
Pt has an order for DC placed. Will ANTOINE notified of DC via [employer] and DC summary sent.
== END 2024-08-20 12:09 | disposition home health service (06) | DRG 866 ==
LOC: ED 17:51 → MS3 19:45
PROVIDERS: Admitting Provider Internal Medicine; Emergency Provider Surgery; PCP Family Medicine; Referring Provider Surgery; Visit Provider Internal Medicine
DX: J10.81 Influenza due to other identified influenza virus with encephalopathy (principal); J44.0 Chronic obstructive pulmonary disease with (acute) lower respiratory infection; I16.0 Hypertensive urgency; N18.32 Chronic kidney disease, stage 3b; F17.200 Nicotine dependence, unspecified, uncomplicated; Z79.1 Long term (current) use of non-steroidal anti-inflammatories (NSAID); Z79.82 Long term (current) use of aspirin; R45.1 Restlessness and agitation; Z98.51 Tubal ligation status
CPT/HCPCS: 36415; 70450; 71046; 80048; 80053; 81001; 82803; 83605; 83735; 84100; 84443; 84484; 85025; 85610; 85730; 87040; 87086; 87631; 93005; 94668; 97162; 97166; 99285; A4216; J2405